=== PATIENT | male | born 1970 | race Caucasian/White ===

== ENCOUNTER 2019-10-12 06:42 | Outpatient (CLI) | payer OTHER, SELFPAY ==
--- NOTE | ~2019-10-12 | CT_ITS ---
EXAMINATION: CT chest abdomen pelvis w con DATE: 10/12/2019 07:06 INDICATION: Restaging sigmoid colon cancer TECHNIQUE: Computed tomography (CT) of the chest, abdomen, and pelvis was performed with 100 cc Omnip aque 350 intravenous contrast. Automated exposure control and iterative reconstruction technique were employed. Exam dose: 557.28 mGy-cm total exam DLP. COMPARISON: 07/03/2019 CT chest abdomen pelvis FINDINGS: CHEST CT: There are calcified mediastinal and right hilar nodes and calcified right middle lobe pulmonary granu amanda consistent with old granulomatous disease. No hilar or mediastinal mass lesion or lymphadenopathy. Normal heart size. No pericardial effusion. No thoracic aortic aneurysm. No pulmonary infiltrate or consolidation or pulmonary mass lesion is detected. ABDOMEN/PELVIS CT: The liver, gallbladder, spleen, pancreas and adrenal glands are unremarkable. No significant change in size of a calcified lake mass along the right common iliac lake chain sinc e 07/03/2019. Stable shotty periaortic and aortocaval nonenlarged lymph nodes. Normal caliber of the abdominal aorta. There is a suture line at the distal sigmoid area. No bowel obstruction or intraperitoneal free air i s detected. IMPRESSION: No significant change since 07/03/2019: stable prominently calcified right common iliac lake mass, stable shotty nonenlarged periaortic and aortocaval lymph nodes Reviewed, dictated and finalized at [facility]. Reviewed, dictated and finalized at [facility]. IMPRESSION: No significant change since 07/03/2019: stable prominently calcifi ed right common iliac lake mass, stable shotty nonenlarged periaortic and aort ocaval lymph nodes
== END 2019-10-12 06:43 | disposition home or self-care (01) ==
PROVIDERS: PCP Emergency Medicine; Visit Provider Internal Medicine Hematology & Oncology
DX: C18.7 Malignant neoplasm of sigmoid colon (principal)
CPT/HCPCS: 71260; 74177; Q9967

== ENCOUNTER 2020-01-14 10:39 | Outpatient (CLI) | payer OTHER, SELFPAY ==
--- NOTE | ~2020-01-14 | XR_ITS ---
EXAMINATION: XR fl port a cath w contrast DATE: 01/14/2020 11:23 INDICATION: Recent injury to the chest with bruising at the site of a recently placed port catheter. TECHNIQUE: A cine run of 120 fluoroscopic images of the chest were obtained during injection of Omnip aque 240 intravenous contrast into the patient's right internal jugular central venous port catheter. The amount of fluoroscopy time used during this procedure was 0.1 minutes. COMPARISON: None. FINDINGS: Images demonstrate contrast filling the reservoir and catheter of a right internal jugular central venous port catheter. Contrast reaches fourth from the distal tip of the catheter which is po sitioned in the right atrium. No evident contrast leak, kink or discontinuity in the catheter. Calcif ied nodules in the right lower lung zone consistent with old granulomatous disease. Visualized portio ns of the lungs are otherwise clear. IMPRESSION: 1. Right internal jugular central venous port catheter which appears intact with injected contrast dr briggs from the distal tip which is in the right atrium. Reviewed, dictated and finalized at [facility]. IMPRESSION: 1. Right internal jugular central venous port catheter which appears intact wit h injected contrast draining from the distal tip which is in the right atrium.
== END 2020-01-14 10:40 | disposition home or self-care (01) ==
LOC: ANHIMG 10:48
PROVIDERS: PCP Emergency Medicine; Visit Provider Internal Medicine Hematology & Oncology
DX: C18.7 Malignant neoplasm of sigmoid colon (principal)
CPT/HCPCS: 36598; Q9966

== ENCOUNTER 2020-01-27 06:45 | Outpatient (CLI) | payer OTHER, SELFPAY ==
--- NOTE | ~2020-01-27 | CT_ITS ---
EXAMINATION: CT chest abdomen pelvis w con DATE: 01/27/2020 07:31 INDICATION: Colon cancer restaging TECHNIQUE: Computed tomography (CT) of the chest, abdomen, and pelvis was performed with 100 cc Omnip aque 350 intravenous contrast. Automated exposure control and iterative reconstruction technique were employed. Exam dose: 1030.87 mGy-cm total exam DLP. COMPARISON: 10/12/2019 CT chest abdomen pelvis FINDINGS: CHEST CT: Right Port-A-Cath catheter present in the upper right atrium. Normal size and homogeneous enhancement of the thyroid gland. There are calcified right pulmonary granulomas and calcified right hilar nodes and calcified mediasti nal nodes, consistent with old pulmonary granulomatous disease. No hilar or mediastinal mass lesion or lymphadenopathy. Normal heart size. No thoracic aortic aneurysm or dissection. No pericardial or pleural effusion. No pulmonary infiltrate or consolidation is evident. No pulmonary mass lesion or apparent pulmonary m etastatic disease is detected. ABDOMEN/PELVIS CT: There is hepatic steatosis. No hepatic space-occupying mass lesion is evident. Spleen measures 12 cm in height; 14 cm is upper limits of normal. No splenic mass lesion. No pancreat ic mass lesion or calcification. The gallbladder is unremarkable. No bile duct or pancreatic duct dilatation. Normal adrenal glands. No renal mass lesion. No urinary tract calculus or hydroureteronephrosis. Normal caliber of the abdominal aorta. The urinary bladder, prostate gland and seminal vesicles are unremarkable. No interval intraperitoneal or retroperitoneal or pelvic mass lesion or adenopathy or any ascites is noted compared to 10/12/2019. There is stable probably calcified right common iliac proximal external iliac lake mass, stable shotty nonenlarged periaortic and aortocaval lymph nodes. There is a suture line at the distal sigmoid colon area from colon resection for history of colon can cer. No bowel obstruction or bowel wall thickening, pneumatosis or intraperitoneal free air is detect ed. Skeletal: No suspicious osteolytic or osteoblastic lesions IMPRESSION: No evidence of recurrent or metastatic colon cancer is detected; stable calcified right common and external iliac lake mass, not significantly changed since 10/12/2019 Right Port-A-Cath catheter in upper right atrium Reviewed, dictated and finalized at [facility]. Reviewed, dictated and finalized at [facility]. IMPRESSION: No evidence of recurrent or metastatic colon cancer is detected; s table calcified right common and external iliac lake mass, not significantly c hanged since 10/12/2019 Right Port-A-Cath catheter in upper right atrium
== END 2020-01-27 06:46 | disposition home or self-care (01) ==
LOC: ANHIMG 06:47
PROVIDERS: PCP Emergency Medicine; Visit Provider Internal Medicine Hematology & Oncology
DX: C18.7 Malignant neoplasm of sigmoid colon (principal); Z95.828 Presence of other vascular implants and grafts
CPT/HCPCS: 71260; 74177; 99211; G0463; Q9967

== ENCOUNTER 2020-05-03 09:26 | Outpatient (CLI) | payer OTHER, SELFPAY ==
--- NOTE | ~2020-05-03 | CT_ITS ---
EXAMINATION: CT chest abdomen pelvis w con DATE: 05/03/2020 10:06 INDICATION: Malignant neoplasm of the sigmoid colon TECHNIQUE: Transaxial computed tomographic images of the chest, abdomen, and pelvis were obtained aft er the administration of 100 cc of Omnipaque 350 intravenous contrast. The dose-length product (DLP) was 1161.22 mGy-cm. Automated exposure control and iterative reconstruction technique were employed. COMPARISON: 01/27/2020, 10/11/2018, 07/10/2018 FINDINGS: CHEST CT: There is mild dependent atelectasis. Calcified pulmonary nodules and calcified right hilar and medias tinal lymph nodes are consistent with old granulomatous disease. There is no pleural effusion or pneu mothorax. Mild right perihilar lymphadenopathy is stable. The heart size is normal. A right internal jugular Port-A-Cath ends with its tip in the proximal right atrium. ABDOMEN/PELVIS CT: The liver is diffusely low in attenuation when compared with the spleen, consisten t with hepatic steatosis. The spleen, pancreas, gallbladder, and adrenal glands are normal. The kidne ys are unremarkable. There is an 2.9 x 2.9 x 6.7 cm calcified mass in the right retroperitoneum which is stable since the most recent comparison but decreased in size since PET CT dated 07/10/2019. Nikolas tional mild retroperitoneal lymphadenopathy is unchanged. There is no new lymphadenopathy identified. Surgical changes are noted in the sigmoid colon. There is no free intraperitoneal gas or evidence of bowel obstruction. There is mild lumbar spondylosis. There are tiny umbilical and inguinal hernias containing fat. IMPRESSION: 1. Stable right retroperitoneal mass and mild lymphadenopathy, consistent with treated metastatic dis ease. No new metastases identified. Reviewed, dictated and finalized at [facility]. IMPRESSION: 1. Stable right retroperitoneal mass and mild lymphadenopathy, consistent with treated metastatic disease. No new metastases identified.
== END 2020-05-03 09:27 | disposition home or self-care (01) ==
PROVIDERS: PCP Emergency Medicine; Visit Provider Internal Medicine Hematology & Oncology
DX: C18.7 Malignant neoplasm of sigmoid colon (principal)
CPT/HCPCS: 71260; 74177; Q9967

== ENCOUNTER 2020-07-26 09:40 | Outpatient (CLI) | payer OTHER, SELFPAY ==
--- NOTE | ~2020-07-26 | CT_ITS ---
EXAMINATION: CT chest abdomen pelvis w con DATE: 07/26/2020 10:23 INDICATION: Malignant neoplasm of the sigmoid colon TECHNIQUE: Transaxial computed tomographic images of the chest, abdomen, and pelvis were obtained aft er the administration of 100 cc of Omnipaque 350 intravenous contrast. The dose-length product (DLP) was 1049.02 mGy-cm. Automated exposure control and iterative reconstruction technique were employed. COMPARISON: 05/03/2020 FINDINGS: CHEST CT: A right internal jugular Port-A-Cath ends with its tip in the proximal right atrium. There is space o pacities are identified. There is no pleural effusion or pneumothorax. The heart size is normal. The previously described mild right hilar lymphadenopathy has decreased. Calcified pulmonary nodules and calcified hilar and mediastinal lymph nodes are consistent with old granulomatous disease. ABDOMEN/PELVIS CT: The liver is diffusely low in attenuation when compared with the spleen, consistent with hepatic stea tosis. The spleen, pancreas, gallbladder, and adrenal glands are normal. The kidneys are unremarkable . There is a stable partially calcified mass in the right retroperitoneum. Mild retroperitoneal lymph adenopathy also persists without significant change. There is no free intraperitoneal gas or evidence of bowel obstruction. A surgical anastomosis is noted in the sigmoid colon. IMPRESSION: 1. Stable right retroperitoneal mass and retroperitoneal lymphadenopathy, consistent with treated met astatic disease. No new metastases evident in the chest, abdomen, or pelvis. Reviewed, dictated and finalized at location [facility]. UATE STUDENT IMPRESSION: 1. Stable right retroperitoneal mass and retroperitoneal lymphadenopathy, consi stent with treated metastatic disease. No new metastases evident in the chest, abdomen, or pelvis.
== END 2020-07-26 09:41 | disposition home or self-care (01) ==
LOC: ANHIMG 09:44
PROVIDERS: PCP Emergency Medicine; Visit Provider Internal Medicine Hematology & Oncology
DX: C18.7 Malignant neoplasm of sigmoid colon (principal); K76.0 Fatty (change of) liver, not elsewhere classified
CPT/HCPCS: 71260; 74177; Q9967

== ENCOUNTER 2020-12-13 09:47 | Outpatient (CLI) | payer MEDICARE, MEDICAID, SELFPAY ==
--- NOTE | ~2020-12-13 | CT_ITS ---
EXAMINATION: CT chest abdomen pelvis w con DATE: 12/13/2020 10:08 INDICATION: Colon cancer. TECHNIQUE: Computed tomography (CT) of the chest, abdomen, and pelvis was performed with 100 mL Omnip aque 350 intravenous contrast. Automated exposure control and iterative reconstruction technique were employed. The dose-length product was 984.92 mGy-cm. COMPARISON: CT 07/26/2020 FINDINGS: CHEST CT: The lungs demonstrate mild atelectasis. Calcified right lung nodules and calcified right hilar and me diastinal lymph nodes are consistent with old granulomatous disease. No pleural effusion. There is a right internal jugular port with tip in right atrium. The heart size is normal. No pericardial effusi on. There is mild thoracic spondylosis. ABDOMEN/PELVIS CT: The liver, gallbladder, spleen, pancreas, adrenal glands, and kidneys are normal. There are no dilate d loops of bowel. There is an anastomosis in the sigmoid colon. The appendix is normal. There is aort ocaval, left para-aortic, and right common iliac lymphadenopathy, some of which is calcified. For exa mple, a calcified right common iliac node measures 2.9 x 3.2 cm, stable from 07/26/2020 and decreased from 4.9 x 4.8 cm on 06/16/2018. There is a right inguinal hernia containing fat. There is moderate lo wer lumbar spondylosis. IMPRESSION: 1. Stable pelvic and retroperitoneal lymphadenopathy, consistent with metastatic disease. Reviewed, dictated and finalized at [facility]. IMPRESSION: 1. Stable pelvic and retroperitoneal lymphadenopathy, consistent with metastati c disease.
== END 2020-12-13 09:48 | disposition home or self-care (01) ==
PROVIDERS: PCP Emergency Medicine; Visit Provider Internal Medicine Hematology & Oncology
DX: C18.7 Malignant neoplasm of sigmoid colon (principal); R59.0 Localized enlarged lymph nodes
CPT/HCPCS: 71260; 74177; Q9967

== ENCOUNTER 2021-04-21 06:51 | Outpatient (CLI) | payer MEDICARE, MEDICAID, SELFPAY ==
--- NOTE | ~2021-04-21 | CT_ITS ---
EXAMINATION: CT chest abdomen pelvis w con DATE: 04/21/2021 07:15 INDICATION: Malignant neoplasm of the sigmoid colon TECHNIQUE: Transaxial computed tomographic images of the chest, abdomen, and pelvis were obtained aft er the administration of 100 cc of Omnipaque 350 intravenous contrast. The dose-length product (DLP) was 924.16 mGy-cm. Automated exposure control and iterative reconstruction technique were employed. COMPARISON: 12/13/2020, 07/26/2020 FINDINGS: CHEST CT: There is mild dependent atelectasis. Calcified pulmonary nodules and calcified right hilar and medias tinal lymph nodes are consistent with old granulomatous disease. No pathologically enlarged thoracic lymph nodes are identified. The heart size is normal. No pleural effusion or pneumothorax is identifi ed. A right internal jugular Port-A-Cath ends with its tip in the right atrium. ABDOMEN/PELVIS CT: The liver, spleen, pancreas, gallbladder, and adrenal glands are normal. The kidneys are unremarkable . Aortocaval, left periaortic, and right common iliac lymphadenopathy is stable to slightly improved. For instance, a 3.3 x 2.7 cm partially calcified right common iliac chain lymph node previously rosmery ured 3.2 x 2.9 cm. No new lymphadenopathy is identified. There are no dilated loops of bowel. A surgi patricia anastomosis is noted in the sigmoid colon. There is a right extrarenal hernia containing fat. The re is moderate lumbar spondylosis. IMPRESSION: 1. Stable slightly improved pelvic and retroperitoneal lymphadenopathy, consistent with metastatic di sease. No new metastasis identified. Reviewed, dictated and finalized at [facility]. IMPRESSION: 1. Stable slightly improved pelvic and retroperitoneal lymphadenopathy, consist ent with metastatic disease. No new metastasis identified.
== END 2021-04-21 06:52 | disposition home or self-care (01) ==
PROVIDERS: PCP Emergency Medicine; Visit Provider Internal Medicine Hematology & Oncology
DX: C18.7 Malignant neoplasm of sigmoid colon (principal); R59.0 Localized enlarged lymph nodes
CPT/HCPCS: 71260; 74177; Q9967

== ENCOUNTER 2021-08-24 09:39 | Outpatient (CLI) | payer MEDICARE, MEDICAID, SELFPAY ==
--- NOTE | ~2021-08-24 | CT_ITS ---
EXAMINATION: CT chest abdomen pelvis w con DATE: 08/24/2021 10:05 INDICATION: Restaging of malignant neoplasm of sigmoid colon TECHNIQUE: Computed tomography (CT) of the chest, abdomen, and pelvis was performed with 100 cc Omnip aque 350 intravenous contrast. Automated exposure control and iterative reconstruction technique were employed. Exam dose: 965.71 mGy-cm total exam DLP. COMPARISON: 04/21/2021, 12/13/2020, 07/26/2020, 05/03/2020, 01/27/2020 CT chest abdomen pelvis examinations FINDINGS: CHEST CT: Calcified lobe granuloma and calcified right hilar and mediastinal nodes, consistent with old pulmona ry granulomatous disease. There is minimal discoid atelectasis in the right lower lobe. No pulmonary infiltrate or consolidatio n or pulmonary mass lesion is evident. No hilar or mediastinal mass lesion or lymphadenopathy. No thoracic aortic aneurysm or dissection. Normal heart size. No pericardial or pleural effusion. Small sliding hiatal hernia. ABDOMEN/PELVIS CT: Suggestion of a new approximately 1.5 cm x 2 subtle mass at medial dome of the liver. No hepatic spac e-occupying mass lesion is noted otherwise. The gallbladder is present. No gallbladder wall thickening or pericholecystic fluid or fat stranding. No bile duct or pancreatic duct dilatation. No pancreatic mass lesion or calcification. Splenic size is within normal range. Normal morphology of the adrenal glands. No renal mass lesion or urinary tract calculus or hydroureteronephrosis. Normal caliber of the abdominal aorta. Previous distal left periaortic lymph node currently measures 14 x 23.5 mm compared to 7 x 17 mm on 1 . There is increased calcified mass along the right common and proximal external iliac node chain, rosmery uring up to 8.1 cm vertical dimension compared to approximately 6.5 cm on 05/01/2021, measuring up to 4.2 cm transverse dimension compared to 3.2 cm previously. There is a suture line at the distal sigmoid colon. No bowel obstruction. There is a prominent amount of fecal material in the colon. The prostate gland is moderately enlarged. There is diffuse thickening of the urinary bladder wall. Small bilateral fat-containing inguinal hernias. No suspicious osteolytic or osteoblastic lesions are noted. IMPRESSION: Suggestion of a new hepatic metastasis Increased adenopathy in the distal left periaortic area and along the right common and proximal exter nal iliac lake chains Reviewed, dictated and finalized at [facility]. Reviewed, dictated and finalized at [facility]. 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
== END 2021-08-24 09:40 | disposition home or self-care (01) ==
LOC: ANHIMG 09:44
PROVIDERS: PCP Emergency Medicine; Visit Provider Internal Medicine Hematology & Oncology
DX: C18.7 Malignant neoplasm of sigmoid colon (principal)
CPT/HCPCS: 71260; 74177; Q9967

== ENCOUNTER 2021-10-26 15:14 | Emergency (ER) | payer MEDICARE, MEDICAID, SELFPAY ==
--- NOTE | ~2021-10-26 | CT_ITS ---
EXAMINATION: CT abdomen pelvis w con DATE: 10/26/2021 16:37 INDICATION: CVA tenderness, lower back pain. History of malignant sigmoid colon neoplasm TECHNIQUE: Computed tomography (CT) of the abdomen and pelvis was performed with 100 CC Omnipaque 350 intravenous contrast. Automated exposure control and iterative reconstruction technique were employe d. Exam dose: 667.79 mGy-cm total exam DLP. COMPARISON: August 24, 2021, April 21, 2021, December 13, 2020, July 262020, July 26T chest abdomen pelvis FINDINGS: There is old pulmonary granulomatous disease, including middle lobe calcified pulmonary tra angelia, right hilar and subcarinal calcified lymph nodes . No pulmonary infiltrate or consolidation is noted in the included lower lung zones. Normal heart size. No pericardial or pleural effusion. Again noted is an approximately 2 cm mass at the medial hepatic dome, possibly a metastasis. The live r, spleen, pancreas, adrenal glands and kidneys are otherwise unremarkable. Normal caliber of the abdominal aorta. Interval mild enlargement of extensively calcified adenopathy at the distal abdominal aorta and right common and external iliac lake chain, with some surrounding fat stranding suggesting some adjacent inflammation or tumor infiltration. Stable up to approximately 1.4 x 2.5 cm left common iliac lymphadenopathy. Small fat-containing right inguinal hernia. Status post sigmoid colon resection. No bowel obstruction, bowel wall thickening, pneumatosis or intr aperitoneal free air. Small fat-containing umbilical hernia. Moderate degenerative disc disease and mild retrolisthesis at L5-S1. No suspicious osteolytic or osteoblastic lesions are noted. IMPRESSION: Stable hepatic dome mass, likely a metastatic deposit Mildly increased right distal abdominal aortic and common iliac lymphadenopathy with surrounding fat stranding which may indicate inflammation or tumor infiltration Status post sigmoid colon resection Fat-containing right inguinal hernia Small fat-containing umbilical hernia Small sliding hiatal hernia Reviewed, dictated and finalized at [facility]. Reviewed, dictated and finalized at [facility]. IMPRESSION: Stable hepatic dome mass, likely a metastatic deposit Mildly increased right distal abdominal aortic and common iliac lymphadenopathy with surrounding fat stranding which may indicate inflammation or tumor infilt ration Status post sigmoid colon resection Fat-containing right inguinal hernia Small fat-containing umbilical hernia Small sliding hiatal hernia
[2021-10-26 15:16] VITALS: BP 114/77; PULSE 100; RESP 16; TEMP 36.4; O2SAT 99
--- NOTE | 2021-10-26 15:37 | ED.BACK ---
HPI - Back Pain/Injury General Chief Complaint: Back Pain/Injury Stated Complaint: R. sided back pain Time Seen by Provider: 10/26/21 15:30 History of Present Illness HPI Narrative: 51-year-old male presents the emergency room with acute onset of right hip/CVA tenderness that began last night. Patient is unable to describe his pain, saying it just hurts . Patient denies any alleviating or aggravating factors with the pain. Patient denies dysuria, difficulty urinating, or hematuria. Patient denies abdominal pain. Denies fever. Patient has a known history of colon cancer, which he is receiving chemotherapy for. Patient also states that his oncologist recently found a lesion on his liver. Related Data Home Medications Medication Instructions Recorded Confirmed cyanocobalamin (vitamin B-12) 1,000 mcg PO DAILY 04/28/19 10/04/21 ferrous sulfate 324 mg PO DAILY 04/28/19 10/04/21 ondansetron HCl 4 mg PO Q4-6H PRN 04/28/19 10/04/21 aspirin [Adult Low Dose Aspirin] 81 mg PO DAILY 09/14/19 10/04/21 potassium chloride [Klor-Con 10] 10 meq PO BID 04/19/20 10/04/21 pediatric multivitamin no.76 1 tablet PO DAILY 04/21/20 10/04/21 [Flintstones Complete] Allergies Allergy/AdvReac Type Severity Reaction Status Date / Time No Known Allergies Allergy Verified 10/26/21 15:29 Review of Systems Review of Systems: CONSTITUTIONAL: Denies fever, chills, or sweats. EYES: Denies visual changes, redness, or discharge. ENT: Denies rhinorrhea, congestion, sore throat, or otalgia. CARDIOVASCULAR: Denies chest pain, palpitations, or edema. RESPIRATORY: Denies cough or dyspnea. GASTROINTESTINAL: Denies abdominal pain, nausea, diarrhea, vomiting GENITOURINARY: Denies dysuria or hematuria. SKIN: Denies rash or itching. MUSCULOSKELETAL: Reports low back pain NEUROLOGIC: Denies headache, numbness, dizziness, or weakness. PSYCHIATRIC: Denies anxiety or depression. Exam Narrative: GENERAL: Well-appearing, well-nourished, and in no acute distress. HEAD: Normocephalic, atraumatic. EYES: PERRLA and EOMI. CHEST: Clear to auscultation. No respiratory distress. No wheezes rales or rhonchi HEART: Regular rate and rhythm. No murmur heard. Normal peripheral pulses. ABDOMEN: Soft, nontender, nondistended, normal active bowel sounds. EXTREMITIES: Normal range of motion. No edema. Tenderness to the right iliac crest. No signs of soft tissue swelling, tenderness, ecchymosis SKIN: Warm, dry, no rash. NEURO: No focal deficits. Alert and oriented x3. PSYCH: Normal mood and affect. Course Vital Signs Vital signs: Vital Signs Temperature 36.4 C 10/26/21 15:16 Pulse Rate 100 10/26/21 15:16 Respiratory Rate 16 10/26/21 15:16 Blood Pressure 114/77 10/26/21 15:16 Pulse Oximetry 99 10/26/21 15:16 Temperature 36.4 C 10/26/21 15:16 Pulse Rate 100 10/26/21 15:16 Respiratory Rate 16 10/26/21 15:16 Blood Pressure 114/77 10/26/21 15:16 Pulse Oximetry 99 10/26/21 15:16 MDM - Back Pain/Injury MDM Narrative Medical decision making narrative: 51-year-old male presented emergency room with acute onset of right hip pain. Patient has a history of colon cancer with mets to the liver. CT scan was obtained to evaluate for possible bone mets. CT was negative for any new acute intra-abdominal abnormalities. CBC and CMP were unremarkable. Patient responded well to IV Toradol. Patient likely experiencing muscle skeletal pain. Medical Records Attestation: I reviewed the patient's medical records. Lab Data Attestation: I reviewed the patient's lab results. Result diagrams: 10/26/21 15:52 10/26/21 15:52 Labs: Lab Results 10/26/21 10/26/21 10/26/21 Range/Units 15:52 15:52 16:10 WBC 8.4 (4.5-10.0) K/mm3 RBC 4.84 (4.6-6.20) M/mm3 Hgb 15.0 (14.0-18.0) g/dL Hct 42.9 (42.0-52.0) % MCV 88.6 D (80-100) fl MCH 31.0 (26-34) pg MCHC 35.0 (32-36) g/dl RDW 13.3 (11.5-14.5)
[2021-10-26 15:57] LABS: Basophils Percent Auto 0.5 % (0.2-1.2); Eosinophils Absolute Auto 0.1 K/mm3 (0-0.3); Eosinophils Percent Auto 0.6 % (0-4.4); Hematocrit 42.9 % (42.0-52.0); Immature Granulocyte Absolute 0.03 K/mm3 (0.00-0.031); Immature Granulocyte Percent A 0.4 % (0-0.5); Lymphocytes Absolute Auto 1.31 K/mm3 (0.9-3.2); Lymphocytes Percent Auto 15.6 % (18.3-44.2); Mean Corpuscular Volume 88.6 fl (80-100); Mean Platelet Volume 9.1 fl (7.4-10.4); Monocytes Absolute Auto 0.8 K/mm3 (0.1-0.6); Monocytes Percent Auto 9.4 % (2.6-8.5); Neutrophils Absolute Auto 6.2 K/mm3 (1.3-6.7); Neutrophils Percent Auto 73.5 % (45.5-73.1); Platelet Count Result 273 k/mm3 (150-375); Red Blood Count 4.84 M/mm3 (4.6-6.20); Red Cell Distribution Width 13.3 % (11.5-14.5); White Blood Count 8.4 K/mm3 (4.5-10.0)
[2021-10-26] MEDS: KETOROLAC 30 MG/ML VIAL (*BKC) IV PUSH (16:08)
[2021-10-26 16:14] LABS: Alanine Aminotransferase 30 U/L (4-50); Albumin Level 4.4 g/dL (3.5-5.1); Alkaline Phosphatase 117 U/L (38-126); Anion Gap 7 mmol/L (8-16); Aspartate Amino Transferase 35 U/L (17-59); Bilirubin,Total 0.6 mg/dL (0.2-1.3); Blood Urea Nitrogen 14 mg/dL (9-20); Calcium 9.2 mg/dL (8.4-10.2); Carbon Dioxide 27 mmol/L (22-30); Chloride 101 mmol/L (98-107); Estimated Glomerular Filt Rate > 60; Glucose 124 mg/dL (65-110); Potassium 4.1 mmol/L (3.4-5.0); Sodium 135 mmol/L (137-145)
[2021-10-26 16:28] LABS: Appearance Urine Clear (Clear); Bilirubin Urine Negative (Negative); Blood Urine Negative (Negative); Color Urine Yellow (Yellow); Glucose Urine UA Negative (Negative); Ketones Urine Negative (Negative); Leukocyte Esterase Ur Negative LEU/UL (Negative); Nitrate Urine Negative (Negative); Protein Urine Negative (Negative); Specific Grav Ur 1.025 (1.001-1.035); Urobilinogen Urine 0.2 mg/dL (<2.0); pH Urine 6.5 (5.0-9.0)
[2021-10-26 16:33] LABS: Bacteria Urine Trace /hpf; Mucus Urine Few /lpf; WBC Urine 0-3 /hpf
[2021-10-26 16:36] LABS: Add Urine Microscopic? NO
[2021-10-26 17:54] VITALS: BP 111/73; PULSE 95; RESP 16; O2SAT 98
== END 2021-10-26 17:56 | disposition home or self-care (01) ==
PROVIDERS: Emergency Provider Nurse Practitioner Family
DX: M54.50 Low back pain, unspecified (principal); C18.9 Malignant neoplasm of colon, unspecified; C78.7 Secondary malignant neoplasm of liver and intrahepatic bile duct; Z79.82 Long term (current) use of aspirin; Z90.49 Acquired absence of other specified parts of digestive tract; Z79.899 Other long term (current) drug therapy; K40.90 Unilateral inguinal hernia, without obstruction or gangrene, not specified as recurrent; K42.9 Umbilical hernia without obstruction or gangrene; K44.9 Diaphragmatic hernia without obstruction or gangrene
CPT/HCPCS: 36415; 74177; 80053; 81003; 85025; 96374; 99284; J1885; Q9967

== ENCOUNTER 2022-01-17 18:22 | Emergency (ER) | payer OTHER, SELFPAY ==
[2022-01-17] VITALS (22 sets, daily range): BP systolic 103–119; BP diastolic 67–84; PULSE 89–129; RESP 14–28; TEMP 36.9–37.9; O2SAT 96–99
--- NOTE | ~2022-01-17 | XR_ITS ---
EXAMINATION: XR chest 1V portable Exam Date/Time: 01/17/2022 19:10 CDT HISTORY: COUGH,FATIGUE,generalized malaise X 1 day hx port in 2018 Comparison: 06/20/2018. RESULT: Lines, tubes, and devices: Right chest implanted port, tip at the cavoatrial junction. Lungs and pleura: Clear. Cardiomediastinal silhouette: Stable cardiomediastinal silhouette. Other: No acute osseous or upper abdominal finding. IMPRESSION: No acute cardiopulmonary process. Reviewed, dictated and finalized at location K.
--- NOTE | 2022-01-17 19:14 | ED.GENADULT ---
HPI - General Adult General Chief complaint: Upper Respiratory Infection Stated complaint: sore throat, cough, fatigue Time Seen by Provider: 01/17/22 19:02 Source: RN notes reviewed History of Present Illness HPI narrative: Patient presents emergency department from home for upper respiratory infection patient states that symptoms began yesterday. States he has cough this been nonproductive as well as a sore throat and fatigue. States that he has had some mild nausea but denies any vomiting or diarrhea. Patient states he does have a history of colon cancer and is currently on chemotherapy with last chemo 2 weeks ago and is followed by Dr. marc. Patient states family is present states the ulcer that was upper respiratory infection patient states he has not been vaccinated for COVID-19 Related Data Home Medications Medication Instructions Recorded Confirmed cyanocobalamin (vitamin B-12) 1,000 mcg PO DAILY 04/28/19 01/03/22 1,000 mcg capsule ferrous sulfate 324 mg (65 mg 324 mg PO DAILY 04/28/19 01/03/22 iron) tablet,delayed release ondansetron HCl 4 mg tablet 4 mg PO Q4-6H PRN Pain 04/28/19 01/03/22 aspirin 81 mg tablet,delayed 81 mg PO DAILY 09/14/19 01/03/22 release (Adult Low Dose Aspirin) potassium chloride 10 mEq 10 meq PO BID 04/19/20 01/03/22 tablet,extended release (Klor-Con) pediatric multivitamin no.76 1 tablet PO DAILY 04/21/20 01/03/22 (Flintstones Complete chewable tablet) lidocaine-prilocaine 2.5 %-2.5 % See Rx Instructions .Route .COMPLEX 11/08/21 01/03/22 topical cream doxycycline calcium 12/06/21 Allergies Allergy/AdvReac Type Severity Reaction Status Date / Time No Known Allergies Allergy Verified 01/17/22 18:48 Review of Systems Review of Systems: Gen.: Reports fever Eyes: Denies eye pain or visual change ENT: See HPI Respiratory: Denies shortness of breath reports cough CV: Denies chest pain or palpitations GI: Denies abdominal pain nausea, emesis or diarrhea Musculoskeletal: Denies back pain or muscle pain Neuro: Denies numbness, tingling, weakness or focal weakness Skin: Denies rash Except as documented, all other systems reviewed and negative [facility] Past Medical History Medical History (Updated 01/17/22 @ 22:57 by Aris Lopez DO) Malignant neoplasm of sigmoid colon Social History Social History (Updated 01/17/22 @ 19:15 by Aris Lopez DO) Smoking status: Never smoker Exam Narrative: APPEARANCE: No acute distress, nontoxic, resting in bed EYES: EOMI HEENT: Normocephalic, atraumatic, OMM mild erythema no exudate posterior pharynx and bilateral tonsils uvula midline RESPIRATORY: No respiratory distress Clear to auscultation bilaterally with no rhonchi wheezing or rales. CARDIOVASCULAR: Regular rate and rhythm without murmurs rubs or gallops. ABDOMINAL: Soft, nontender, nondistended, no rebound or guarding MUSCULOSKELETAl: Moves all extremities. No clubbing, cyanosis or edema. NEURO: Awake and alert. Following commands, speech normal, no focal deficits SKIN:: Warm, dry. No rashes lesions or abrasions PSYCHIATRIC: Normal affect/mood, Course Course Emergency Course: Patient states he is feeling much better at this time Discussed with Dr. marc agrees with plan for discharge at this time agrees with plan to start patient on Paxlovid Discussed with patient results of workup and diagnosis. Discussed need for follow-up with primary care, proper use of medication, and reasons to return to the emergency department. Patient understands and agrees to current treatment plan Vital Signs Vital signs: Vital Signs Temperature 99.9 F H 01/17/22 18:25 Pulse Rate 113 H 01/17/22 18:25 Respiratory Rate 18 01/17/22 18:25 Blood Pressure 103/83 01/17/22 18:25 Pulse Oximetry 98 01/17/22 18:25 Oxygen Delivery Room Air 01/17/22 18:25 Temperature 98.5 F 01/17/22 22:40 Pulse Rate 100 01/17/22 22:40 Respiratory Rate 17 01/17/22 22:
--- NOTE | 2022-01-17 19:22 | PC.NURSE ---
Patient report given to LILLY Ross. All questions answered and care of patient transferred.
[2022-01-17] MEDS: SODIUM CHLORIDE 0.9% IV 1,000 ML 999 ML IV CONT ×2 (19:58→22:09)
[2022-01-17 20:01] LABS: Basophils Percent Auto 0.3 % (0.2-1.2); Hemoglobin 13.7 g/dL (14.0-18.0); Immature Granulocyte Absolute 0.02 K/mm3 (0.00-0.031); Immature Granulocyte Percent A 0.3 % (0-0.5); Lymphocytes Absolute Auto 0.65 K/mm3 (0.9-3.2); Lymphocytes Percent Auto 8.5 % (18.3-44.2); Mean Corpuscular HGB Conc 32.6 g/dl (32-36); Mean Corpuscular Hemoglobin 29.8 pg (26-34); Mean Corpuscular Volume 91.5 fl (80-100); Mean Platelet Volume 9.3 fl (7.4-10.4); Monocytes Absolute Auto 0.8 K/mm3 (0.1-0.6); Monocytes Percent Auto 10.6 % (2.6-8.5); Neutrophils Absolute Auto 6.2 K/mm3 (1.3-6.7); Neutrophils Percent Auto 80.3 % (45.5-73.1); Platelet Count Result 203 k/mm3 (150-375); Red Blood Count 4.59 M/mm3 (4.6-6.20); White Blood Count 7.7 K/mm3 (4.5-10.0)
[2022-01-17 20:10] LABS: Lipase 38 U/L (23-300)
[2022-01-17 20:13] LABS: Alanine Aminotransferase 53 U/L (6-50); Albumin Level 4.3 g/dL (3.5-5.1); Alkaline Phosphatase 117 U/L (38-126); Anion Gap 5 mmol/L (8-16); Aspartate Amino Transferase 38 U/L (17-59); Bilirubin,Total 0.7 mg/dL (0.2-1.3); Blood Urea Nitrogen 13 mg/dL (9-20); Calcium 8.3 mg/dL (8.4-10.2); Carbon Dioxide 27 mmol/L (22-30); Chloride 104 mmol/L (98-107); Estimated CRCL calculation 101 ml/min; Estimated Glomerular Filt Rate > 60; Glucose 114 mg/dL (65-110); Potassium 3.3 mmol/L (3.4-5.0); Sodium 136 mmol/L (137-145)
[2022-01-17 20:19] LABS: Influenza A QL RT-PCR Negative (Negative); Influenza B QL RT-PCR Negative (Negative); SARS-CoV-2 RNA PCR Positive
[2022-01-17 20:34] LABS: Appearance Urine Clear (Clear); Bilirubin Urine 1+ (Negative); Blood Urine Trace-lysed (Negative); Color Urine Yellow (Yellow); Glucose Urine UA Negative (Negative); Ketones Urine 3+ mg/dL (Negative); Leukocyte Esterase Ur Negative LEU/UL (Negative); Nitrate Urine Negative (Negative); Protein Urine 1+ mg/dL (Negative); Specific Grav Ur 1.025 (1.001-1.035); Urobilinogen Urine 0.2 mg/dL (<2.0); pH Urine 5.5 (5.0-9.0)
[2022-01-17 20:42] LABS: Mucus Urine Heavy /lpf; Squamous Epithelial Cell Urine Rare /hpf (Few); WBC Urine 0-3 /hpf
[2022-01-17 21:01] LABS: Add Urine Microscopic? YES
[2022-01-17] MEDS: POTASSIUM CHLORIDE 20 MEQ TABLET PO (22:07)
[2022-01-18] VITALS (8 sets, daily range): BP systolic 107–115; BP diastolic 73–78; PULSE 91–93; RESP 18–23; TEMP 37.1; O2SAT 96–98
[2022-01-18] MEDS: HEPARIN SODIUM LOCK FLUSH 500 UNITS/5 ML VIAL IV PUSH (00:58)
== END 2022-01-18 01:10 | disposition home or self-care (01) ==
PROVIDERS: Emergency Provider Emergency Medicine
DX: U07.1 COVID-19 (principal)
CPT/HCPCS: 36415; 71045; 80053; 81001; 83690; 85025; 87502; 96361; 96365; 96367; 96375; 99284; A9270; C9803; J0131; J1642; J7030; U0003; U0005

== ENCOUNTER 2022-01-25 07:55 | Outpatient (CLI) | payer OTHER, SELFPAY ==
--- NOTE | ~2022-01-25 | US_ITS ---
EXAMINATION: US right upper quadrant DATE: 01/25/2022 08:41 INDICATION: Abnormal liver function tests. TECHNIQUE: Multiple grayscale and Doppler ultrasound images of the abdomen were obtained. COMPARISON: CT abdomen and pelvis 10/26/2021 FINDINGS: The pancreas is obscured by bowel gas. There is diffuse hepatic steatosis with focal sparin g in the gallbladder fossa. There is normal flow in main portal vein. The gallbladder is normal in si ze and contains sludge. No gallbladder wall thickening or sonographic Hoang sign. The common duct is normal and measures 4 mm. IMPRESSION: 1. Diffuse hepatic steatosis. 2. Gallbladder sludge. No evidence of acute cholecystitis. Reviewed, dictated and finalized at location A.
== END 2022-01-25 07:56 | disposition home or self-care (01) ==
LOC: ANHIMG 07:59
PROVIDERS: Visit Provider Emergency Medicine
DX: R74.01 Elevation of levels of liver transaminase levels (principal); R10.9 Unspecified abdominal pain; K76.0 Fatty (change of) liver, not elsewhere classified
CPT/HCPCS: 76705

== ENCOUNTER 2022-01-31 09:09 | Outpatient (CLI) | payer OTHER, SELFPAY ==
[2022-01-31 09:50] LABS: Anion Gap 4 mmol/L (8-16); Blood Urea Nitrogen 7 mg/dL (9-20); Calcium 8.9 mg/dL (8.4-10.2); Carbon Dioxide 29 mmol/L (22-30); Chloride 106 mmol/L (98-107); Estimated Glomerular Filt Rate > 60; Glucose 114 mg/dL (65-110); Potassium 4.1 mmol/L (3.4-5.0); Sodium 139 mmol/L (137-145)
[2022-01-31 09:53] LABS: Appearance Urine Clear (Clear); Bilirubin Urine Negative (Negative); Color Urine Yellow (Yellow); Glucose Urine UA Negative (Negative); Ketones Urine Negative (Negative); Leukocyte Esterase Ur Negative LEU/UL (NEGATIVE); Nitrate Urine Negative (Negative); Protein Urine Negative (Negative); Urobilinogen Urine 0.2 mg/dL (<2.0); pH Urine 6.5 (5.0-9.0)
[2022-01-31 09:59] LABS: Add Urine Microscopic? YES; Blood Urine Trace-Intact (Negative)
[2022-01-31 10:01] LABS: Iron 72 ug/dL (49-181)
[2022-01-31 10:09] LABS: Mucus Urine Rare /lpf; WBC Urine 0-3 /hpf (0-3)
[2022-01-31 10:11] LABS: Percent Iron Saturation 21 % (20-50)
[2022-01-31 10:21] LABS: Prostate Specific Antigen 5.9 ng/mL (< OR = 4.0)
[2022-01-31 10:35] LABS: Hepatitis B Surface Antigen Negative (Negative)
[2022-01-31 10:40] LABS: HAV RESULT Negative (Negative); Hepatitis B Core IgM Result Negative (Negative)
[2022-01-31 10:52] LABS: Hepatitis C Virus Antibody Negative (Negative)
[2022-01-31 11:13] LABS: Hematocrit 45.8 % (42.0-52.0); Hemoglobin 14.5 g/dL (14.0-18.0); Mean Corpuscular HGB Conc 31.7 g/dl (32-36); Mean Corpuscular Hemoglobin 29.4 pg (26-34); Mean Corpuscular Volume 92.7 fl (80-100); Mean Platelet Volume 9.7 fl (7.4-10.4); Platelet Count Result 301 k/mm3 (150-375); Red Blood Count 4.94 M/mm3 (4.6-6.20); Red Cell Distribution Width 14.2 % (11.5-14.5); White Blood Count 5.4 K/mm3 (4.5-10.0)
== END 2022-01-31 09:10 | disposition home or self-care (01) ==
PROVIDERS: Visit Provider Emergency Medicine
DX: D64.9 Anemia, unspecified (principal); R94.5 Abnormal results of liver function studies; R31.9 Hematuria, unspecified; E87.6 Hypokalemia
CPT/HCPCS: 36415; 80048; 80074; 81001; 83540; 83550; 84153; 85027; 88108

== ENCOUNTER 2022-03-20 14:45 | Outpatient (CLI) | payer OTHER, SELFPAY ==
--- NOTE | ~2022-03-20 | CT_ITS ---
EXAMINATION: CT chest abdomen pelvis w con DATE: 03/20/2022 15:28 INDICATION: Malignant neoplasm of the sigmoid colon TECHNIQUE: Transaxial computed tomographic images of the chest, abdomen, and pelvis were obtained aft er the administration of 100 cc of Omnipaque 350 intravenous contrast. The dose-length product (DLP) was 838.92 mGy-cm. Automated exposure control and iterative reconstruction technique were employed. COMPARISON: 10/26/2021 FINDINGS: CHEST CT: There is mild dependent atelectasis. The lungs are free of focal airspace opacities. No pleural effus ion or pneumothorax. Calcified pulmonary nodules and calcified right hilar and mediastinal lymph node s are consistent with old granulomatous disease. A right internal jugular Port-A-Cath ends with its t ip in the right atrium. No pathologically enlarged thoracic lymph nodes are identified. The heart siz e is normal. ABDOMEN/PELVIS CT: A 0.9 cm mass in liver segment Viviana previously measured 2 cm. The spleen, pancreas, gallbladder, and a drenal glands are normal. The kidneys are unremarkable. A 3.2 cm calcified right common iliac chain l ymph node previously measured 4.0 cm. An adjacent 1.5 cm retroperitoneal lymph node previously measur ed 2.3 cm. A 10 mm left external iliac chain lymph node previously measured 14 mm. No worsening lymph adenopathy is identified. There are surgical changes at the rectosigmoid junction. There is no free i ntraperitoneal gas or evidence of bowel obstruction. There is a fat-containing left inguinal hernia. There is moderate lumbar spondylosis. IMPRESSION: 1. Treatment response as evidenced by interval decrease in size of the previously described liver mas s and right external bilateral common iliac chain lymphadenopathy. Reviewed, dictated and finalized at location B. IMPRESSION: 1. Treatment response as evidenced by interval decrease in size of the previous ly described liver mass and right external bilateral common iliac chain lymphad enopathy.
== END 2022-03-20 14:46 | disposition home or self-care (01) ==
PROVIDERS: Visit Provider Internal Medicine Hematology & Oncology
DX: C18.7 Malignant neoplasm of sigmoid colon (principal)
CPT/HCPCS: 71260; 74177; Q9967

== ENCOUNTER 2022-04-25 09:06 | Outpatient (CLI) | payer OTHER, SELFPAY ==
[2022-04-25 10:38] LABS: Iron 72 ug/dL (49-181)
[2022-04-25 10:57] LABS: Percent Iron Saturation 20 % (20-50)
[2022-04-25 11:50] LABS: Transferrin 276 mg/dL (206-381)
== END 2022-04-25 09:07 | disposition home or self-care (01) ==
LOC: ANHLAB 09:10
PROVIDERS: Visit Provider Internal Medicine Gastroenterology
DX: C18.9 Malignant neoplasm of colon, unspecified (principal); D64.89 Other specified anemias
CPT/HCPCS: 36415; 82728; 83540; 83550; 84466

== ENCOUNTER 2022-05-18 11:35 | Outpatient (CLI) | payer OTHER, SELFPAY ==
[2022-05-18 12:03] LABS: Alanine Aminotransferase 71 U/L (6-50); Albumin Level 4.3 g/dL (3.5-5.1); Alkaline Phosphatase 116 U/L (38-126); Aspartate Amino Transferase 36 U/L (17-59); Bilirubin Indirect 0.4 mg/dL (0-1.1); Bilirubin,Total 0.4 mg/dL (0.2-1.3)
== END 2022-05-18 11:36 | disposition home or self-care (01) ==
LOC: ANHLAB 11:38
PROVIDERS: Visit Provider Family Medicine
DX: R94.5 Abnormal results of liver function studies (principal)
CPT/HCPCS: 36415; 82040; 82247; 82248; 84075; 84450; 84460

== ENCOUNTER 2022-06-13 07:54 | Outpatient (CLI) | payer OTHER, SELFPAY ==
--- NOTE | ~2022-06-13 | CT_ITS ---
EXAMINATION: CT abdomen pelvis w con DATE: 06/13/2022 08:26 INDICATION: Malignant neoplasm of sigmoid colon; restaging TECHNIQUE: Computed tomography (CT) of the abdomen and pelvis was performed with 100 CC Omnipaque 350 intravenous contrast. Automated exposure control and iterative reconstruction technique were employe d. Exam dose: 583.04 mGy-cm total exam DLP. COMPARISON: 03/20/2022 CT chest abdomen pelvis / CT abdomen pelvis FINDINGS: The lung bases are clear. Normal heart size. No pericardial or pleural effusion. Diffuse hepatic steatosis is suggested. Previously reported hepatic dome mass is no longer detected. No hepatic space-occupying mass lesion i s evident. The gallbladder is unremarkable. No bile duct dilatation. Normal splenic size. No pancreatic mass lesion or calcification or ductal dilatation. Normal morphology of the adrenal glands. No renal mass lesion scarring or urinary tract calculus or hydroureteronephrosis. The urinary bladder and prostate gland are unremarkable. There is a suture line of the sigmoid colon consistent with previous sigmoid colon resection. No melissa l obstruction, bowel wall thickening, pneumatosis or intraperitoneal free air. No evidence of appendi citis. Normal caliber of the abdominal aorta. Stable shotty periaortic and aortocaval lymph nodes since 03/20/2022. Stable or slightly decreased size of a lymph node at the anterior aspect of the aortic bifurcation, c urrently measuring approximately 9.6 x 15 mm, compared to 10.8 x 16 mm on 03/20/2022. Calcified lake mass along the right common iliac region measures up to approximately 2.2 x 2.6 x 6.5 cm maximal dimension compared to 2.7 x 3.3 x 8.0 cm on 03/20/2022. Fat-containing right inguinal hernia. Small fat-containing umbilical hernia. No suspicious osteolytic or osteoblastic lesions. Prominent degenerative disc disease at L5-S1. IMPRESSION: Resolution of previously reported hepatic dome mass Interval decreased size of calcified right common iliac lake mass since 03/20/2022 Reviewed, dictated and finalized at Location A. Reviewed, dictated and finalized at location B. 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
== END 2022-06-13 07:55 | disposition home or self-care (01) ==
PROVIDERS: Visit Provider Internal Medicine Hematology & Oncology
DX: C18.7 Malignant neoplasm of sigmoid colon (principal)
CPT/HCPCS: 74177; Q9967

== ENCOUNTER 2022-09-04 09:18 | Outpatient (CLI) | payer MEDICARE, MEDICAID, SELFPAY ==
--- NOTE | ~2022-09-04 | CT_ITS ---
CT Abdomen and Pelvis with contrast. History: Colon cancer. Spiral CT of the abdomen and pelvis was performed after the administration of intravenous contrast. 1 00 cc of Omnipaque 350 was administered intravenously without complication. Dose reduction technique was used on this scan by utilizing automated exposure control and iterative reconstruction technique. The dose-length product (DLP) was 533.69 mGy-cm. COMPARISON: 06/13/2022 Findings: Scans through the lung bases demonstrate mild atelectatic change. The liver, spleen, pancreas, gallbladder, adrenals and kidneys are within normal limits. No evidence of aortic aneurysm. There is a confluent, extensive calcified lake mass along the right common lashonda c chain, with focal increase in soft tissue portion inferiorly (axial images 130-135). There is no evidence of bowel obstruction. Rectosigmoid anastomosis noted. Images through the pelvis were performed. Urinary bladder unremarkable. Prostate gland and seminal vesicles are unremarkable. N o ascites is seen. Impression: Probable focal increase in soft tissue lesion at the inferior aspect of the large calcified lake mas s along the right common iliac chain. This is suspicious for focal progression of disease. Postoperative change, as above. Reviewed, dictated and finalized at location M. [employer] Impression: Probable focal increase in soft tissue lesion at the inferior aspect of the lar ge calcified lake mass along the right common iliac chain. This is suspicious for focal progression of disease. Postoperative change, as above.
== END 2022-09-04 09:19 | disposition home or self-care (01) ==
PROVIDERS: PCP Emergency Medicine; Visit Provider Internal Medicine Hematology & Oncology
DX: C18.7 Malignant neoplasm of sigmoid colon (principal)
CPT/HCPCS: 74177; Q9967

== ENCOUNTER 2023-01-29 09:18 | Outpatient (CLI) | payer MEDICAID, SELFPAY ==
--- NOTE | ~2023-01-29 | CT_ITS ---
CT of the Abdomen and Pelvis: Indication: Colon cancer Technique: 2.5 mm axial scans were obtained through the abdomen and pelvis following intravenous adm inistration of 100 cc of Omnipaque 350. Dose reduction technique was used on this scan by utilizing a utomated exposure control and iterative reconstruction technique. The dose-length product (DLP) was 9 70.80 mGy-cm. COMPARISON: 09/04/2022 Findings: Scans through the lung bases are unremarkable. The liver, spleen, pancreas, gallbladder, adrenals and kidneys are within normal limits. No evidence of aortic aneurysm. No renal mass is present along the right common iliac chain which is mildly incr eased in size, with extensive internal coarse calcifications. This lake mass now measures approximat sangeetha 3.8 x 3.2 x 8.4 cm in extent. Additional smaller, shotty retroperitoneal lymph nodes are also pre sent, similar to prior exam.. No bowel obstruction or bowel wall thickening. Rectosigmoid anastomosis noted. There is no evidence t o suggest acute appendicitis. Images through the pelvis were performed. Urinary bladder unremarkable. Prostate gland and seminal ve sicles are unremarkable. No ascites. Impression: Extensively calcified lake mass along the right common iliac chain is again mildly increased in size , consistent with progression of disease. Lesion now measures up to 3.8 x 3.2 x 8.4 cm in overall ext ent. Stable additional small, shotty retroperitoneal lymph nodes. Reviewed, dictated and finalized at location . Impression: Extensively calcified lake mass along the right common iliac chain is again mi ldly increased in size, consistent with progression of disease. Lesion now rosmery ures up to 3.8 x 3.2 x 8.4 cm in overall extent. Stable additional small, shotty retroperitoneal lymph nodes.
== END 2023-01-29 09:19 | disposition home or self-care (01) ==
LOC: ANHIMG 09:21
PROVIDERS: PCP Emergency Medicine; Visit Provider Internal Medicine Hematology & Oncology
DX: C18.7 Malignant neoplasm of sigmoid colon (principal)
CPT/HCPCS: 74177; Q9967

== ENCOUNTER 2023-03-28 16:49 | Emergency (ER) | payer MEDICAID, SELFPAY ==
--- NOTE | ~2023-03-28 | CT_ITS ---
EXAMINATION: CT abdomen pelvis w con INDICATION: GI bleeding, left lower quadrant pain TECHNIQUE: Computed tomographic images of the abdomen and pelvis were obtained after the administrati on of 100 cc of Omnipaque 350 intravenous contrast. The dose-length product (DLP) was 836.72 mGy-cm. Automated exposure control and iterative reconstruction technique were employed. COMPARISON: 01/29/2023 FINDINGS: The lung bases are clear. The heart size is normal. The liver, spleen, pancreas, gallbladde r, and adrenal glands are normal. The kidneys are unremarkable. A calcified right common iliac chain mass is stable to slightly decreased in size. Mild retroperitoneal lymphadenopathy is also stable sli ghtly improved. No free intraperitoneal gas or evidence of bowel obstruction. A surgical staple line is present in the sigmoid colon. There is diffuse mild circumferential wall thickening of the colon. There is a right inguinal hernia containing fat. There is moderate lumbar spondylosis at L5-S1. IMPRESSION: 1. Findings consistent with pancolitis. 2. Stable to slightly improved right common iliac chain mass and retroperitoneal lymphadenopathy. Reviewed, dictated and finalized at location F. IMPRESSION: 1. Findings consistent with pancolitis. 2. Stable to slightly improved right common iliac chain mass and retroperitonea l lymphadenopathy.
[2023-03-28 16:51] VITALS: BP 111/84; PULSE 96; RESP 16; TEMP 36.8; O2SAT 99
[2023-03-28 21:02] VITALS: BP 112/75; PULSE 95; RESP 16; O2SAT 99
[2023-03-28 21:12] LABS: Estimated CRCL calculation 113 ml/min; Estimated Glomerular Filt Rate > 60
--- NOTE | 2023-03-28 21:23 | ED.GENADULT ---
HPI - General Adult General Chief complaint: GI Bleed Stated complaint: blood in stool Time Seen by Provider: 03/28/23 20:22 History of Present Illness HPI narrative: Patient is a 82-year-old gentleman who presents the emergency department with chief complaint of rectal bleeding. Patient reports that he has history of colon cancer has had a bowel resection and has had chemotherapy. The patient reports that he has had loose stool and reports that he had some bright red blood per rectum today and some dark-colored stool earlier patient reports he is not on blood thinners reports he has little bit of a uncomfortable feeling in the left lower quadrant patient denies fever patient reports that his oncologist told him if he ever had rectal bleeding he should go to the emergency department immediately Related Data Home Medications Medication Instructions Recorded Confirmed cyanocobalamin (vitamin B-12) 1,000 mcg PO DAILY 04/28/19 03/21/23 1,000 mcg capsule ferrous sulfate 324 mg (65 mg 324 mg PO DAILY 04/28/19 03/21/23 iron) tablet,delayed release ondansetron HCl 4 mg tablet 4 mg PO Q8H PRN Nausea 04/28/19 03/21/23 aspirin 81 mg tablet,delayed 81 mg PO DAILY 09/14/19 03/21/23 release (Adult Low Dose Aspirin) potassium chloride 10 mEq 20 meq PO DAILY 04/19/20 03/21/23 tablet,extended release (Klor-Con) pediatric multivitamin no.76 1 tablet PO DAILY 04/21/20 03/21/23 (Flintstones Complete chewable tablet) lidocaine-prilocaine 2.5 %-2.5 % See Rx Instructions .Route .COMPLEX 11/08/21 03/21/23 topical cream Allergies Allergy/AdvReac Type Severity Reaction Status Date / Time No Known Allergies Allergy Verified 03/28/23 16:54 Review of Systems Review of Systems: A 10 system review of systems was completed on the patient and is negative except for what is stated in the HPI. Nursing and ancillary documentation was reviewed. [facility] Past Medical History Medical History Malignant neoplasm of sigmoid colon Social History Social History Smoking status: Never smoker Exam Narrative: GENERAL: Well-appearing, well-nourished, and in no acute distress. HEAD: Normocephalic, atraumatic. EYES: PERRLA and EOMI. ENT: Nares clear, no rhinorrhea or epistaxis. Mucous membranes moist. NECK: Supple. CHEST: Clear to auscultation. No respiratory distress. HEART: Regular rate and rhythm. No murmur heard. Normal peripheral pulses. ABDOMEN: Soft, nontender, nondistended, normal active bowel sounds. : No evidence of large thrombosed hemorrhoid. Small palpable internal hemorrhoid states stool was yellow in color but guaiac positive EXTREMITIES: Normal range of motion. No edema. SKIN: Warm, dry, no rash. NEURO: No focal deficits. Alert and oriented x3. PSYCH: Normal mood and affect. Course Vital Signs Vital signs: Vital Signs Temperature 36.8 C 03/28/23 16:51 Pulse Rate 96 03/28/23 16:51 Respiratory Rate 16 03/28/23 16:51 Blood Pressure 111/84 03/28/23 16:51 Pulse Oximetry 99 03/28/23 16:51 Temperature 36.8 C 03/28/23 16:51 Pulse Rate 95 03/28/23 21:02 Respiratory Rate 16 03/28/23 21:02 Blood Pressure 112/75 03/28/23 21:02 Pulse Oximetry 99 03/28/23 21:02 Medical Decision Making [facility] Narrative Medical decision making narrative: Differential diagnosis includes colitis, neoplasm, diverticulitis, intra-abdominal abscess, GI bleed CT scan showed evidence of pancolitis Laboratory studies were obtained which showed a white blood cell count of 3.0 hemoglobin was 14.9 electrolytes and coags are within normal limits liver enzymes were slightly elevated with an AST of 87 ALT of 125 and alk phos of 133 lipase was 65 Patient was started on Cipro and Flagyl and patient will be referred to GI Patient was instructed to return to the emergency depart
[2023-03-28 21:48] LABS: Basophils Percent Auto 0.7 % (0.2-1.2); Hematocrit 45.2 % (42.0-52.0); Hemoglobin 14.9 g/dL (14.0-18.0); Immature Granulocyte Absolute 0.01 K/mm3 (0.00-0.031); Immature Granulocyte Percent A 0.3 % (0-0.5); Lymphocytes Absolute Auto 1.01 K/mm3 (0.9-3.2); Lymphocytes Percent Auto 33.2 % (18.3-44.2); Mean Corpuscular Hemoglobin 29.6 pg (26-34); Mean Corpuscular Volume 89.7 fl (80-100); Mean Platelet Volume 8.7 fl (7.4-10.4); Monocytes Absolute Auto 0.3 K/mm3 (0.1-0.6); Monocytes Percent Auto 11.2 % (2.6-8.5); Neutrophils Absolute Auto 1.6 K/mm3 (1.3-6.7); Neutrophils Percent Auto 53.6 % (45.5-73.1); Platelet Count Result 345 k/mm3 (150-375); Red Blood Count 5.04 M/mm3 (4.6-6.20); Red Cell Distribution Width 13.6 % (11.5-14.5)
[2023-03-28] MEDS: SODIUM CHLORIDE 0.9% IV 1,000 ML 999 ML IV CONT (21:50)
[2023-03-28 22:03] LABS: Alanine Aminotransferase 125 U/L (6-50); Albumin Level 4.4 g/dL (3.5-5.1); Alkaline Phosphatase 133 U/L (38-126); Anion Gap 10 mmol/L (8-16); Aspartate Amino Transferase 87 U/L (17-59); Bilirubin,Total 0.8 mg/dL (0.2-1.3); Blood Urea Nitrogen 12 mg/dL (9-20); Calcium 9.1 mg/dL (8.4-10.2); Carbon Dioxide 27 mmol/L (22-30); Chloride 100 mmol/L (98-107); Estimated CRCL calculation 113 ml/min; Estimated Glomerular Filt Rate > 60; Glucose 114 mg/dL (65-110); Lipase 65 U/L (23-300); Magnesium 2.2 mg/dL (1.6-2.3); Potassium 3.7 mmol/L (3.4-5.0); Sodium 137 mmol/L (137-145)
[2023-03-28 22:04] LABS: Lactic Acid Reflex 1.5 mmol/L (0.7-2.0); Partial Thromboplastin Time 27.1 SECONDS (22.3-36.8)
[2023-03-28] MEDS: CIPROFLOXACIN 500 MG TAB PO (23:00)
[2023-03-28] MEDS: metroNIDAZOLE 250 MG TABLET 500 MG PO (23:00)
[2023-03-28 23:01] VITALS: BP 115/79; PULSE 84; RESP 16; O2SAT 100
== END 2023-03-28 23:11 | disposition home or self-care (01) ==
PROVIDERS: Emergency Provider Emergency Medicine; PCP Emergency Medicine
DX: K51.00 Ulcerative (chronic) pancolitis without complications (principal); Z92.21 Personal history of antineoplastic chemotherapy; Z90.49 Acquired absence of other specified parts of digestive tract; Z79.82 Long term (current) use of aspirin
CPT/HCPCS: 74177; 80053; 83605; 83690; 83735; 85025; 85610; 85730; 86850; 86900; 86901; 96360; 99284; A9270; J7030; Q9967

== ENCOUNTER 2023-05-09 09:04 | Outpatient (CLI) | payer MEDICAID, SELFPAY ==
--- NOTE | ~2023-05-09 | CT_ITS ---
EXAMINATION: CT chest abdomen pelvis w con DATE: 05/09/2023 09:38 INDICATION: Malignant neoplasm of the sigmoid colon TECHNIQUE: Transaxial computed tomographic images of the chest, abdomen, and pelvis were obtained aft er the administration of 100 cc of Omnipaque 350 intravenous contrast. The dose-length product (DLP) was 984.54 mGy-cm. Automated exposure control and iterative reconstruction technique were employed. COMPARISON: 03/28/2023 FINDINGS: CHEST CT: A right internal jugular Port-A-Cath ends with its tip in the proximal right atrium. There is mild de pendent atelectasis. The lungs are free of focal airspace opacities. Calcified pulmonary nodules and calcified right hilar and mediastinal lymph nodes are consistent with old granulomatous disease. No p leural effusion or pneumothorax. No pathologically enlarged thoracic lymph nodes are identified. The heart size is normal. ABDOMEN/PELVIS CT: The liver, spleen, pancreas, gallbladder, and adrenal glands are normal. The kidneys are unremarkable . A calcified right common iliac chain mass is stable in size. There is also mild stable retroperiton eal lymphadenopathy. There is a stable line sigmoid colon. A moderate volume of colonic stool is pres ent. No free intraperitoneal gas or evidence of bowel obstruction. There is moderate lumbar spondylos is. A right inguinal hernia containing fat is noted. IMPRESSION: 1. Stable retroperitoneal lymphadenopathy, consistent with metastatic disease. 2. No thoracic metastases identified. Reviewed, dictated and finalized at location F.
== END 2023-05-09 09:05 | disposition home or self-care (01) ==
PROVIDERS: PCP Emergency Medicine; Visit Provider Internal Medicine Hematology & Oncology
DX: C18.7 Malignant neoplasm of sigmoid colon (principal); R59.0 Localized enlarged lymph nodes
CPT/HCPCS: 71260; 74177; Q9967

== ENCOUNTER 2023-08-16 10:15 | Emergency (ER) | payer MEDICAID, SELFPAY ==
[2023-08-16] VITALS (15 sets, daily range): BP systolic 92–128; BP diastolic 65–88; PULSE 70–139; RESP 15–23; TEMP 36.2; O2SAT 99–100
--- NOTE | ~2023-08-16 | CT_ITS ---
EXAMINATION: CT abdomen pelvis w con DATE: 08/16/2023 13:03 INDICATION: Sepsis. TECHNIQUE: Computed tomography (CT) of the abdomen and pelvis was performed with 100 mL Omnipaque 350 intravenous contrast. Automated exposure control and iterative reconstruction technique were employe d. The dose-length product was 695.18 mGy-cm. COMPARISON: CT abdomen and pelvis 05/09/2023 FINDINGS: The visualized portions of the lung bases demonstrate mild atelectasis. No pleural effusion . The heart size is normal. No pericardial effusion. The liver and spleen are normal. The gallbladder is distended. The pancreas, adrenal glands, and kidneys are normal. There is a right inguinal hernia containing fat. There is liquid stool in the colon suggesting diarrhea. There is an anastomosis in t he sigmoid colon. There are no dilated loops of bowel. The appendix is normal. There are no pathologi danna enlarged lymph nodes. There is right external iliac and right common iliac lymphadenopathy rosmery uring up to 4.6 x 4.1 cm with calcifications. There is no ascites. There is a catheter tip in the rig ht atrium of the heart. There is moderate lower lumbar spondylosis. IMPRESSION: 1. Stable right common iliac and right external iliac lymphadenopathy, consistent with metastatic dis ease. 2. Gallbladder distention, which may be secondary to fasting. Correlate with physical exam to exclude acute cholecystitis. 3. Liquid stool in the colon suggesting diarrhea. Reviewed, dictated and finalized at location A. AGE CHECKER IMPRESSION: 1. Stable right common iliac and right external iliac lymphadenopathy, consiste nt with metastatic disease. 2. Gallbladder distention, which may be secondary to fasting. Correlate with ph ysical exam to exclude acute cholecystitis. 3. Liquid stool in the colon suggesting diarrhea.
--- NOTE | ~2023-08-16 | XR_ITS ---
EXAMINATION: XR chest 2V DATE: 08/16/2023 13:07 INDICATION: Sepsis. TECHNIQUE: Frontal and lateral views of the chest were obtained. COMPARISON: Chest single view 01/17/2022, CT abdomen and pelvis 08/16/2023 FINDINGS: A calcified right lung nodule is consistent with old granulomatous disease. No pleural effu anna or pneumothorax. The heart size is normal. There is a right internal jugular port with tip at rodriguez perior cavoatrial junction. IMPRESSION: 1. No acute cardiopulmonary disease. Reviewed, dictated and finalized at location A. IFIED [employer] AND DR[employer] COUNSELOR
--- NOTE | ~2023-08-16 | US_ITS ---
EXAMINATION: US abdomen limited DATE: 08/16/2023 15:35 INDICATION: Abnormal liver function tests. TECHNIQUE: Multiple grayscale and Doppler ultrasound images of the abdomen were obtained. COMPARISON: CT abdomen and pelvis 08/16/2023, ultrasound 01/25/2022 FINDINGS: The visualized portions of the head and body of the pancreas are normal. There is diffuse h epatic steatosis. There is normal flow in main portal vein. The gallbladder is distended, likely seco ndary to fasting. No gallstones or gallbladder wall thickening. There is no sonographic Hoang sign. The common duct is normal and measures 4 mm. IMPRESSION: 1. Diffuse hepatic steatosis. Reviewed, dictated and finalized at location A. RVENTIONAL RADIOLOGY RN
--- NOTE | 2023-08-16 11:59 | ECG_ITS ---
Measurements Intervals [place] Rate: 109 P: 69 [place]: 142 QRS: 70 QRSD: 91 T: 56 QT: 330 QTc: 445 Interpretive Statements SINUS TACHYCARDIA POSSIBLE LEFT ATRIAL ENLARGEMENT [-0.1mV P WAVE IN V1/V2] NONSPECIFIC ST SEGMENT ABNORMALITY ABNORMAL RHYTHM ECG NO PREVIOUS ECG AVAILABLE FOR COMPARISON Electronically Signed On 08-16-2023 13:59:09 PROFESSOR OF MANAGEMENT by Padilla Bowling M.D.
--- NOTE | 2023-08-16 12:11 | ED.NAVMDI ---
HPI - Nausea/Vomiting/Diarrhea General Chief complaint: Nausea/Vomiting/Diarrhea Stated complaint: chemo patient, N/V Time Seen by Provider: 08/16/23 11:59 History of Present Illness HPI Narrative: Patient is a 52 year old male with history of colon CA, s/p resection by Dr. Lawler, currently on chemotherapy coordinated by his oncologist Dr. Arita here with multiple symptoms including diarrhea, nausea, light headedness, dizziness, decreased PO intake and generalized fatigue since Saturday. His last chemo infusion was on 08/08, does not believe he is on any new agents. He typically will get some similar symptoms after his chemo infusions including nausea, vomiting, diarrhea however this is much worse than it usually is and it kept him home from work. His notes he has hardly gotten out of bed for the last 5 days and has hardly eaten. He notes one episode of vomiting 2 days ago, has had continued nausea. He notes some associated abdominal pain which is diffuse and mild. No dysuria, fever, chills. No bright red blood per rectum. No known sick contacts. Related Data Home Medications Medication Instructions Recorded Confirmed cyanocobalamin (vitamin B-12) 1,000 mcg PO DAILY 04/28/19 08/08/23 1,000 mcg capsule ferrous sulfate 324 mg (65 mg 324 mg PO DAILY 04/28/19 08/08/23 iron) tablet,delayed release ondansetron HCl 4 mg tablet 4 mg PO Q8H PRN Nausea 04/28/19 08/08/23 aspirin 81 mg tablet,delayed 81 mg PO DAILY 09/14/19 08/08/23 release (Adult Low Dose Aspirin) potassium chloride 10 mEq 20 meq PO DAILY 04/19/20 08/08/23 tablet,extended release (Klor-Con) pediatric multivitamin no.76 1 tablet PO DAILY 04/21/20 08/08/23 (Flintstones Complete chewable tablet) lidocaine-prilocaine 2.5 %-2.5 % See Rx Instructions .Route .COMPLEX 11/08/21 08/08/23 topical cream Allergies Allergy/AdvReac Type Severity Reaction Status Date / Time No Known Allergies Allergy Verified 08/08/23 10:37 Review of Systems Review of Systems: All systems reviewed & are unremarkable except as noted in HPI and below PMFSH Past Medical History Medical History Malignant neoplasm of sigmoid colon Social History Social History Smoking status: Never smoker Exam Narrative: GENERAL: Well-appearing, well-nourished, and in no acute distress. HEAD: Normocephalic, atraumatic. EYES: PERRLA and EOMI. ENT: Nares clear. Mucous membranes moist. NECK: Supple. CHEST: Clear to auscultation. No respiratory distress. HEART: Regular rate and rhythm. Normal peripheral pulses. ABDOMEN: Soft, nontender, nondistended. EXTREMITIES: Normal range of motion. No edema. SKIN: Warm, dry, no rash. NEURO: No focal deficits. Alert and oriented x3. PSYCH: Normal mood and affect. Course Course Emergency Course: Chart review performed. Patient has history of colon cancer, last chemo 8 days ago, here with dizziness and feeling ill with nausea, vomiting, diarrhea since Saturday. Triage vitals show hypotension, tachycardia, normal O2 saturation. Unable to view oncology notes, it appears that he was in the ED last in March 2023 for GI bleed. He was diagnosed with pancolitis and discharged home on marylin chino. Patient seen and evaluated, non toxic appearing. Improving HR on my evaluation to the low 100s, IVF infusing. Septic workup ordered, IVF, CT abdomen pelvis. He note he was scheduled to get an outpatient CT abdomen pelvis yesterday but missed it due to feeling ill. No cardiac history, will do full 30 cc/kg IVF bolus. Initially a 1L bolus ordered, will do additional 1500 cc. Lab work reviewed, WBC 2.2, Hgb 15.5, anticipate level of dehydration. Renal function stable. Potassium 3.1, will replete. Lactic normal at 1.6. AST, ALT mildly elevated. CRP negative. Awaiting CT. CT shows stable R iliac lymphadenopathy, gall bladder distention, li
[2023-08-16] MEDS: LACTATED RINGERS 1,000 ML 999 ML IV CONT ×2 (12:13→13:25)
[2023-08-16 12:34] LABS: Basophils Percent Auto 0.9 % (0.2-1.2); Eosinophils Percent Auto 0.9 % (0-4.4); Hematocrit 49.3 % (42.0-52.0); Hemoglobin 15.5 g/dL (14.0-18.0); Lymphocytes Absolute Auto 0.97 K/mm3 (0.9-3.2); Lymphocytes Percent Auto 43.9 % (18.3-44.2); Mean Corpuscular HGB Conc 31.4 g/dl (32-36); Mean Corpuscular Hemoglobin 26.4 pg (26-34); Mean Platelet Volume 9.1 fl (7.4-10.4); Monocytes Absolute Auto 0.3 K/mm3 (0.1-0.6); Monocytes Percent Auto 12.7 % (2.6-8.5); Neutrophils Absolute Auto 0.9 K/mm3 (1.3-6.7); Neutrophils Percent Auto 41.6 % (45.5-73.1); Platelet Count Result 415 k/mm3 (150-375); Red Blood Count 5.87 M/mm3 (4.6-6.20); Red Cell Distribution Width 14.7 % (11.5-14.5); White Blood Count 2.2 K/mm3 (4.5-10.0)
[2023-08-16 12:45] LABS: Lactic Acid Reflex 1.6 mmol/L (0.7-2.0)
[2023-08-16 12:47] LABS: Alanine Aminotransferase 165 U/L (6-50); Albumin Level 4.5 g/dL (3.5-5.1); Alkaline Phosphatase 195 U/L (38-126); Anion Gap 17 mmol/L (8-16); Aspartate Amino Transferase 103 U/L (17-59); Bilirubin,Total 1.3 mg/dL (0.2-1.3); Blood Urea Nitrogen 14 mg/dL (9-20); CRP < 0.5 mg/dL (<1.0); Calcium 9.7 mg/dL (8.4-10.2); Carbon Dioxide 20 mmol/L (22-30); Chloride 101 mmol/L (98-107); Estimated CRCL calculation 90 ml/min; Estimated Glomerular Filt Rate > 60; Glucose 112 mg/dL (65-110); Potassium 3.1 mmol/L (3.4-5.0); Sodium 138 mmol/L (137-145)
[2023-08-16 12:48] LABS: INR 1.1; Prothrombin Time 14.5 Seconds (11.1-14.7)
[2023-08-16 12:49] LABS: Partial Thromboplastin Time 27.9 SECONDS (22.3-36.8)
[2023-08-16 13:10] LABS: Influenza A QL RT-PCR Negative (Negative); Influenza B QL RT-PCR Negative (Negative); RSV RNA, RT-PCR Negative (Negative); SARS-CoV-2 RNA PCR Negative (Negative)
[2023-08-16] MEDS: SODIUM CHLORIDE 0.9% IV 500 ML 999 ML IV CONT (13:25)
[2023-08-16 13:44] LABS: Troponin I < 0.012 ng/mL (0.000-0.034)
[2023-08-16 14:16] LABS: Lipase 61 U/L (23-300)
--- NOTE | 2023-08-16 15:32 | PC.NURSE ---
Pt asked again to provide urine sample.
[2023-08-16 15:57] LABS: Appearance Urine Clear (Clear); Bilirubin Urine Negative (Negative); Blood Urine Negative (Negative); Color Urine Yellow (Yellow); Glucose Urine UA Negative (Negative); Ketones Urine 3+ mg/dL (Negative); Leukocyte Esterase Ur Negative LEU/UL (Negative); Nitrate Urine Negative (Negative); Protein Urine Negative (Negative); Urobilinogen Urine 0.2 mg/dL (<2.0); pH Urine 5.5 (5.0-9.0)
[2023-08-16 16:00] LABS: Specific Grav Ur 1.063 (1.001-1.035)
[2023-08-16 16:01] LABS: Add Urine Microscopic? NO
[2023-08-16] MEDS: POTASSIUM BICARBONATE 25 MEQ TABEF 50 MEQ PO (16:36)
== END 2023-08-16 17:08 | disposition home or self-care (01) ==
PROVIDERS: Emergency Provider Student in an Organized Health Care Education/Training Program; PCP Emergency Medicine
DX: R19.7 Diarrhea, unspecified (principal); R11.2 Nausea with vomiting, unspecified; R53.1 Weakness; C18.9 Malignant neoplasm of colon, unspecified; Z79.60 Long term (current) use of unspecified immunomodulators and immunosuppressants; Z79.82 Long term (current) use of aspirin; R00.0 Tachycardia, unspecified; R94.31 Abnormal electrocardiogram [ECG] [EKG]; K76.0 Fatty (change of) liver, not elsewhere classified
CPT/HCPCS: 36415; 71046; 74177; 76705; 80053; 81003; 83605; 83690; 84484; 85025; 85610; 85730; 86140; 87040; 87637; 93005; 96360; 96361; 99284; A9270; J7040; J7120; Q9967

== ENCOUNTER 2023-08-18 19:11 | Emergency (ER) | payer MEDICAID, SELFPAY ==
[2023-08-18 19:16] VITALS: BP 99/69; PULSE 123; RESP 16; TEMP 36.6; O2SAT 99
[2023-08-19 01:31] VITALS: BP 106/75; PULSE 83; O2SAT 100
[2023-08-19 01:33] VITALS: BP 99/72; PULSE 84; RESP 16; O2SAT 100
[2023-08-19 01:39] LABS: Eosinophils Absolute Auto 0.1 K/mm3 (0-0.3); Eosinophils Percent Auto 1.3 % (0-4.4); Hematocrit 43.4 % (42.0-52.0); Hemoglobin 13.6 g/dL (14.0-18.0); Immature Granulocyte Absolute 0.01 K/mm3 (0.00-0.031); Immature Granulocyte Percent A 0.3 % (0-0.5); Lymphocytes Percent Auto 33.6 % (18.3-44.2); Mean Corpuscular HGB Conc 31.3 g/dl (32-36); Mean Corpuscular Hemoglobin 26.9 pg (26-34); Mean Corpuscular Volume 85.8 fl (80-100); Mean Platelet Volume 9.3 fl (7.4-10.4); Monocytes Absolute Auto 0.3 K/mm3 (0.1-0.6); Monocytes Percent Auto 7.2 % (2.6-8.5); Neutrophils Absolute Auto 2.2 K/mm3 (1.3-6.7); Neutrophils Percent Auto 56.6 % (45.5-73.1); Platelet Count Result 359 k/mm3 (150-375); Red Blood Count 5.06 M/mm3 (4.6-6.20); Red Cell Distribution Width 15.4 % (11.5-14.5); White Blood Count 3.9 K/mm3 (4.5-10.0)
[2023-08-19] MEDS: SODIUM CHLORIDE 0.9% IV 1,000 ML 999 ML IV CONT (01:43)
[2023-08-19 01:46] VITALS: BP 106/76; PULSE 77; RESP 17; O2SAT 100
[2023-08-19 01:49] LABS: Alanine Aminotransferase 83 U/L (6-50); Albumin Level 4.3 g/dL (3.5-5.1); Alkaline Phosphatase 154 U/L (38-126); Anion Gap 9 mmol/L (8-16); Aspartate Amino Transferase 35 U/L (17-59); Bilirubin,Total 0.5 mg/dL (0.2-1.3); Blood Urea Nitrogen 11 mg/dL (9-20); Calcium 9.2 mg/dL (8.4-10.2); Carbon Dioxide 25 mmol/L (22-30); Chloride 106 mmol/L (98-107); Estimated CRCL calculation 100 ml/min; Estimated Glomerular Filt Rate > 60; Glucose 107 mg/dL (65-110); Sodium 140 mmol/L (137-145)
[2023-08-19 02:06] LABS: Procalcitonin 0.1 ng/mL
--- NOTE | 2023-08-19 02:23 | ED.GENADULT ---
HPI - General Adult General Chief complaint: Recheck/Abnormal Lab/Rx Stated complaint: abdnormal labs Time Seen by Provider: 08/19/23 00:34 History of Present Illness HPI narrative: Is a 52-year-old gentleman who presents emergency department with chief complaint of positive blood culture. The patient reports that he was seen in the emergency department on Saturday and was having some generalized malaise and nausea patient did that time had blood work including a set of blood cultures 1 of the 2 bottles came back positive for Staphylococcus capitis and the patient was called by his primary care provider and told to come to the emergency department for re-evaluation. Related Data Home Medications Medication Instructions Recorded Confirmed cyanocobalamin (vitamin B-12) 1,000 mcg PO DAILY 04/28/19 08/08/23 1,000 mcg capsule ferrous sulfate 324 mg (65 mg 324 mg PO DAILY 04/28/19 08/08/23 iron) tablet,delayed release ondansetron HCl 4 mg tablet 4 mg PO Q8H PRN Nausea 04/28/19 08/08/23 aspirin 81 mg tablet,delayed 81 mg PO DAILY 09/14/19 08/08/23 release (Adult Low Dose Aspirin) potassium chloride 10 mEq 20 meq PO DAILY 04/19/20 08/08/23 tablet,extended release (Klor-Con) pediatric multivitamin no.76 1 tablet PO DAILY 04/21/20 08/08/23 (Flintstones Complete chewable tablet) lidocaine-prilocaine 2.5 %-2.5 % See Rx Instructions .Route .COMPLEX 11/08/21 08/08/23 topical cream Allergies Allergy/AdvReac Type Severity Reaction Status Date / Time No Known Allergies Allergy Verified 08/18/23 19:12 Review of Systems Review of Systems: A 10 system review of systems was completed on the patient and is negative except for what is stated in the HPI. Nursing and ancillary documentation was reviewed. PMFSH Past Medical History Medical History Malignant neoplasm of sigmoid colon Social History Social History Smoking status: Never smoker Exam Narrative: GENERAL: Well-appearing, well-nourished, and in no acute distress. HEAD: Normocephalic, atraumatic. EYES: PERRLA and EOMI. ENT: Nares clear, no rhinorrhea or epistaxis. Mucous membranes moist. NECK: Supple. CHEST: Clear to auscultation. No respiratory distress. HEART: Regular rate and rhythm. No murmur heard. Normal peripheral pulses. ABDOMEN: Soft, nontender, nondistended, normal active bowel sounds. EXTREMITIES: Normal range of motion. No edema. SKIN: Warm, dry, no rash. NEURO: No focal deficits. Alert and oriented x3. PSYCH: Normal mood and affect. Course Vital Signs Vital signs: Vital Signs Temperature 36.6 C 08/18/23 19:16 Pulse Rate 123 H 08/18/23 19:16 Respiratory Rate 16 08/18/23 19:16 Blood Pressure 99/69 L 08/18/23 19:16 Pulse Oximetry 99 08/18/23 19:16 Oxygen Delivery Room Air 08/18/23 19:16 Temperature 36.6 C 08/18/23 19:16 Pulse Rate 77 08/19/23 01:46 Respiratory Rate 17 08/19/23 01:46 Blood Pressure 106/76 08/19/23 01:46 Pulse Oximetry 100 08/19/23 01:46 Oxygen Delivery Room Air 08/18/23 19:16 Medical Decision Making MDM Narrative Medical decision making narrative: Differential diagnosis includes bacteremia, false positive blood culture due to skin contaminant, electrolyte abnormality, sepsis Patient is currently not tachycardic or hypotensive. The patient is afebrile the patient has no symptoms currently consistent with bacterial infection Patient is awake alert in no acute distress laboratory studies were repeated on the patient in the emergency department which showed a white count of 3.9 differential did not show a abnormal differential electrolytes are within normal limits with the exception of potassium being 3.0 liver enzymes are slightly elevated but improved from previous visit procalcitonin is 0.1 lactic acid is 1.0 The in review of the sally
[2023-08-19 04:09] LABS: Appearance Urine Cloudy (Clear); Bacteria Urine None Seen /hpf; Bilirubin Urine Negative (Negative); Blood Urine Negative (Negative); Color Urine Dark Yellow (Yellow); Glucose Urine UA Negative (Negative); Ketones Urine 1+ mg/dL (Negative); Leukocyte Esterase Ur Negative LEU/UL (Negative); Need Manual Microscopic Reviewed; Nitrate Urine Negative (Negative); Protein Urine 1+ mg/dL (Negative); RBC Urine 0-2 /hpf (0-2); Squamous Epithelial Cell Urine Occasional /hpf (Few); Urobilinogen Urine 0.2 mg/dL (<2.0); WBC Urine 0-5 /hpf
[2023-08-19 04:11] LABS: Add Urine Microscopic? NO
[2023-08-19 04:25] VITALS: BP 101/71; PULSE 88; RESP 16; O2SAT 100
== END 2023-08-19 04:25 | disposition home or self-care (01) ==
PROVIDERS: Emergency Provider Emergency Medicine; PCP Emergency Medicine
DX: R89.5 Abnormal microbiological findings in specimens from other organs, systems and tissues (principal)
CPT/HCPCS: 36415; 80053; 81003; 83605; 84145; 85025; 87040; 96360; 96361; 99283; J7030

== ENCOUNTER 2023-09-15 17:51 | Emergency (ER) | payer MEDICAID, SELFPAY ==
[2023-09-15 17:52] VITALS: BP 88/61; PULSE 110; RESP 16; TEMP 36.9; O2SAT 98
--- NOTE | 2023-09-15 18:21 | ED.GENADULT ---
HPI - General Adult General Chief complaint: Skin/Abscess/Foreign Body Stated complaint: groin irriatation Time Seen by Provider: 09/15/23 18:09 Source: patient Mode of arrival: ambulatory Limitations: no limitations History of Present Illness HPI narrative: This is a 53-year-old male with PMH of malignant colon cancer who presents to the ED with chief complaint of groin rash for the past several days. Reports that he is on doxycycline for a skin rash prescribed by his cancer doctor. He has been taking doxycycline regularly. He reports this groin rashes happened in the past while taking doxycycline, however today it seems to be more irritating and burning than usual. Denies troubles with urination, abdominal pain, nausea, vomiting, fevers. Related Data Home Medications Medication Instructions Recorded Confirmed cyanocobalamin (vitamin B-12) 1,000 mcg PO DAILY 04/28/19 09/05/23 1,000 mcg capsule ferrous sulfate 324 mg (65 mg 324 mg PO DAILY 04/28/19 09/05/23 iron) tablet,delayed release ondansetron HCl 4 mg tablet 4 mg PO Q8H PRN Nausea 04/28/19 09/05/23 aspirin 81 mg tablet,delayed 81 mg PO DAILY 09/14/19 09/05/23 release (Adult Low Dose Aspirin) potassium chloride 10 mEq 20 meq PO DAILY 04/19/20 09/05/23 tablet,extended release (Klor-Con) pediatric multivitamin no.76 1 tablet PO DAILY 04/21/20 09/05/23 (Flintstones Complete chewable tablet) lidocaine-prilocaine 2.5 %-2.5 % See Rx Instructions .Route .COMPLEX 11/08/21 09/05/23 topical cream Allergies Allergy/AdvReac Type Severity Reaction Status Date / Time No Known Allergies Allergy Verified 09/15/23 18:10 Review of Systems Review of Systems: All systems as dictated in HPI PMFSH Past Medical History Medical History Malignant neoplasm of sigmoid colon Social History Social History Smoking status: Never smoker Exam Narrative: GENERAL: Well-appearing, well-nourished, and in no acute distress. HEAD: Normocephalic, atraumatic. EYES: PERRLA and EOMI. ENT: Nares clear, no rhinorrhea or epistaxis. Mucous membranes moist. Oropharynx without tonsillar hypertrophy exudate or other lesions. NECK: Supple. No adenopathy or masses. CHEST: No respiratory distress. Clear to auscultation. No wheezes rales or rhonchi HEART: Regular rate and rhythm. No murmur heard. Normal peripheral pulses. ABDOMEN: Soft, nontender, nondistended, normal active bowel sounds. MSK: Normal range of motion. No edema. No tenderness to medial thighs. SKIN: Erythematous rash to bilateral groin with satellite lesions present. NEURO: Alert and oriented x3. No focal deficits. PSYCH: Normal mood and affect. : Beefy red rash to the bilaterally and at the testicle. No penile lesions. No penile discharge. The area is tender to touch. No induration or abscess palpated. Course Vital Signs Vital signs: Vital Signs Temperature 98.4 F 09/15/23 17:52 Pulse Rate 110 H 09/15/23 17:52 Respiratory Rate 16 09/15/23 17:52 Blood Pressure 88/61 L 09/15/23 17:52 Pulse Oximetry 98 09/15/23 17:52 Oxygen Delivery Room Air 09/15/23 17:52 Temperature 97.8 F 09/15/23 19:32 Pulse Rate 99 09/15/23 19:32 Respiratory Rate 17 09/15/23 19:32 Blood Pressure 101/66 09/15/23 19:32 Pulse Oximetry 100 09/15/23 19:32 Oxygen Delivery Room Air 09/15/23 17:52 Medical Decision Making [facility] Narrative Medical decision making narrative: This is a 53-year-old male who presents to the ED with chief complaint of groin rash for the past couple of days. He has recent prescription of doxycycline. Vitals are noted normal. Exam shows beefy red erythematous rash to the bilateral groin. The area is quite moist. There are satellite lesions. Exam is consistent with candidiasis of the skin, especially in the setting of antibiotic co
[2023-09-15 18:29] VITALS: BP 96/68; PULSE 97; RESP 15; O2SAT 98
[2023-09-15] MEDS: TOLNAFTATE 1% POWDER 45 GM BTL 1 APPLIC TOPICAL (19:31)
[2023-09-15 19:32] VITALS: BP 101/66; PULSE 99; RESP 17; TEMP 36.6; O2SAT 100
== END 2023-09-15 19:35 | disposition home or self-care (01) ==
PROVIDERS: Emergency Provider Physician Assistant; PCP Emergency Medicine
DX: B37.2 Candidiasis of skin and nail (principal); T36.4X5A Adverse effect of tetracyclines, initial encounter; C18.9 Malignant neoplasm of colon, unspecified; Z79.82 Long term (current) use of aspirin; Z79.60 Long term (current) use of unspecified immunomodulators and immunosuppressants
CPT/HCPCS: 99283; A9270

== ENCOUNTER 2024-08-18 09:11 | Emergency (ER) | payer MEDICAID, SELFPAY ==
--- NOTE | ~2024-08-18 | CT_ITS ---
EXAMINATION: CT abd pelvis lumbar w con DATE: 08/18/2024 13:19 INDICATION: Abdominal pain. TECHNIQUE: Computed tomography (CT) of the abdominal and pelvis and lumbar spine was performed with 1 00 mL Omnipaque 350 intravenous contrast. Automated exposure control and iterative reconstruction cody hnique were employed. The dose-length product was 912.77 mGy-cm. COMPARISON: CT abdomen and pelvis 08/16/2023 FINDINGS: CT ABDOMEN AND PELVIS: The visualized portions of lung bases demonstrate mild dependent atelectasis. No pleural effusion. The heart size is normal. No pericardial effusion. The liver, gallbladder, splee n, pancreas, adrenal glands, and left kidney are normal. There is a delayed right-sided contrast neph rogram. There is moderate right hydronephrosis and hydroureter. There is a right inguinal hernia cont aining fat. There is a staple line in the rectosigmoid. There are no dilated loops of bowel. The appe ndix is normal. There is aortocaval, left para-aortic, right common iliac, and right external iliac l ymphadenopathy. For example, an aortocaval lake mass measures 6.5 x 5.2 cm, increased from 5.0 x 4.1 cm on 08/16/2023. For another example, a 3.0 x 2.2 cm left para-aortic node is newly enlarged. There i s no ascites. CT LUMBAR SPINE: There is 3 degrees levocurvature of lumbar spine. There is mild chronic anterior wed ging of T12 and L1 vertebral bodies. There is severely decreased disc height at L5-S1. Osseous centra l spinal canal is developmentally small. The following disc levels are specifically discussed: L1-L2: The disc is bulging. There is mild bilateral facet joint osteoarthritis. There is mild bilater al neural foraminal stenosis. There is mild central canal stenosis. L2-L3: The disc is bulging. There is mild bilateral facet joint osteoarthritis. There is mild bilater al neural foraminal stenosis. There is mild central canal stenosis. L3-L4: The disc is bulging. There is severe right and mild left facet joint osteoarthritis. There is mild bilateral neural foraminal stenosis. There is mild central canal stenosis. L4-L5: The disc is bulging. There is mild right facet joint osteoarthritis. There is mild bilateral n eural foraminal stenosis. There is mild central canal stenosis. L5-S1: The disc is bulging. There is severe right and moderate left facet joint osteoarthritis. There is moderate right and mild left neural foraminal stenosis. There is mild central canal stenosis. IMPRESSION: 1. Worsened retroperitoneal and pelvic lymphadenopathy, consistent with metastatic disease. 2. New moderate right hydronephrosis and hydroureter secondary to the retroperitoneal lymphadenopathy . 3. Right inguinal hernia containing fat. Reviewed, dictated and finalized at location A. [facility]IST IMMUNOLOGIST IMPRESSION: 1. Worsened retroperitoneal and pelvic lymphadenopathy, consistent with metasta tic disease. 2. New moderate right hydronephrosis and hydroureter secondary to the retroperi toneal lymphadenopathy. 3. Right inguinal hernia containing fat.
[2024-08-18 09:17] VITALS: BP 124/80; PULSE 110; RESP 16; TEMP 36.6; O2SAT 100
--- NOTE | 2024-08-18 09:47 | ECG_ITS ---
Test Date: 2024-08-18 12:26:47 Measurements Intervals [place] Rate: 94 P: 57 DE: 149 QRS: 32 QRSD: 90 T: 50 QT: 312 QTc: 390 Interpretive Statements SINUS RHYTHM BASELINE ARTIFACT- I, II, III, AVR, AVL, AVF, V1-V2 NORMAL ECG No previous ECG available for comparison Electronically Signed On 08-18-2024 12:40:44 MATH TUTOR by Adebayo Francisco D.O.
--- OUTSIDE RECORDS SUMMARY | 2024-08-18 09:48 | XMS_ITS | Patient Health Summary ---
Author Organization [facility] Address [address] [place] [address] Care Team Providers Care Clearance Diver Name Role Phone Denis Fan MD Primary Care Provider [phone] [facility],non-owned Affiliates and Associated Physician Practices is amultiple site organization consisting of ambulatory clinics and hospital sitesin [place], [place], [place] and [place]. This disclosure is being madepursuant to the Care Everywhere program and may not contain all information available regarding this patient. Last updated 18.[facility] Allergies No known active allergies Medications * Be aware that medications may not be up to date on this document. Alwaysverify current medications with the patient. * cyanocobalamin 100 MCG tablet Take 100 mcg by mouth once daily * doxycycline monohydrate 100 MG capsule(Started 01/27/2022) Take 1 capsule by mouth every 12 hours * lidocaine-prilocaine (Emla) 2.5-2.5 % cream(Started 04/25/2021) Apply to port site 30 minutes before use * Multiple Vitamin (Daily Vites) TABS Take 1 tablet by mouth once daily * nirmatrelvir-ritonavir renal (Paxlovid)(Started 01/19/2022) USE DIRECTED * ondansetron (Zofran) 4 MG tablet(Started 01/05/2022) Take 4 mg by mouth every 8 hours as needed for nausea and vomiting. * potassium chloride ER (Klor-Con) 10 MEQ tablet(Started 01/27/2022) TAKE 2 TABLETS BY MOUTH ONCE DAILY WITH BREAKFAST * LOW-DOSE ASPIRIN PO Take 81 mg by mouth * ferrous sulfate 325 (65 FE) MG tablet Take 325 mg by mouth once daily Social History Tobacco Use Types Packs/Day Years Used Date Smoking Tobacco: Former Cigarettes Smokeless Tobacco: Never Alcohol Use Standard Drinks/Week Comments Not Currently 0 (1 standard drink = 0.6 oz pur e alcohol) Sex and Gender Information Value Date Recorded Sex Assigned at Not on file Gender Identity Not on file Sexual Orientation Not on file Last Filed Vital Signs Vital Sign Reading Time Taken Comments Blood Pressure 105/71 04/02/2022 11:26 AM CDT Pulse 91 04/02/2022 11:26 AM CDT Temperature 36.2 ??C (97.2 ??F) 04/02/2022 11:26 AM C DT Respiratory Rate - - Oxygen Saturation 99% 04/02/2022 11:26 AM CDT Inhaled Oxygen Concentration - - Weight 94.3 kg (208 lb) 04/02/2022 11:26 AM CDT Height 180.3 cm (5' 11 ) 04/02/2022 11:26 AM CDT Body Mass Index 29.01 04/02/2022 11:26 AM CDT Procedures * URINALYSIS AUTO - POINT OF CARE (AMB) [facility](Performed 04/02/2022) Performed for Hematuria, unspecified type * CT UROGRAM(Performed 03/28/2022) Performed for Hematuria, unspecified type * CREATININE - POCT INTERFACED(Performed 03/28/2022) * URINALYSIS W/MICROSCOPIC NO CULTURE(Performed 02/27/2022) Performed for Hematuria, unspecified type * PSA FREE + TOTAL PANEL(Performed 02/27/2022) Performed for Hematuria, unspecified type * IN MSR PVR U&/BLADD CAPCTY US NON(Performed 02/27/2022) Performed for Hematuria, unspecified type * URINALYSIS AUTO - POINT OF CARE (AMB) [facility](Performed 02/27/2022) Performed for Hematuria, unspecified type Results * URINALYSIS AUTO - POINT OF CARE (AMB) [facility] (04/02/2022) Only the most recent of2 resultswithin the time period is included. Glucose UA neg Bilirubin UA POCT neg Ketones UA POCT neg Specific [place] UA 1.015 Blood Urine POCT + pH UA 6.0 Protein UA neg Urobilinogen UA neg Nitrite UA neg WBC UA neg Urine URINE / Unknown 04/02/2022 Bette Silva CALL CENTER MANAGER-UTILIZATION REVIEW SPECIALIST LAB - POINT O F CARE ORDERABLES * CT UROGRAM (03/28/2022 10:26 AM CDT) Anatomical Region Laterality Modality Abdomen, Pelvis Computed Tomogra phy 03/28/2022 10:1 4 AM CDT Impressions 03/28/2022 11:55 AM CDT IMPRESSION: 1. Unremarkable CT examination of the kidneys, ureters and urinary bladder. Note made of right ureter courses along the anterior surface of the right common iliac lymph node mass. 2. Small hypodense lesion in segment 4A of the liver, possibly residual changes of previously treated hepatic segment 4A lesion. No suggestion of any other hepatic lesions. Mild fatty changes noted. 3. Several abnormally enlarged retroperitoneal lymph nodes. Largest lymph node show calcification and is in the right parahilar iliac measures approximately 2.3 cm in the transverse plane; however, 7.5 cm craniocaudally (likely conglomerate lymph node mass). In addition there are a few more lymph nodes noted in the adjacent retroperitoneum, one of them shows spiculated outline and small speckled calcification. A mucin secreting adenocarcinoma metastasis can appear as speckled calcified lymph nodes (however, the nodes are not along the expected draining site for the sigmoid). Granulomatous diseases are the other differential diagnosis. Correlate these findings with clinical data and previous imaging studies. I, Sanchez Squires MD have personally reviewed and interpreted this examination/study. > Interpreting Provider: Sanchez Squires MD on 03/28/2022 11:55 AM Narrative 03/28/2022 11:55 AM CDT PROCEDURE: ??CT UROGRAM, DATE/TIME OF EXAM: ??03/28/2022 10:26 AM, LOCATION [facility] INDICATION: R31.9: Hematuria, unspecified type ADDITIONAL CLINICAL INFORMATION: Ordering Provider Reason For Exam: ??Microscopic hematuria, hx of colon ca History: 51-year-old male patient with history of sigmoid cancer, status post sigmoid colectomy February 2019 with positive lymph nodes. Patient had solitary hepatic metastasis in segment 4A, status post Y90 mapping on 11/22/2021. COMPARISON: No prior imaging exist in the medical record at the time of this dictation. However, correlation with prior reports in care everywhere tab of [facility] was performed including MRI of the abdomen from 11/03/2021. TECHNIQUE: CT of the abdomen and pelvis was performed utilizing standard protocol. CT dose reduction technique was used, including Automated Exposure Control. IV CONTRAST: IOPAMIDOL 76 % IV SOLN:100 mL FINDINGS: Lower Chest: No suspicious pulmonary nodule. Liver: There is a 10 mm hypodense lesion in hepatic segment 4A (image 46, series 6), likely the site of previous treatment. There is no focal lesions. Mild diffuse fatty changes noted in the liver parenchyma. Gallbladder and Bile Ducts: Gallbladder is present. No intra or extra hepatic bile duct dilatation. Spleen: Normal. Pancreas: Normal. ?? Adrenals: Normal Kidneys: The collecting system is nondilated. No abnormally enhancing lesion along the calices or ureters of both kidneys. Gastrointestinal: Colocolonic anastomosis noted in the pelvis. The no suspicious finding at the anastomosis site. Mesentery/Peritoneum/Retroperitoneum: There are several enlarged retroperitoneal lymph nodes in the right common iliac, preaortic, aortocaval, para-aortic regions. For example large right common iliac calcified lymph node measuring 23 mm (image 143, series 4) and it measures 7.5 cm craniocaudally, likely conglomerated lymph node. Right ureter is courses anterior to the lake mass. An additional, rounded, 8 mm lymph node in the aortocaval region (image 119, series 4), it shows spiculated outline and minimal speckled calcification. Bladder: No suspicious finding. Pelvis: Fat-containing left-sided inguinal hernia. Prostate measuring 4 cm in transverse dimension. Vasculature: Normal. Bones: No suspicious bone lesion. Straightening of the lumbar curvature. Soft tissues: Normal. Procedure Note Sanchez Squires MD - 03/28/2022 PROCEDURE: CT UROGRAM, DATE/TIME OF EXAM: 03/28/2022 10:26 AM, LOCATION [facility] INDICATION: R31.9: Hematuria, unspecified type ADDITIONAL CLINICAL INFORMATION: Ordering Provider Reason For Exam: Microscopic hematuria, hx of colonca History: 51-year-old male patient with history of sigmoid cancer, status post sigmoid colectomy February 2019 with positive lymph nodes. Patient had solitary hepatic metastasis in segment 4A, status post Y90 mapping on 11/22/2021. COMPARISON: No prior imaging exist in the medical record at the time of thisdictation. However, correlation with prior reports in care everywhere tab of Epicwas performed including MRI of the abdomen from 11/03/2021. TECHNIQUE: CT of the abdomen and pelvis was performed utilizing standard protocol. CT dose reduction technique was used, including Automated ExposureControl. IV CONTRAST: IOPAMIDOL 76 % IV SOLN:100 mL FINDINGS: Lower Chest: No suspicious pulmonary nodule. Liver: There is a 10 mm hypodense lesion in hepatic segment 4A (image 46,series 6), likely the site of previous treatment. There is no focal lesions.Mild diffuse fatty changes noted in the liver parenchyma. Gallbladder and Bile Ducts: Gallbladder is present. No intra or extra hepatic bile duct dilatation. Spleen: Normal. Pancreas: Normal. Adrenals: Normal Kidneys: The collecting system is nondilated. No abnormally enhancing lesionalong the calices or ureters of both kidneys. Gastrointestinal: Colocolonic anastomosis noted in the pelvis. The no suspicious findingat the anastomosis site. Mesentery/Peritoneum/Retroperitoneum: There are several enlarged retroperitoneal lymph nodes in the rightcommon iliac, preaortic, aortocaval, para-aortic regions. For example largeright common iliac calcified lymph node measuring 23 mm (image 143, series 4)and it measures 7.5 cm craniocaudally, likely conglomerated lymph node.Right ureter is courses anterior to the lake mass. An additional, rounded, 8 mm lymph node in the aortocaval region (image 119, series 4), it shows spiculated outline and minimal speckled calcification. Bladder: No suspicious finding. Pelvis: Fat-containing left-sided inguinal hernia. Prostate measuring 4 cm in transverse dimension. Vasculature: Normal. Bones: No suspicious bone lesion. Straightening of the lumbar curvature. Soft tissues: Normal. IMPRESSION: 1. Unremarkable CT examination of the kidneys, ureters and urinarybladder. Note made of right ureter courses along the anterior surface of theright common iliac lymph node mass. 2. Small hypodense lesion in segment 4A of the liver, possibly residual changes of previously treated hepatic segment 4A lesion. No suggestionof any other hepatic lesions. Mild fatty changes noted. 3. Several abnormally enlarged retroperitoneal lymph nodes. Largestlymph node show calcification and is in the right parahilar iliac measures approximately 2.3 cm in the transverse plane; however, 7.5 cm craniocaudally (likely conglomerate lymph node mass). In addition thereare a few more lymph nodes noted in the adjacent retroperitoneum, one ofthem shows spiculated outline and small speckled calcification. A mucin secreting adenocarcinoma metastasis can appear as speckled calcifiedlymph nodes (however, the nodes are not along the expected draining site forthe sigmoid). Granulomatous diseases are the other differential diagnosis. Correlate these findings with clinical data and previous imaging studies. I, Sanchez Squires MD have personally reviewed and interpreted this examination/study. > Interpreting Provider: Sanchez Squires MD on 1:55 AM Christy Molina APRN-UTILIZATION REVIEW SPECIALIST CT ORDERABLES * CREATININE - POCT INTERFACED (03/28/2022 9:48 AM CDT) Creatinine POCT 0.79 0.30 - 1.30 mg/dL 03/28/2022 9:54 AM CDT [facility] eGFR >90 >90 mL/min/1.7 3 m2 03/28/2022 9:54 AM CDT [facility] Blood BLOOD SPECIMEN / Unknown 03/28/2022 9:48 AM CDT 03/28/2022 9:54 AM CDT Chritsy Molina APRN-UTILIZATION REVIEW SPECIALIST LAB - POINT OF CARE ORDERABLES [address] [address], [facility] [phone] * URINALYSIS W/MICROSCOPIC NO CULTURE (02/27/2022 4:11 PM CDT) Color UA Straw Straw, Yellow 02/27/2022 4:58 PM CDT [facility] Clarity UA Clear Clear 02/27/2022 4:58 PM T [facility] Specific [place] UA 1.009 1.005 - 1.030 02/27/2022 4:58 PM [facility] pH UA 6.0 5.0 - 8.0 pH 02/27/2022 4:58 PM [facility] Protein UA Negative Negative 02/27/2022 4:58 PM [facility] Glucose UA Negative Negative 02/27/2022 4:58 PM [facility] Ketone UA Negative Negative 02/27/2022 4:58 PM [facility] Bilirubin UA Negative Negative 02/27/2022 4:58 PM [facility] Blood UA Negative Negative 02/27/2022 4:58 PM [facility] Nitrite UA Negative Negative 02/27/2022 4:58 PM [facility] Leukocyte Esterase Negative Negative 02/27/2022 4:58 PM [facility] Urobilinogen UA Negative Negative mg/dL 02/27/2022 4:58 PM [facility] RBC UA 0-2 None Seen, 0-2, 3-5 /HPF 02/27/2022 4:58 PM [facility] WBC UA 0-5 None Seen, 0-5 /HPF 02/27/2022 4:58 PM [facility] Squamous Epithelial Cells UA None Seen None Seen, 0-2, 3-5 /HPF 02/27/2022 4:58 PM [facility] Urine URINE SPECIMEN OBTAINED BY CLEAN CATCH PROCEDURE / Unknown Collection / Unknown 02/27/2022 4:11 PM CDT 02/27/2022 4:45 PM CDT [facility] - 02/27/2022 4:58 PM CDT Christy Molina CALL CENTER MANAGER-UTILIZATION REVIEW SPECIALIST LAB - URINALYSI S ORDERABLES [facility] [address] [place] [id number], [facility] [phone] * (ABNORMAL) PSA FREE + TOTAL PANEL (02/27/2022 9:31 AM CDT) PSA Total 1.7 0.0 - 4.0 ng/mL 02/27/2022 10:46 AM [facility] PSA Free 0.61(H) 0.00 - 0.50 ng/mL 02/27/2022 10:46 AM [facility] PSA % Free 36 See Comment % 02/27/2022 10:46 AM [facility] Comment: ??[facility] uses the Lou Network Control Operator method for Total and Free PSA measurements. ??Measurements obtained with different assay methods should not be used interchangeably. ?Patients with normal Digital Rectal Exam (ELFEGO) results and Total PSA results of 4.0 - 10.0 ng/mL represent a diagnostic madrigal zone. ??The decision of whether or not to perform a biopsy should not be based on the value of Free and/or Total PSA alone. Distribution of BATCH TRUCKER % Free PSA Values for specimens with BATCH TRUCKER Total PSA values between 4.0 and 10.0 ng/mL: ?% Free PSA Ranges ? <10.0 ??10.0-15.0 ??15.0-20.0 ?? 20.0-26.0 ?>26.0 ? Number of ? ----- ??--------- ??--------- ?? --------- ?----- ? Subjects Biopsy ? --------- ------ Negative ? 307 ?9.4 ?22.5 ?25.4 ?24.8 ? 17.9 Positive ? 123 ? 27.6 ?30.9 ?17.9 ?15.4 ?8.1 ? PSA % Free 02/27/2022 10:46 AM CDT [facility] Blood BLOOD SPECIMEN / Unknown Lab Venipuncture / Unknown 02/27/2022 9:31 AM CDT 02/27/2022 9:59 AM CDT Christy Molina CALL CENTER MANAGER-UTILIZATION REVIEW SPECIALIST LAB - CHEMISTRY ORDERABLES Performing Organization Address [facility] de Phone Number [facility] [address] [place] [address], [facility] [phone] * IN MSR PVR U&/BLADD CAPCTY US NON (02/27/2022 8:32 AM CDT) Narrative Corazon Lucero LPN - 02/27/2022 8:32 AM CDT Corazon Lucero LPN ? 02/27/2022 10:18 AM PVR= 243 ML Christy Molina CALL CENTER MANAGER-UTILIZATION REVIEW SPECIALIST PROCEDURE/MINOR SURGICAL ORDERABLES Care Teams Clearance Diver Relationship Specialty Start Date End Date Denis Fan MD [address] [place] [address] [address] [place] [address] PCP - General 02/27/22
--- OUTSIDE RECORDS SUMMARY | 2024-08-18 09:48 | XMS_ITS | Clinical Summary ---
Author Organization [facility] Address [address] [address] Care Team Providers Care Record Keeper Name Role Phone Dick Lugo MD Primary Care Provider [phone] Allergies No known active allergies Medications ferrous sulfate 325 mg (65 mg iron) tablet Take 1 Tablet (325 mg) by mouth 2 times daily. 9 Active cyanocobalamin (VITAMIN B-12) 100 mcg tablet Take 100 mcg by mouth daily. Active multivitamin (DAILY-CLAUDIA) tablet Take 1 Tablet by mouth daily. Active nirmatrelvir-rit onavir (PAXLOVID) 150-100 mg oral pack (renal dosing)Indicatio ns:High risk due to ongoing chemotherapy for colon cancer. Use as directed. 1 Each 2 Active ondansetron (ZOFRAN) 4 mg TabletIndication s:Malignant neoplasm of sigmoid colon (CMS/HCC) 1 tablet every 6-8 hours as needed. 30 Tablet 2 Active aspirin (ECOTRIN EC) 81 mg Tablet, Delayed Release (E.C.) Take 81 mg by mouth daily. Active doxycycline (MONODOX) 100 mg CapsuleIndicatio ns:Malignant neoplasm of sigmoid colon (CMS/HCC) TAKE 1 CAPSULE BY MOUTH EVERY 12 HOURS FOR 14 DAYS 28 Capsule 3 Active lidocaine-priloc claus (EMLA) 2.5-2.5 % CreamIndications :Malignant neoplasm of sigmoid colon (CMS/HCC) APPLY TO PORT SITE 30 MINUTES BEFORE USE 30 Gram 3 Active clindamycin phosphate (CLEOCIN T) 1 % Gel Apply to affected area 2 times daily. 60 Gram 1 3 Active doxycycline (MONODOX) 100 mg CapsuleIndicatio ns:Malignant neoplasm of sigmoid colon (CMS/HCC) TAKE 1 CAPSULE BY MOUTH EVERY 12 HOURS FOR 14 DAYS 30 Capsule 3 Active doxycycline (MONODOX) 100 mg CapsuleIndicatio ns:Malignant neoplasm of sigmoid colon (CMS/HCC) TAKE 1 CAPSULE BY MOUTH EVERY 12 HOURS FOR 14 DAYS 28 Capsule 3 Active fluconazole (DIFLUCAN) 150 mg tabletIndication s:Yeast infection Take 1 Tablet (150 mg) by mouth every third day. If no improvement in 3 days, please take additional dose. 2 Tablet 4 Active tolnaftate (TINACTIN) 1 % Powder Apply to affected area 2 times daily. 45 Gram 1 4 Active doxycycline (MONODOX) 100 mg CapsuleIndicatio ns:Malignant neoplasm of sigmoid colon (CMS/HCC) TAKE 1 CAPSULE BY MOUTH EVERY 12 HOURS FOR 14 DAYS 30 Capsule 4 Active doxycycline (MONODOX) 100 mg CapsuleIndicatio ns:Malignant neoplasm of sigmoid colon (CMS/HCC) TAKE 1 CAPSULE BY MOUTH TWICE DAILY FOR 2 WEEKS 28 Capsule 4 Active potassium chloride (KLOR-CON) 10 mEq Extended Release tabletIndication s:Malignant neoplasm of sigmoid colon (CMS/HCC) take 2 tablets by mouth once daily with breakfast 60 Tablet 4 Active Active Problems Problem Noted Date Diagnosed Date Malignant neoplasm of sigmoid colon 06/27/2018 Resolved Problems Problem Noted Date Diagnosed Date Resolved Date Colon cancer metastasized to liver 06/27/2018 06/27/2018 Encounters Date Type Department Care Team Description 08/11/2024 External Device Data [facility] ABSTRACTION Provider, Abstract 06/16/2024 External Device Data [facility] ABSTRACTION Provider, Abstract from Last 3 Months Family History Medical History Relation Name Comments Heart Disease Father Cancer Mother Ovarian Cancer Mother Heart Disease Sister 1 Heart Disease Sister 2 Relation Name Status Comments Brother 1 Alive Brother 2 Alive Father Alive Mother Sister 1 Alive Sister 2 Alive Social History Tobacco Use Types Packs/Day Years Used Date Smoking Tobacco: Former Cigarettes 0.3 10 1 08/28/2000 - 06/27/2011 Smokeless Tobacco: Never Tobacco Cessation:Counseling Given: Not Answered Alcohol Use Standard Drinks/Week Comments No 0 (1 standard drink = 0.6 oz pur e alcohol) Sex and Gender Information Value Date Recorded Sex Assigned at Not on file 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 Gender Identity Not on file Sexual Orientation Not on file Last Filed Vital Signs Vital Sign Reading Time Taken Comments Blood Pressure 104/64 09/26/2023 9:13 AM CDT Pulse 98 09/26/2023 9:13 AM CDT Temperature 36.1 ??C (97 ??F) 09/26/2023 9:13 AM CDT Respiratory Rate 14 09/26/2023 9:13 AM CDT Oxygen Saturation 94% 09/26/2023 9:13 AM CDT Inhaled Oxygen Concentration - - Weight 81.6 kg (179 lb 12.8 oz) 09/26/2023 9:13 AM CDT Height 180.3 cm (5' 11 ) 03/21/2023 8:33 AM CDT Body Mass Index 25.08 03/21/2023 8:33 AM CDT Plan of Treatment Health Maintenance Due Date Last Done Comments Pre-Diabetes and Diabetes Screening 1970 DTAP/TDAP/TD VACCINES (1 - Tdap) 1989 HEPATITIS B VACCINES (1 of 3 - 19+ 3-dose series) 08/16 ZOSTER VACCINE (1 of 2) 2020 INFLUENZA VACCINE (#1) 2024 Abdominal Aortic Aneurysm (AAA) Screening Completed 06/16/2018 Procedures Procedure Name Priority Date/Time Associated Diagnosis Comments CT ABDOMEN PELVIS WO CONTRAST Routine 06/16/2018 from Last 3 Months or Most Recently Relevant to Health Maintenance Results * CT ABDOMEN PELVIS WO CONTRAST (06/16/2018) Anatomical Region Laterality Modality Abdomen Other us Abstract Provider CT ORDERABLES Final Result from Last 3 Months or Most Recently Relevant to Health Maintenance Insurance MEDICARE PART A HOSPITAL ONLY MEDICAID [place] [facility] [address] [id number] Care Teams Record Keeper Relationship Specialty Start Date End Date Dick Lugo MD [address] [facility] [address] [place] [id number] PCP - General Internal Medicine 02/12/22
--- OUTSIDE RECORDS SUMMARY | 2024-08-18 09:48 | XMS_ITS | Referral Summary ---
Author Organization [facility] Address [address] [place] [address] Care Team Providers Care Examination Proctor Name Role Phone Denis Fan MD Primary Care Provider Source Comments [facility] [place],non-owned Affiliates and Associated Physician Practices is amultiple site organization consisting of ambulatory clinics and hospital sitesin [place], [place], [place] and [place]. This disclosure is being madepursuant to the Care Everywhere program and may not contain all information available regarding this patient. Last updated 18.[facility] [place] Allergies No known active allergies Medications * Be aware that medications may not be up to date on this document. Alwaysverify current medications with the patient. Medication Sig Dispensed Refills Start Date End Date Status cyanocobalamin 100 MCG tablet Take 100 mcg by mouth once daily Active doxycycline monohydrate 100 MG capsule Take 1 capsule by mouth every 12 hours 01/27/2022 Active lidocaine-prilocaine (Emla) 2.5-2.5 % cream Apply to port site 30 minutes before use 04/25/2021 Active Multiple Vitamin (Daily Vites) TABS Take 1 tablet by mouth once daily Active nirmatrelvir-ritonavi r renal (Paxlovid) USE DIRECTED 01/19/2022 A ctive ondansetron (Zofran) 4 MG tablet Take 4 mg by mouth every 8 hours as needed for nausea and vomiting. 01/05/2022 Active potassium chloride ER (Klor-Con) 10 MEQ tablet TAKE 2 TABLETS BY MOUTH ONCE DAILY WITH BREAKFAST 01/27/2022 Active LOW-DOSE ASPIRIN PO Take 81 mg by mouth Active ferrous sulfate 325 (65 FE) MG tablet Take 325 mg by mouth once daily Active Social History Tobacco Use Types Packs/Day Years [...] Mass Index 29.01 04/02/2022 11:26 AM CDT Plan of Treatment Not on file Care Teams Examination Proctor Relationship Specialty Start Date End Date Denis Fan MD [address] [place] [id number] PCP - General 02/27/22
--- OUTSIDE RECORDS SUMMARY | 2024-08-18 09:48 | XMS_ITS | Clinical Summary ---
Author Organization [facility] Address [address] [place] [address] Care Team Providers Care Lithoplate Maker Name Role Phone Denis Fan MD Primary Care Provider [phone] Source Comments [facility],non-owned Affiliates and Associated Physician Practices is amultiple site organization consisting of ambulatory clinics and hospital sitesin [place], [place], [place] and [place]. This disclosure is being madepursuant to the Care Everywhere program and may not contain all information available regarding this patient. Last updated 18.[facility] Allergies No known active allergies Medications * [...] 04/02/2022 11:26 AM CDT Plan of Treatment Health Maintenance Due Date Last Done Comments COLOGUARD (AGES 45-75) - COL ON CA SCREENING 1970 COLON MONITORING 1970 COLONOSCOPY - COLON CA SCREENING 1970 CT COLONOGRAPHY - COLON CA SCREENING 1970 Colorectal Cancer Screening 1970 FIT - COLON CA SCREENING 1970 FLEX SIG - COLON CA SCREENING 1970 LIPID TESTING 1970 HIV SCREENING 1985 HEPATITIS C SCREENING 09/05/1988 DTAP/TDAP/TD VACCINES (1 - Tdap) 1989 HEPATITIS B VACCINE (1 of 3 - 19+ 3-dose series) 1989 PNEUMOCOCCAL VACCINE 50+ (1 of 1 - PCV) 2020 ZOSTER VACCINE (1 of 2) 2020 SCREENING FOR DIABETES 02/27/2022 COVID-19 VACCINE ( - 2023-2 5 season) 2024 INFLUENZA VACCINE (#1) 2024 DEPRESSION SCREENING 07/15/2024 HIB VACCINE Aged Out No longer eligi ble based on patient's age to complete this topic HPV VACCINE Aged Out No longer eligi ble based on patient's age to complete this topic MENINGOCOCCAL (Group B) VACCINE Aged Out No longer eligible based on patient's age to complete this topic MENINGOCOCCAL VACCINE Aged Out No mary albin eligible based on patient's age to complete this topic PNEUMOCOCCAL VACCINE Aged Out No long er eligible based on patient's age to complete this topic Care Teams Lithoplate Maker Relationship Specialty Start Date End Date Denis Fan MD [address] [address] PCP - General 02/27/22
[2024-08-18 12:16] VITALS: BP 127/90; O2SAT 100
[2024-08-18] MEDS: KETOROLAC (*BKC) 60 MG/2 ML VIAL IM (12:19)
[2024-08-18] MEDS: predniSONE 20 MG TABLET 60 MG PO (12:20)
--- OUTSIDE RECORDS SUMMARY | 2024-08-18 12:25 | XMS_ITS | Referral Summary ---
Author Organization [facility] Address [address] [place] [address] Care Team Providers Care Lining Printer Name Role Phone Denis Fan MD Primary Care Provider [phone] Source Comments [facility],non-owned Affiliates and Associated Physician Practices is amultiple site organization consisting of ambulatory clinics and hospital sitesin [place], [place], [place] and [place]. This disclosure is being madepursuant to the Care Everywhere program and may not contain all information available regarding this patient. Last updated 18.[facility] Allergies No known active allergies Medications * [...] of Treatment Not on file Care Teams Lining Printer Relationship Specialty Start Date End Date Denis Fan MD [address] [place] [id number] PCP - General 02/27/22
--- OUTSIDE RECORDS SUMMARY | 2024-08-18 12:25 | XMS_ITS | Patient Health Summary ---
Author Organization [facility] Address [address] [place] [address] Care Team Providers Care Hourly Shift Name Role Phone Denis Fan MD Primary Care Provider [phone] Note from [facility],non-owned Affiliates and Associated Physician Practices is amultiple site organization consisting of ambulatory clinics and hospital sitesin [place], [place], [place] and [place]. This disclosure is being madepursuant to the Care Everywhere program and may not contain all information available regarding this patient. Last updated 18.[facility] Allergies No known active allergies Medications [...] 02/27/2022) Performed for Hematuria, unspecified type * IA MSR PVR U&/BLADD CAPCTY US NON(Performed 02/27/2022) Performed for Hematuria, unspecified type * URINALYSIS AUTO - POINT OF CARE (AMB) [facility]U(Performed 02/27/2022) Performed for Hematuria, unspecified type Results * URINALYSIS AUTO - POINT OF CARE (AMB) [facility] (04/02/2022) Only the most recent of2 resultswithin the time period is included. Glucose UA neg Bilirubin UA POCT neg Ketones UA POCT neg Specific [place] UA 1.015 Blood Urine POCT + pH UA 6.0 Protein UA neg Urobilinogen UA neg Nitrite UA neg WBC UA neg Urine URINE / Unknown 04/02/2022 Bette Silva RESTAURANT COOK-MECHANICAL ENGINEERING OFFICER LAB - POINT O F CARE ORDERABLES [...] DATE/TIME OF EXAM: ??03/28/2022 10:26 AM, LOCATION [facility] INDICATION: R31.9: Hematuria, unspecified type ADDITIONAL [...] prior reports in care everywhere tab of [facility] was performed including MRI of the abdomen [...] DATE/TIME OF EXAM: 03/28/2022 10:26 AM, LOCATION [facility] INDICATION: R31.9: Hematuria, unspecified type ADDITIONAL [...] Squires MD on 1:55 AM Christy Molina APRN-MECHANICAL ENGINEERING OFFICER CT ORDERABLES * CREATININE - POCT INTERFACED (03/28/2022 9:48 AM CDT) Creatinine POCT 0.79 0.30 - 1.30 mg/dL 03/28/2022 9:54 AM CDT [facility] eGFR >90 >90 mL/min/1.7 3 m2 03/28/2022 9:54 AM CDT [facility] Blood BLOOD SPECIMEN / Unknown 03/28/2022 9:48 AM CDT 03/28/2022 9:54 AM CDT Christy Molina APRN-MECHANICAL ENGINEERING OFFICER LAB - POINT OF CARE ORDERABLES [address] [address], [facility] [phone] * URINALYSIS W/MICROSCOPIC NO CULTURE (02/27/2022 4:11 PM CDT) Color UA Straw Straw, Yellow 02/27/2022 4:58 PM CDT [facility] Clarity UA Clear Clear 02/27/2022 4:58 PM T [facility] Specific [place] UA 1.009 1.005 - 1.030 02/27/2022 4:58 PM [facility] pH UA 6.0 5.0 - 8.0 pH 02/27/2022 4:58 PM [facility] Protein UA Negative Negative 02/27/2022 4:58 PM [facility] Glucose UA Negative Negative 02/27/2022 4:58 PM [facility] Ketone UA Negative Negative 02/27/2022 4:58 PM [facility] Bilirubin UA Negative Negative 02/27/2022 4:58 PM [facility] Blood UA Negative Negative 02/27/2022 4:58 PM [facility] Nitrite UA Negative Negative 02/27/2022 4:58 PM [facility] Leukocyte Esterase Negative Negative 02/27/2022 4:58 PM [facility] Urobilinogen UA Negative Negative mg/dL 02/27/2022 4:58 PM [facility] RBC UA 0-2 None Seen, 0-2, 3-5 /HPF 02/27/2022 4:58 PM [facility] WBC UA 0-5 None Seen, 0-5 /HPF 02/27/2022 4:58 PM [facility] Squamous Epithelial Cells UA None Seen None Seen, 0-2, 3-5 /HPF 02/27/2022 4:58 PM [facility] Urine URINE SPECIMEN OBTAINED BY CLEAN CATCH PROCEDURE / Unknown Collection / Unknown 02/27/2022 4:11 PM CDT 02/27/2022 4:45 PM CDT [facility] - 02/27/2022 4:58 PM CDT Christy Molina RESTAURANT [employer]OOK-MECHANICAL ENGINEERING OFFICER LAB - URINALYSI S ORDERABLES [facility] [address] [place] [address], [facility] [phone] * (ABNORMAL) PSA FREE + TOTAL PANEL (02/27/2022 9:31 AM CDT) PSA Total 1.7 0.0 - 4.0 ng/mL 02/27/2022 10:46 AM [facility] PSA Free 0.61(H) 0.00 - 0.50 ng/mL 02/27/2022 10:46 AM [facility] PSA % Free 36 See Comment % 02/27/2022 10:46 AM [facility] Comment: ??[facility] uses the Lou Trimmer Operator method for Total and Free PSA [...] Free and/or Total PSA alone. Distribution of CLASSIFICATION ANALYST % Free PSA Values for specimens with CLASSIFICATION ANALYST Total PSA values between 4.0 and 10.0 ng/mL: ?% Free PSA Ranges ? <10.0 ??10.0-15.0 ??15.0-20.0 ?? 20.0-26.0 ?>26.0 ? Number of ? ----- ??--------- ??--------- ?? --------- ?----- ? Subjects Biopsy ? --------- ------ Negative ? 307 ?9.4 ?22.5 ?25.4 ?24.8 ? 17.9 Positive ? 123 ? 27.6 ?30.9 ?17.9 ?15.4 ?8.1 ? PSA % Free 02/27/2022 10:46 AM CDT [facility] Blood BLOOD SPECIMEN / Unknown Lab Venipuncture / Unknown 02/27/2022 9:31 AM CDT 02/27/2022 9:59 AM CDT Christy Molina RESTAURANT [employer]OOK-MECHANICAL ENGINEERING OFFICER LAB - CHEMISTRY ORDERABLES Performing Organization Address [facility] de Phone Number [facility] [address] [place] [address], [facility] [phone] * IA MSR PVR U&/BLADD CAPCTY US NON (02/27/2022 8:32 AM CDT) Narrative Corazon Lucero LPN - 02/27/2022 8:32 AM CDT Corazon Lucero LPN ? 02/27/2022 10:18 AM PVR= 243 ML Christy Molina RESTAURANT COOK-MECHANICAL ENGINEERING OFFICER PROCEDURE/MINOR SURGICAL ORDERABLES Care Teams Hourly Shift Relationship Specialty Start Date End Date Denis Fan MD [address] [place] [address] [address] [place] [address] PCP - General 02/27/22
--- OUTSIDE RECORDS SUMMARY | 2024-08-18 12:25 | XMS_ITS | Clinical Summary ---
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
--- OUTSIDE RECORDS SUMMARY | 2024-08-18 12:25 | XMS_ITS | Continuity of Care Document ---
Author Organization [facility] Address [address] [address] Phone Care Team Providers Care Car Unloader Name Role Phone Aaron Weathers MD Unavailable Unavailable Allergies, Adverse Reactions, Alerts Substance Reaction Status Criticality No Known Allergies Active No Inform ation Procedures Procedure Date PREV VISIT, NEW, AGE 40-64 Advance Directives Directive Yes / No Effective Date File Name No Information Encounters Encounter Description Practice Location Reason(s) For Visit Diagnoses Date Provider Providers Copied on Encounter PREV VISIT, NEW, AGE 40-64 [facility], [address] [place], [id number], [place] tel:[phone] [facility] Physical (chief complaint) Encntr for general adult medical exam w/o abnormal findings Jasiel Walker. [email or web address], [facility] [place], [id number], [place]. tel:[phone] Referring Provider: Aaron Weathers, [address] [facility] [place], [place], [id number]. tel:[phone] Family History Family Member Type Diagnosis Age At Onset Sister Problem (finding) on heart medic ine but no heart attack and no idea what she has Father Problem (finding) heart medicine of unknown type, no heart attack Mother Problem (finding) of ovarian CA (Cau se Of ) 41 Father Problem (finding) Alive and well Payers Payer name Insurance type Covered alliance party ID Authoriza tion(s) No Information Social History Type Description Quantity Date Captured Comments Alcohol Use Details Caffeine Use Details Unknown Tobacco Use Status Ex-cigarette smoker 019 Smoking Status Former smoker Smoking Tobacco Use Details Cigarette: Age Started: 18, Age Stopped: 39, Years Used 21 Cigarette: 2 Cigarettes per day, Pack Year: 2.1 Sex Male Vital Signs Date / Time: Height Weight BMI Pulse Rate Blood Pressure Temperature Respiratory Rate Body Surface Area Head Circumference BMI percentile Pulse Ox Inhaled Ox 12:04 PM 71.00 in 162.00 lbs 22.5 9 kg/m eter (2) 88 /min 101/75 mm[Hg] 97.0 F 18 /min Chief Complaint And Reason For Visit From encounter dated '07/18/2018 10:00'. Physical (chief complaint). Description: Pt needs annual physical. Pt was recently found to have colon CA with metastasis to pelvic area. He had PET scan done which did not show any organ mets. Pt isanemic and he did have renal failure which improved. Pt did have sepsis from ischemic bowel. Pt currently doing ok. pt denies any blood in stool. Pt denies any abdominal pain. Pt will start chemo nowbefore surgical tumor removal. Pt needs PCP. Pt overall feels ok. Plan Of Treatment Date Type Action Status Goal Tobacco cessation counseling completed History Of Present Illness Encounter Date Complaint History Of Prese nt Illness Physical Pt needs annual physical. Pt was recently found to have colon CA with metastasis to pelvic area. He had PET scan done which did not show any organ mets. Pt is anemic and he did have renal failure which improved. Pt did have sepsis from ischemic bowel. Pt currently doing ok. pt denies any blood in stool. Pt denies any abdominal pain. Pt will start chemo now before surgical tumor removal. Pt needs PCP. Pt overall feels ok. Instructions Date Instruction Additional Infor mation No Information Assessments Type Assessment Date assessment Encntr for general adult medical exam w/o abnormal findings Mental Status Date Cognitive Assessment Orientation - [place] ed to time, place, person, situation.
--- OUTSIDE RECORDS SUMMARY | 2024-08-18 12:25 | XMS_ITS | Clinical Summary ---
Author Organization [facility] Address [address] [place] [address] Care Team Providers Care Machine Molder Squeeze Name Role Phone Denis Fan MD Primary Care Provider [phone] Source Comments [facility],non-owned Affiliates and Associated Physician Practices is amultiple site organization consisting of ambulatory clinics and hospital sitesin [place], [place], [place] and [place]. This disclosure is being madepursuant to the Care Everywhere program and may not contain all information available regarding this patient. Last updated 18.[facility] Allergies No known active allergies Medications * [...] age to complete this topic Care Teams Machine Molder Squeeze Relationship Specialty Start Date End Date Denis Fan MD [address] [address] PCP - General 02/27/22
[2024-08-18 12:29] LABS: Basophils Percent Auto 0.5 % (0.2-1.2); Eosinophils Absolute Auto 0.1 K/mm3 (0-0.3); Eosinophils Percent Auto 1.7 % (0-4.4); Hematocrit 42.3 % (42.0-52.0); Hemoglobin 13.4 g/dL (14.0-18.0); Immature Granulocyte Absolute 0.02 K/mm3 (0.00-0.031); Immature Granulocyte Percent A 0.3 % (0-0.5); Lymphocytes Absolute Auto 1.54 K/mm3 (0.9-3.2); Lymphocytes Percent Auto 20.7 % (18.3-44.2); Mean Corpuscular HGB Conc 31.7 g/dl (32-36); Mean Corpuscular Hemoglobin 27.8 pg (26-34); Mean Corpuscular Volume 87.8 fl (80-100); Mean Platelet Volume 9.2 fl (7.4-10.4); Monocytes Absolute Auto 0.6 K/mm3 (0.1-0.6); Monocytes Percent Auto 8.2 % (2.6-8.5); Neutrophils Absolute Auto 5.1 K/mm3 (1.3-6.7); Neutrophils Percent Auto 68.6 % (45.5-73.1); Platelet Count Result 266 k/mm3 (150-375); Red Blood Count 4.82 M/mm3 (4.6-6.20); Red Cell Distribution Width 13.2 % (11.5-14.5); White Blood Count 7.4 K/mm3 (4.5-10.0)
[2024-08-18 12:46] VITALS: BP 120/85; O2SAT 100
[2024-08-18 12:46] LABS: INR 1.1; Prothrombin Time 14.2 Seconds (11.1-14.7); Troponin I < 0.012 ng/mL (0.000-0.034)
[2024-08-18 12:47] LABS: Partial Thromboplastin Time 28.9 Seconds (22.3-36.8)
[2024-08-18 12:53] LABS: Alanine Aminotransferase 23 U/L (6-50); Albumin Level 4.4 g/dL (3.5-5.1); Alkaline Phosphatase 113 U/L (38-126); Anion Gap 12 mmol/L (4-12); Aspartate Amino Transferase 24 U/L (17-59); Bilirubin,Total 0.7 mg/dL (0.2-1.3); Blood Urea Nitrogen 18 mg/dL (9-20); Calcium 9.2 mg/dL (8.4-10.2); Carbon Dioxide 25 mmol/L (22-30); Chloride 106 mmol/L (98-107); Estimated Glomerular Filt Rate > 60; Glucose 112 mg/dL (65-110); Potassium 4.1 mmol/L (3.4-5.0); Sodium 143 mmol/L (137-145)
[2024-08-18 12:59] LABS: Lipase 54 U/L (23-300)
[2024-08-18 13:01] VITALS: BP 121/88; O2SAT 95
--- NOTE | 2024-08-18 13:04 | ED_ITS ---
HPI - Back Pain/Injury General Chief Complaint: Back Pain/Injury Stated Complaint: low back pain Time Seen by Provider: 08/18/24 12:00 Source: patient Mode of arrival: ambulatory Limitations: no limitations History of Present Illness HPI Narrative: This is a 53-year-old male, with past medical history of colon cancer, who presents emergency department complaining of low back pain. The patient states his chemotherapy stopped in August 2023 due to a change in his insurance. He has not followed up with his oncologist, Dr. Arita since then. He states in the past 2 weeks, he has had intermittent dull and occasionally sharp low back pain at maximum 9/10, at minimum 1/10. He states this occasionally radiates to the left leg. He denies loss of sensation in the groin, loss of bowel / bladder control, fevers or known trauma. He has no other complaints at this time. Related Data Home Medications ?Medication ?Instructions ?Recorded ?Confirmed ?Last Taken ?Type cyanocobalamin (vitamin B-12) 1,000 mcg PO DAILY 04/28/19 10/10/23 Unknown History 1,000 mcg capsule ferrous sulfate 324 mg (65 mg 324 mg PO DAILY 04/28/19 10/10/23 Unknown History iron) tablet,delayed release ondansetron HCl 4 mg tablet 4 mg PO Q8H PRN Nausea 04/28/19 10/10/23 Unknown History aspirin 81 mg tablet,delayed 81 mg PO DAILY 09/14/19 10/10/23 Unknown History release (Adult Low Dose Aspirin) potassium chloride 10 mEq 20 meq PO DAILY 04/19/20 10/10/23 Unknown History tablet,extended release (Klor-Con) pediatric multivitamin no.76 1 tablet PO DAILY 04/21/20 10/10/23 Unknown History (Flintstones Complete chewable tablet) lidocaine-prilocaine 2.5 %-2.5 % See Rx Instructions .Route .COMPLEX 11/08/21 10/10/23 Unknown History topical cream Allergies Allergy/AdvReac Type Severity Reaction Status Date / Time No Known Allergies Allergy Verified 10/10/23 09:44 Review of Systems 2 Review of Systems: All systems reviewed & are unremarkable except as noted in HPI and below PMFSH Past Medical History Medical History Malignant neoplasm of sigmoid colon Surgical History Surgical History No significant past surgical history Social History Social History (Updated 08/18/24 @ 22:37 by Vivek Vela MD) Smoking status: Never smoker Alcohol intake: never Substance use: never Exam 2 Narrative: GENERAL: Well-developed, well-nourished, and in no acute distress. HEAD: Normocephalic, atraumatic. EYES: PERRLA and EOMI. CHEST: Clear to auscultation. No respiratory distress. No wheezes rales or rhonchi HEART: Regular rate and rhythm. No murmur heard. Normal peripheral pulses. ABDOMEN: Soft, nontender, nondistended, normal active bowel sounds. BACK: No midline spine tenderness to palpation, no step-off or crepitus EXTREMITIES: Normal range of motion. No edema. SKIN: Warm, dry, no rash. NEURO: Alert and oriented x3. No focal deficit. Moving all 4 limbs spontaneously PSYCH: Normal mood and affect. Course Course Emergency Course: 14:30 - Chemistries within normal limits. CBC unremarkable. Coags within normal limits. Troponin negative. Urinalysis not concerning for urinary tract infection. CT abdomen pelvis demonstrates Worsened retroperitoneal and pelvic lymphadenopathy, consistent with metastatic disease. New moderate right hydronephrosis and hydroureter secondary to the retroperitoneal lymphadenopathy. Right inguinal hernia containing fat. I suspect this is the cause of the patient's pain. Given however the patient has normal kidney function and absence of signs of infection, I do not suspect the need for admission at this time. Will discharge with pain medications and recommendation the patient to resume follow-up with his oncologist and pursue resumption chemotherapy. I discussed the findings and recommendations with the patient. Discussed return and emergency precautions including signs/symptoms of cauda equina epidural abscess. The patient voiced understanding and agreement with the plan. All questions answered to his satisfaction. Vital Signs Vital signs: Vital Signs Temperature 97.9 F 08/18/24 09:17 Pulse Rate 110 H 08/18/24 09:17 Respiratory Rate 16 08/18/24 09:17 Blood Pressure 124/80 08/18/24 09:17 Pulse Oximetry 100 08/18/24 09:17 Oxygen Delivery Room Air 08/18/24 09:17 Temperature 97.9 F 08/18/24 09:17 Pulse Rate 110 H 08/18/24 09:17 Respiratory Rate 16 08/18/24 09:17 Blood Pressure 121/88 08/18/24 13:01 Pulse Oximetry 95 08/18/24 13:01 Oxygen Delivery Room Air 08/18/24 09:17 MDM - Back Pain/Injury MDM Narrative Medical decision making narrative: plan: Imaging, pain control, reassess Differential Diagnosis Differential diagnosis: Likely lumbar radiculopathy, sciatica, strain of lumbar region and other ( fracture, metastasis, mass effect, other) Lab Data 08/18/24 12:15 08/18/24 12:15 Labs: Lab Results 08/18/24 08/18/24 Range/Units 12:15 13:36 WBC 7.4 (4.5-10.0) K/mm3 RBC 4.82 (4.6-6.20) M/mm3 Hgb 13.4 L (14.0-18.0) g/dL Hct 42.3 (42.0-52.0) % MCV 87.8 (80-100) fl MCH 27.8 (26-34) pg MCHC 31.7 L (32-36) g/dl RDW 13.2 (11.5-14.5) % Plt Count 266 (150-375) k/mm3 MPV 9.2 (7.4-10.4) fl Immature Gran % (Auto) 0.3 (0-0.5) % Neut % (Auto) 68.6 (45.5-73.1) % Lymph % (Auto) 20.7 (18.3-44.2) % [place] % (Auto) 8.2 (2.6-8.5) % Eos % (Auto) 1.7 (0-4.4) % Baso % (Auto) 0.5 (0.2-1.2) % Lymph # (Auto) 1.54 (0.9-3.2) K/mm3 [place] # (Auto) 0.6 (0.1-0.6) K/mm3 Eos # (Auto) 0.1 (0-0.3) K/mm3 Baso # (Auto) 0.0 (0.0-0.1) K/mm3 Abs Immat Gran (auto) 0.02 (0.00-0.031) K/mm3 Absolute Neuts (auto) 5.1 (1.3-6.7) K/mm3 Absolute Nucleated RBC 0.000 (0.0-0.012) K/mm3 Nucleated RBC % 0.0 (0.0-0.2) % PT 14.2 (11.1-14.7) Seconds INR 1.1 APTT 28.9 (22.3-36.8) Seconds Sodium 143 (137-145) mmol/L Potassium 4.1 (3.4-5.0) mmol/L Chloride 106 (98-107) mmol/L Carbon Dioxide 25 (22-30) mmol/L Anion Gap 12 (4-12) mmol/L BUN 18 (9-20) mg/dL Creatinine 1.14 (0.7-1.3) mg/dL Estim Creat Clear Calc Not Reportable Estimated GFR > 60 (59 - ) Glucose 112 H (65-110) mg/dL Calcium 9.2 (8.4-10.2) mg/dL Total Bilirubin 0.7 (0.2-1.3) mg/dL AST 24 (17-59) U/L ALT 23 (6-50) U/L Alkaline Phosphatase 113 (38-126) U/L Troponin I < 0.012 (0.000-0.034) ng/mL Total Protein 9.0 H (6.3-8.2) g/dL Albumin 4.4 (3.5-5.1) g/dL Lipase 54 (23-300) U/L Urine Color Yellow (Yellow) Urine Appearance Clear (Clear) Urine pH 5.5 (5.0-9.0) Ur Specific [place] 1.025 (1.001-1.035) Urine Protein Negative (Negative) mg/dL Urine Glucose (UA) Negative (Negative) mg/dL Urine Ketones Negative (Negative) mg/dL Ur Blood (Man) Negative (Negative) Urine Nitrate Negative (Negative) Urine Bilirubin Negative (Negative) Urine Urobilinogen 0.2 (<2.0) mg/dL Leukocyte Esterase Rfl Negative (Negative) SHARIF/UL ECG Data EKG #1: Attestation: I personally reviewed and interpreted this ECG as follows: ECG completion date: 08/18/24 ECG completion time: 12:26 Prior ECG tracings: not available for review Interpretation: sinus rhythm, rate 94, normal axis, no ST segment elevations or T-wave inversions concerning for ischemia, normal intervals with QTC of 390. Discharge Plan Discharge Clinical Impression: Lumbar radiculopathy, Lymphadenopathy, retroperitoneal, Malignant neoplasm of sigmoid colon Patient Disposition: Home, Self-Care Condition: Stable Instructions: Antibiotic Form, Colorectal Cancer (DC) Additional Instructions: You were seen in the emergency department. A CT scan showed enlarged lymphadenopathy in the abdomen, worse compared to your previous images. I suspect this may be the cause of your pain. I recommend pain medications and contacting your oncologist to resume your chemotherapy. If you develop loss of sensation in the groin, loss of bowel /bladder control, or if you have other emergent concerns for life, limb, or eyesight, return to the emergency department. Patient Language: Azeri Prescriptions: New tramadol 50 mg tablet 50 mg PO Q6H PRN (Reason: pain) Qty: 12 0RF No Action cyanocobalamin (vitamin B-12) 1,000 mcg Capsule 1,000 mcg PO DAILY ferrous sulfate 324 mg (65 mg iron) Tablet,Delayed Release (Dr/Ec) 324 mg PO DAILY ondansetron HCl 4 mg Tablet 4 mg PO Q8H PRN (Reason: Nausea) aspirin [Adult Low Dose Aspirin] 81 mg Tablet,Delayed Release (Dr/Ec) 81 mg PO DAILY potassium chloride [Klor-Con 10] 10 mEq Tablet Extended Release 20 meq PO DAILY Flintstones Complete Tablet,Chewable 1 tablet PO DAILY lidocaine-prilocaine 2.5-2.5 % cream See Rx Instructions .ROUTE .COMPLEX Rx Instructions: Apply to port site 30 minutes before treatment metronidazole 500 mg tablet 500 mg PO Q8H 10 Days Qty: 30 0RF clotrimazole 1 % cream 1 applic topical BID 14 Days Qty: 15 0RF clotrimazole 1 % cream 1 applic topical BID 14 Days Qty: 15 0RF Follow-up/Referrals: Jose Guadalupe Arita MD [Physician] - 1 Week Denis Fan MD [Primary Care Provider] - Stand Alone Forms: Work/School Release IP Time of Disposition: 14:36
[2024-08-18 13:57] LABS: Add Urine Microscopic? NO; Appearance Urine Clear (Clear); Bilirubin Urine Negative (Negative); Blood Urine Negative (Negative); Color Urine Yellow (Yellow); Glucose Urine UA Negative (Negative); Ketones Urine Negative (Negative); Leukocyte Esterase Ur Negative LEU/UL (Negative); Nitrate Urine Negative (Negative); Protein Urine Negative (Negative); Specific Grav Ur 1.025 (1.001-1.035); Urobilinogen Urine 0.2 mg/dL (<2.0); pH Urine 5.5 (5.0-9.0)
== END 2024-08-18 14:41 | disposition home or self-care (01) ==
PROVIDERS: Registered Nurse; Emergency Provider Preventive Medicine Aerospace Medicine; PCP Emergency Medicine
DX: M54.16 Radiculopathy, lumbar region (principal); R59.1 Generalized enlarged lymph nodes; C18.7 Malignant neoplasm of sigmoid colon; T45.1X6A Underdosing of antineoplastic and immunosuppressive drugs, initial encounter; Z91.141 Patient's other noncompliance with medication regimen due to financial hardship; N13.30 Unspecified hydronephrosis; K40.90 Unilateral inguinal hernia, without obstruction or gangrene, not specified as recurrent
CPT/HCPCS: 36415; 72132; 74177; 80053; 81003; 83690; 84484; 85025; 85610; 85730; 93005; 96372; 99284; J1885; J7512; Q9967

== ENCOUNTER 2024-12-10 14:44 | Emergency (ER) | payer MEDICARE, SELFPAY ==
--- NOTE | ~2024-12-10 | CT_ITS ---
CT lumbar spine wo con Ordering provider: Ofelia George PA-C History: 54 years Male with . low back pain radiating down right leg . Comparison: August 18, 2024 Technique: CT lumbar spine without contrast. Automated exposure control and iterative reconstruction technique were employed. The dose-length product was 730.74 mGy-cm. FINDINGS: VERTEBRAE: Normal height and alignment. No subluxation or visible acute fracture. DISC SPACES: Well maintained. Right L3-L4 and L5-S1 facet joint disease. T12-L1: No stenosis. L1-L2: No stenosis. Mild diffuse disc bulge. L2-L3: No stenosis. Mild diffuse disc bulge. L3-L4: No stenosis. Mild diffuse disc bulge. Slight narrowing of the foramina. L4-L5: No stenosis. Diffuse disc bulge with slight narrowing of the foramina. L5-S1: No stenosis. Diffuse disc bulge with osteophyte formation. PARASPINOUS SOFT TISSUES: Calcifications in the area of the prevertebral region on the right side sug gestive of lymphadenopathy with calcification increased in size from previous examination. Right hydr onephrotic changes and right hydroureter is seen with fat stranding seen anterior to the mentioned ma ss. Left para-aortic lymph nodes enlargement is also seen. Bilateral sacroiliitis. IMPRESSION: Para-aortic lymphadenopathy with lake mass which is slightly larger than the previous study. A right hydronephrotic changes and hydroureter. Multilevel disc bulges with variable degrees of intervertebral foraminal narrowing. Reviewed, dictated and finalized at location A. IMPRESSION: Para-aortic lymphadenopathy with lake mass which is slightly larger than the p revious study. A right hydronephrotic changes and hydroureter. Multilevel disc bulges with variable degrees of intervertebral foraminal narrow ing.
--- OUTSIDE RECORDS SUMMARY | 2024-12-10 14:46 | XMS_ITS | Continuity of Care Document ---
Author Organization [facility] Address [address] [place] [address] Phone Care Team Providers Care Civil Project Engineer Name Role Phone Aaron Weathers MD Unavailable Unavailable Allergies, Adverse Reactions, Alerts Substance Reaction Status Criticality No Known Allergies Active No Inform ation Procedures Procedure Date PREV VISIT, NEW, AGE 40-64 Advance Directives Directive Yes / No Effective Date File Name No Information Encounters Encounter Description Practice Location Reason(s) For Visit Diagnoses Date Provider Providers Copied on Encounter PREV VISIT, NEW, AGE 40-64 [facility], [address] [place], [id number], [place] tel:[phone] [facility] Physical (chief complaint) Encntr for general adult medical exam w/o abnormal findings Jasiel Walker. [address], [facility] [place], [id number], [place]. tel:[phone] Referring Provider: Aaron Weathers, [address] [facility] [place], [id number]. tel:[phone] Family History Family Member Type Diagnosis Age At Onset Sister Problem (finding) on heart medic ine but no heart attack and no idea what she has Father Problem (finding) heart medicine of unknown type, no heart attack Mother Problem (finding) of ovarian CA (Cau se Of ) 41 Father Problem (finding) Alive and well Payers Payer name Insurance type Covered constitution party ID Authoriza tion(s) No Information Social [...] Mental Status Date Cognitive Assessment Orientation - Benedict ed to time, place, person, situation.
--- OUTSIDE RECORDS SUMMARY | 2024-12-10 14:46 | XMS_ITS | Clinical Summary ---
Author Organization [facility] Address [address] [place] [address] Care Team Providers Care Senior Litigation Paralegal Name Role Phone Denis Fan MD Primary Care Provider [phone] Source Comments [facility],non-owned Affiliates and Associated Physician Practices is amultiple site organization consisting of ambulatory clinics and hospital sitesin [place], [place], [place] and [place]. This disclosure is being madepursuant to the Care Everywhere program and may not contain all information available regarding this patient. Last updated 18.[facility] Allergies No known active allergies Medications * Be aware that medications may not be up to date on this document. Alwaysverify current medications with the patient. cyanocobalamin 100 MCG tablet Take 100 mcg by mouth once daily Active doxycycline monohydrate 100 MG capsule Take 1 capsule by mouth every 12 hours 2 Active lidocaine-priloc claus (Emla) 2.5-2.5 % cream Apply to port site 30 minutes before use 1 Active Multiple Vitamin (Daily Vites) TABS Take 1 tablet by mouth once daily Active nirmatrelvir-rit onavir renal (Paxlovid) USE DIRECTED 2 Active ondansetron (Zofran) 4 MG tablet Take 4 mg by mouth every 8 hours as needed for nausea and vomiting. 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 Gender Identity Not on file Sexual Orientation Not on file Last Filed Vital Signs Vital Sign Reading Time Taken Comments Blood Pressure 105/71 04/02/2022 11:26 AM CDT Pulse 91 04/02/2022 11:26 AM CDT Temperature 36.2 C (97.2 F) 04/02/2022 11:26 AM CDT Respiratory Rate - - Oxygen Saturation 99% 04/02/2022 11:26 AM CDT Inhaled Oxygen Concentration - - Weight 94.3 kg (208 lb) 04/02/2022 11:26 AM CDT Height 180.3 cm (5' 11) 04/02/2022 11:26 AM CDT Body Mass Index [...] 2020 SCREENING FOR DIABETES 02/27/2022 COVID-19 VACCINE (1 - 2023-2 5 season) 2024 DEPRESSION SCREENING 07/15/2024 INFLUENZA VACCINE (Season Ended) 2025 HIB VACCINE Aged Out No longer eligi ble based on patient's age to complete this topic HPV VACCINE Aged Out No longer eligi ble based on patient's age to complete this topic MENINGOCOCCAL (Group B) VACC INE SHARED DECISION-MAKING Aged Out No longer eligibl e based on patient's age to complete this topic MENINGOCOCCAL GROUPS A/C/Y/W VACCINE Aged Out No longer eligible b ased on patient's age to complete this topic Insurance MEDICAID - [facility] MEDICAID - [place] Care Teams Senior Litigation Paralegal Relationship Specialty Start Date End Date Denis Fan MD [address] [facility] [address] [place] [address] PCP - General 02/27/22
--- OUTSIDE RECORDS SUMMARY | 2024-12-10 14:46 | XMS_ITS | Encounter Summary ---
Author Organization [facility] [employer] [facility] Address [address] [place] [address] Care Team Providers Care Senior Data Integration Developer Name Role Phone Dick Lugo MD Primary Care Provider [phone] Encounter Details Date Type Department Care Team (Late Contact Info) Description 12/07/2024 Orders Only [facility] Oncology and Hematology - [place] [address] [place] [address] Jose Guadalupe Arita MD [address] [place] [address] Malignant neoplasm of sigmoid colon (CMS/HCC) Social History Tobacco Use Types Packs/Day Years Used Date Smoking Tobacco: Former Cigarettes 0.3 10 1 08/28/2000 - 06/27/2011 Smokeless Tobacco: Never Alcohol Use Standard Drinks/Week Comments No 0 (1 standard drink = 0.6 oz pur e alcohol) Sex and Gender Information Value Date Recorded Sex Assigned at Not on file 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 Gender Identity Not on file Sexual Orientation Not on file documented as of this encounter Plan of Treatment Upcoming Encounters Date Type Department Care Team (Late st Contact Info) Description 12/25/2024 10:00 AM CDT Office Visit [facility] Oncology and Hematology - [place] [address] [place] [address] Jose Guadalupe Arita MD [address] [place] [address] documented as of this encounter Visit Diagnoses Diagnosis Malignant neoplasm of sigmoid colon (CMS/HCC) Malignant neoplasm of sigmoid colon documented in this encounter Care Teams Senior Data Integration Developer Relationship Specialty Start Date End Date Dick Lugo MD [address] [facility] 4 [place] [phone] PCP - General Internal Medicine 02/12/22 documented as of this encounter
--- OUTSIDE RECORDS SUMMARY | 2024-12-10 14:46 | XMS_ITS | Clinical Summary ---
Author Organization [facility] Address [address] [place] [address] Care Team Providers Care Oiler Helper Name Role Phone Dick Lugo MD Primary Care Provider [phone] Allergies No known active allergies Medications aspirin (ECOTRIN EC) 81 mg Tablet, Delayed Release (E.C.) Take 81 mg by mouth daily. Active traMADoL (ULTRAM) 50 mg tablet Take 50 mg by mouth every 6 hours as needed for Pain. 08/18/2024 Active ondansetron (ZOFRAN ODT) 8 mg Tablet, Rapid Dissolve Dissolve 1 tablet on top of tongue then swallow with saliva every 8 hours as needed for nausea or vomiting 30 Tablet 1 09/15/2024 Active lidocaine-prilo candelaria (EMLA) 2.5-2.5 % CreamIndication s:Malignant neoplasm of sigmoid colon (CMS/HCC) APPLY TO PORT SITE 30 MINS BEFORE USE 30 Gram 1 09/21/2024 Active Active Problems Problem Noted Date Diagnosed Date Malignant neoplasm of sigmoid colon 06/27/2018 Resolved Problems Problem Noted Date Diagnosed Date Resolved Date Colon cancer metastasized to liver 06/27/2018 06/27/2018 Encounters Date Type Department Care Team Description 12/08/2024 External Device Data ST[facility] ABSTRACTION Provider, Abstract 12/07/2024 Orders Only [facility] Oncology and Hematology - [place] [address] [address] Jose Guadalupe Arita MD Malignant neoplasm of sigmoid colon (CMS/HCC) 12/03/2024 External Device Data STL ABSTRACTION Provider, Abstract 12/03/2024 External Device Data STL ABSTRACTION Provider, Abstract 12/03/2024 External Device Data STL ABSTRACTION Provider, Abstract 12/02/2024 External Device Data STL ABSTRACTION Provider, Abstract 12/01/2024 External Device Data STL ABSTRACTION Provider, Abstract 12/01/2024 Orders Only [facility] Oncology and Hematology - [place] [address] [place] [id number] Jose Guadalupe Arita MD 11/27/2024 11:00 AM CDT Office Visit [facility] Oncology and Hematology - [place] [address] [place] [id number] Jose Guadalupe Arita MD Malignant neoplasm of sigmoid colon (CMS/HCC) (Primary Dx) 11/23/2024 Orders Only [facility] Oncology and Hematology - [place] [address] [place] [id number] Jose Guadalupe Arita MD Malignant neoplasm of sigmoid colon (CMS/HCC) 11/17/2024 Orders Only [facility] Oncology and Hematology - [place] [address] [place] [address] Jose Guadalupe Arita MD 11/09/2024 Orders Only [facility] Oncology and Hematology - [place] [address] [place] [phone] Jose Guadalupe Arita MD Malignant neoplasm of sigmoid colon (CMS/HCC) 11/02/2024 Orders Only [facility] Oncology and Hematology - [place] [address] [place] [address] Jose Guadalupe Arita MD 10/30/2024 9:30 AM CDT Office Visit [facility] Oncology and Hematology - [place] [address] [place] [address] Jose Guadalupe Arita MD Malignant neoplasm of sigmoid colon (CMS/HCC) (Primary Dx) 10/26/2024 Orders Only [facility] Oncology and Hematology - [place] [address] [place] [phone] Jose Guadalupe Arita MD Malignant neoplasm of sigmoid colon (CMS/HCC) 10/20/2024 Orders Only [facility] Oncology and Hematology [facility] [address] [place] [address] Jose Guadalupe Arita MD 10/12/2024 Orders Only [facility] Oncology and Hematology - [place] [address] [place] [address] Jose Guadalupe Arita MD Malignant neoplasm of sigmoid colon (CMS/HCC) 10/06/2024 Abstract [facility] Oncology and Hematology [facility] [address] [place] [address] Jose Guadalupe Arita MD 10/02/2024 11:00 AM CDT Office Visit [facility]cology [facility] Hematology [facility] [address] [place] [address] Jose Guadalupe Arita MD Malignant neoplasm of sigmoid colon (CMS/HCC) (Primary Dx) 10/02/2024 Orders Only [facility] Oncology and Hematology [facility] [address] [place] [address] Jose Guadalupe Arita MD 09/30/2024 External Device Data STL ABSTRACTION Provider, Abstract 09/28/2024 Orders Only [facility] Oncology and Hematology [facility] [address] [place] [address] Jose Guadalupe Arita MD Malignant neoplasm of sigmoid colon (CMS/HCC) 09/22/2024 External Device Data STL ABSTRACTION Provider, Abstract 09/22/2024 External Device Data STL ABSTRACTION Provider, Abstract 09/19/2024 External Device Data STL ABSTRACTION Provider, Abstract 09/19/2024 Refill [facility] Oncology and Hematology [facility] [address] [place] [address] Jose Guadalupe Arita MD Malignant neoplasm of sigmoid colon (CMS/HCC) 09/18/2024 External Device Data STL ABSTRACTION Provider, Abstract 09/18/2024 Orders Only [facility] Oncology and Hematology - [place] [address] [place] [address] Jose Guadalupe Arita MD 09/17/2024 Orders Only [facility] Oncology and Hematology - [place] [address] [place] [address] Jose Guadalupe Arita MD Malignant neoplasm of sigmoid colon (CMS/HCC) (Primary Dx) 09/15/2024 External Device Data STL ABSTRACTION Provider, Abstract 09/15/2024 Refill [facility] Oncology and Hematology - [place] [address] [place] [address] Jose Guadalupe Arita MD from Last 3 Months Family History Medical [...] on file 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 Gender Identity Not on file Sexual Orientation Not on file Last Filed Vital Signs Vital Sign Reading Time Taken Comments Blood Pressure 122/76 11/27/2024 11:00 AM CDT Pulse 101 11/27/2024 11:00 AM CDT Temperature 36.3 C (97.4 F) 11/27/2024 11:00 AM CDT Respiratory Rate 15 11/27/2024 11:00 AM CDT Oxygen Saturation 98% 11/27/2024 11:00 AM CDT Inhaled Oxygen Concentration - - Weight 96.6 kg (213 lb) 11/27/2024 11:00 AM CDT Height 180.3 cm (5' 11) 03/21/2023 8:33 AM CDT Body Mass Index 29.71 03/21/2023 8:33 AM CDT Plan of Treatment Upcoming Encounters Date Type Department Care Team (Late st Contact Info) Description 12/25/2024 10:00 AM CDT Office Visit [facility] Oncology and Hematology - [place] [address] [facility] [address] [place] [address] Jose Guadalupe Arita MD [address] [facility] [address] [place] [address] Health Maintenance Due Date Last Done Comments Pre-Diabetes and Diabetes Screening 1970 DTAP/TDAP/TD VACCINES (1 - Tdap) 1989 HEPATITIS B VACCINES (1 of 3 - 19+ 3-dose series) 08/16 Traditional Medicare (ACO) Annual Wellness Visit 09/10 ZOSTER VACCINE (1 of 2) 2020 INFLUENZA VACCINE (#1) 2024 Abdominal Aortic Aneurysm (AAA) Screening Completed 06/16/2018 Procedures Procedure Name Priority Date/Time Associated Diagnosis Comments COMPREHENSIVE METABOLIC PANEL Routine 11/27/2024 4:22 PM CDT BASIC METABOLIC PANEL Routine 11/27/2024 12:16 PM CDT CBC WITH DIFFERENTIAL Routine 11/27/2024 12:10 PM CDT BASIC METABOLIC PANEL Routine 11/13/2024 3:10 PM CDT CBC WITH DIFFERENTIAL Routine 11/13/2024 3:09 PM CDT COMPREHENSIVE METABOLIC PANEL Routine 10/30/2024 12:19 PM CDT BASIC METABOLIC PANEL Routine 10/30/2024 11:04 AM CDT BASIC METABOLIC PANEL Routine 10/16/2024 11:46 AM CDT COMPREHENSIVE METABOLIC PANEL Routine 10/16/2024 11:44 AM CDT CBC WITH DIFFERENTIAL Routine 10/02/2024 12:57 PM CDT COMPREHENSIVE METABOLIC PANEL Routine 09/18/2024 1:[address] ABDOMEN PELVIS WO CONTRAST Routine 06/16/2018 from Last 3 Months or Most Recently Relevant to Health Maintenance Results * COMPREHENSIVE METABOLIC PANEL (11/27/2024 4:22 PM CDT) Only the most recent of4 resultswithin the time period is included. Blood us Jose Guadalupe Arita MD CHEMISTRY ORDERABLES Final Resu lt * BASIC METABOLIC PANEL (11/27/2024 12:16 PM CDT) Only the most recent of4 resultswithin the time period is included. Blood Jose Guadalupe Arita MD CHEMISTRY ORDERABLES Final Resu lt * CBC WITH DIFFERENTIAL (11/27/2024 12:10 PM CDT) Only the most recent of3 resultswithin the time period is included. Blood Jose Guadalupe Arita MD HEMATOLOGY ORDERABLES Final Res ult * CT ABDOMEN PELVIS WO CONTRAST (06/16/2018) Anatomical Region Laterality Modality Abdomen Computed Tomogra phy Abstract Provider CT ORDERABLES Final Result from Last 3 Months or Most Recently Relevant to Health Maintenance Insurance Member Subscriber Plan / Payer (Ef fective 2023-Present) Name:Joaquin Petersen Relation to Subscriber:Self Name:Joaquin Petersen Payer ID:Not on file Group ID:Not on file Type:Medicaid Address: [address] [id number] MEDICARE PART A AND B Care Teams Oiler Helper Relationship Specialty Start Date End Date Dick Lugo MD [address] [facility] 4 [place] [address] PCP - General Internal Medicine 02/12/22
--- OUTSIDE RECORDS SUMMARY | 2024-12-10 14:46 | XMS_ITS | Encounter Summary ---
Author Organization [facility] Address [address] [place] [address] Care Team Providers Care Lute Packer Or Applier Name Role Phone Dick Lugo MD Primary Care Provider [phone] Encounter Details Date Type Department Care Team (Late st Contact Info) Description 12/08/2024 External Device Data ST[facility] ABSTRACTION Provider, Abstract NO ADDRESS ON FILE Social History Tobacco Use Types Packs/Day Years Used Date Smoking Tobacco: Former Cigarettes 0.3 10 1 08/28/2000 - 06/27/2011 Smokeless Tobacco: Never Alcohol Use Standard Drinks/Week Comments No 0 (1 standard drink = 0.6 oz pur e alcohol) Sex and Gender Information Value Date Recorded Sex Assigned at Not on file 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 Gender Identity Not on file Sexual Orientation Not on file documented as of this encounter Plan of Treatment Upcoming Encounters Date Type Department Care Team (Late st Contact Info) Description 12/25/2024 10:00 AM CDT Office Visit [facility] Oncology and Hematology - [place] [address] [facility] [address] [place] [address] Jose Guadalupe Arita MD [address] [facility] [address] [place] [address] documented as of this encounter Visit Diagnoses Not on filedocumented in this encounter Care Teams Lute Packer Or Applier Relationship Specialty Start Date End Date Dick Lugo MD [address] [facility] 4 [place] [address] PCP - General Internal Medicine 02/12/22 documented as of this encounter
[2024-12-10 15:00] VITALS: BP 119/77; PULSE 110; RESP 18; TEMP 36.1; O2SAT 100
--- NOTE | 2024-12-10 16:18 | ED_ITS ---
HPI - Back Pain/Injury General Chief Complaint: Back Pain/Injury <Ofelia George PA-C - Last Filed: 12/11/24 10:58> Stated Complaint: R back pain that radiates down the R leg <Ofelia George PA-C - Last Filed: 12/11/24 10:58> Time Seen by Provider: 12/10/24 16:18 <Ofelia George PA-C - Last Filed: 12/11/24 10:58> Focused HPI: This is a 54 year old male that presents to the ER for right sided low back pain. Radiating into the leg. Ongoing over the last week. No recent injuries or trauma. He is currently being treated with chemotherapy for colon cancer. GENERAL: Chronically ill-appearing, well-nourished, and in no acute distress. HEAD: Normocephalic, atraumatic. CHEST: Clear to auscultation. ?No respiratory distress. HEART: Regular rate and rhythm.? NEURO: ?Alert and oriented x3. Patient screened in triage and initial orders placed.? ?Additional care and disposition to be based upon?diagnostic testing and treatment. <Ofelia George PA-C - Last Filed: 12/11/24 10:58> History of Present Illness HPI Narrative: This is a 54-year-old male history of colon cancer being treated with chemotherapy presenting for right-sided back pain. Pain is in the right lower back and radiates down the side of his thigh. Does not extend past the knee. Is not associated with weakness. It is not associated with saddle anesthesia, bowel incontinence urinary retention or weakness daily lower extremities. Patient has a history of sciatica. No traumatic events. No fevers. No other symptoms. <Dylan Duran MD - Last Filed: 12/10/24 20:43> Related Data Home Medications: Home Medications ?Medication ?Instructions ?Recorded ?Confirmed ?Last Taken ?Type cyanocobalamin (vitamin B-12) 1,000 mcg PO DAILY 04/28/19 10/10/23 Unknown History 1,000 mcg capsule ferrous sulfate 324 mg (65 mg 324 mg PO DAILY 04/28/19 10/10/23 Unknown History iron) tablet,delayed release ondansetron HCl 4 mg tablet 4 mg PO Q8H PRN Nausea 04/28/19 10/10/23 Unknown History aspirin 81 mg tablet,delayed 81 mg PO DAILY 09/14/19 10/10/23 Unknown History release (Adult Low Dose Aspirin) potassium chloride 10 mEq 20 meq PO DAILY 04/19/20 10/10/23 Unknown History tablet,extended release (Klor-Con) pediatric multivitamin no.76 1 tablet PO DAILY 04/21/20 10/10/23 Unknown History (Flintstones Complete chewable tablet) lidocaine-prilocaine 2.5 %-2.5 % See Rx Instructions .Route .COMPLEX 11/08/21 10/10/23 Unknown History topical cream <Ofelia George PA-C - Last Filed: 12/11/24 10:58> Allergies/Adverse Reactions: Allergies Allergy/AdvReac Type Severity Reaction Status Date / Time No Known Allergies Allergy Verified 12/11/24 10:46 <Ofelia George PA-C - Last Filed: 12/11/24 10:58> Review of Systems 2 Review of Systems: All systems reviewed & are unremarkable except as noted in HPI and below <Ofelia George PA-C - Last Filed: 12/11/24 10:58> [facility] Past Medical History Medical History: Medical History Malignant neoplasm of sigmoid colon <Ofelia George PA-C - Last Filed: 12/11/24 10:58> Surgical History Surgical History: Surgical History No significant past surgical history <Ofelia George PA-C - Last Filed: 12/11/24 10:58> Social History Social History: Social History Smoking status: Never smoker Alcohol intake: never Substance use: never <Ofelia George PA-C - Last Filed: 12/11/24 10:58> Exam 2 Narrative: APPEARANCE: No apparent distress. Head: atraumatic. EYES: EOMI, NOSE: Atraumatic NECK /back, no midline lumbar tenderness RESPIRATORY: No increased rate of breathing clear to auscultation CARDIOVASCULAR: RRR, ABDOMINAL: Non-distended MUSCULOSKELETAl: No obvious deformities NEURO: Alert.Cranial nerves 2-12 grossly intact. Sensation light touch, motor function cerebellar function intact for 4 extremities. Gait exam was normal. No saddle anesthesia SKIN:: Warm, dry. Normal color PSYCHIATRIC: Normal affect <Dylan Duran MD - Last Filed: 12/10/24 20:43> Course Vital Signs Vital signs: Vital Signs Temperature 97.0 F L 12/10/24 15:00 Pulse Rate 110 H 12/10/24 15:00 Respiratory Rate 18 12/10/24 15:00 Blood Pressure 119/77 12/10/24 15:00 Pulse Oximetry 100 12/10/24 15:00 Temperature 97.0 F L 12/10/24 15:00 Pulse Rate 110 H 12/10/24 15:00 Respiratory Rate 18 12/10/24 15:00 Blood Pressure 119/77 12/10/24 15:00 Pulse Oximetry 100 12/10/24 15:00 <Ofelia George PA-C - Last Filed: 12/11/24 10:58> Vital Signs Temperature 97.0 F L 12/10/24 15:00 Pulse Rate 110 H 12/10/24 15:00 Respiratory Rate 18 12/10/24 15:00 Blood Pressure 119/77 12/10/24 15:00 Pulse Oximetry 100 12/10/24 15:00 Temperature 97.0 F L 12/10/24 15:00 Pulse Rate 110 H 12/10/24 15:00 Respiratory Rate 18 12/10/24 15:00 Blood Pressure 119/77 12/10/24 15:00 Pulse Oximetry 100 12/10/24 15:00 <Dylan Duran MD - Last Filed: 12/10/24 20:43> MDM - Back Pain/Injury MDM Narrative Medical decision making narrative: -Course:54-year-old male presenting lower back pain rating down his thigh. CT lumbar spine did not reveal any lumbar pathology. Showed hydronephrotic changes the right kidney but kidney function is at baseline. Presentation is consistent with sciatica which patient has had in the past. He will be treated with NSAIDs and muscle relaxers. urine had 6-10 white blood cells but the patient does not have any urinary symptoms. No CVA tenderness or fevers. Will await culture results. Patient discharged with return precautions. -DDX includes but is not limited to: Sciatica, muscle strain, muscle spasm, metastatic disease <Dylan Duran MD - Last Filed: 12/10/24 20:43> Lab Data Result diagrams: 12/10/24 19:18 12/10/24 18:53 <Ofelia George PA-C - Last Filed: 12/11/24 10:58> Labs: Lab Results 12/10/24 12/10/24 12/10/24 Range/Units 18:53 19:18 19:25 WBC 7.0 (4.5-10.0) K/mm3 RBC 3.69 L (4.6-6.20) M/mm3 Hgb 10.2 L (14.0-18.0) g/dL Hct 32.3 L (42.0-52.0) % MCV 87.5 (80-100) fl MCH 27.6 (26-34) pg MCHC 31.6 L (32-36) g/dl RDW 15.9 H (11.5-14.5) % Plt Count 411 H (150-375) k/mm3 MPV 8.7 (7.4-10.4) fl Immature Gran % (Auto) 0.3 (0-0.5) % Neut % (Auto) 70.2 (45.5-73.1) % Lymph % (Auto) 18.0 L (18.3-44.2) % [place] % (Auto) 10.7 H (2.6-8.5) % Eos % (Auto) 0.4 (0-4.4) % Baso % (Auto) 0.4 (0.2-1.2) % Lymph # (Auto) 1.26 (0.9-3.2) K/mm3 [place] # (Auto) 0.8 H (0.1-0.6) K/mm3 Eos # (Auto) 0.0 (0-0.3) K/mm3 Baso # (Auto) 0.0 (0.0-0.1) K/mm3 Abs Immat Gran (auto) 0.02 (0.00-0.031) K/mm3 Absolute Neuts (auto) 4.9 (1.3-6.7) K/mm3 Absolute Nucleated RBC 0.000 (0.0-0.012) K/mm3 Nucleated RBC % 0.0 (0.0-0.2) % Sodium 139 (137-145) mmol/L Potassium 4.1 (3.4-5.0) mmol/L Chloride 104 (98-107) mmol/L Carbon Dioxide 26 (22-30) mmol/L Anion Gap 9 (4-12) mmol/L BUN 15 (9-20) mg/dL Creatinine 1.33 H (0.7-1.3) mg/dL Estim Creat Clear Calc 61 ml/min Estimated GFR 56 L (59 - ) Glucose 105 (65-110) mg/dL Lactic Acid 0.7 (0.7-2.0) mmol/L Calcium 9.1 (8.4-10.2) mg/dL Total Bilirubin 0.5 (0.2-1.3) mg/dL AST 27 (17-59) U/L ALT 14 (6-50) U/L Alkaline Phosphatase 81 (38-126) U/L Total Protein 8.0 (6.3-8.2) g/dL Albumin 4.2 (3.5-5.1) g/dL Urine Color Yellow (Yellow) Urine Appearance Clear (Clear) Urine pH 6.0 (5.0-9.0) Ur Specific [place] 1.024 (1.001-1.035) Urine Protein 1+ H (Negative) mg/dL Urine Glucose (UA) Negative (Negative) mg/dL Urine Ketones Trace H (Negative) mg/dL Ur Blood (Man) Negative (Negative) Urine Nitrate Negative (Negative) Urine Bilirubin Negative (Negative) Urine Urobilinogen 1.0 (<2.0) mg/dL Leukocyte Esterase Rfl Trace H (Negative) SHARIF/UL Urine RBC 0-2 (0-2) /hpf Urine WBC 6-10 H (0-3) /hpf Ur Squamous Epith Cells None seen (Few) /hpf Urine Bacteria None seen /hpf Urine Casts 0-2 <Ofelia George PA-C - Last Filed: 12/11/24 10:58> Lab Results 12/10/24 12/10/24 12/10/24 Range/Units 18:53 19:18 19:25 WBC 7.0 (4.5-10.0) K/mm3 RBC 3.69 L (4.6-6.20) M/mm3 Hgb 10.2 L (14.0-18.0) g/dL Hct 32.3 L (42.0-52.0) % MCV 87.5 (80-100) fl MCH 27.6 (26-34) pg MCHC 31.6 L (32-36) g/dl RDW 15.9 H (11.5-14.5) % Plt Count 411 H (150-375) k/mm3 MPV 8.7 (7.4-10.4) fl Immature Gran % (Auto) 0.3 (0-0.5) % Neut % (Auto) 70.2 (45.5-73.1) % Lymph % (Auto) 18.0 L (18.3-44.2) % [place] % (Auto) 10.7 H (2.6-8.5) % Eos % (Auto) 0.4 (0-4.4) % Baso % (Auto) 0.4 (0.2-1.2) % Lymph # (Auto) 1.26 (0.9-3.2) K/mm3 [place] # (Auto) 0.8 H (0.1-0.6) K/mm3 Eos # (Auto) 0.0 (0-0.3) K/mm3 Baso # (Auto) 0.0 (0.0-0.1) K/mm3 Abs Immat Gran (auto) 0.02 (0.00-0.031) K/mm3 Absolute Neuts (auto) 4.9 (1.3-6.7) K/mm3 Absolute Nucleated RBC 0.000 (0.0-0.012) K/mm3 Nucleated RBC % 0.0 (0.0-0.2) % Sodium 139 (137-145) mmol/L Potassium 4.1 (3.4-5.0) mmol/L Chloride 104 (98-107) mmol/L Carbon Dioxide 26 (22-30) mmol/L Anion Gap 9 (4-12) mmol/L BUN 15 (9-20) mg/dL Creatinine 1.33 H (0.7-1.3) mg/dL Estim Creat Clear Calc 61 ml/min Estimated GFR 56 L (59 - ) Glucose 105 (65-110) mg/dL Lactic Acid 0.7 (0.7-2.0) mmol/L Calcium 9.1 (8.4-10.2) mg/dL Total Bilirubin 0.5 (0.2-1.3) mg/dL AST 27 (17-59) U/L ALT 14 (6-50) U/L Alkaline Phosphatase 81 (38-126) U/L Total Protein 8.0 (6.3-8.2) g/dL Albumin 4.2 (3.5-5.1) g/dL Urine Color Yellow (Yellow) Urine Appearance Clear (Clear) Urine pH 6.0 (5.0-9.0) Ur Specific [place] 1.024 (1.001-1.035) Urine Protein 1+ H (Negative) mg/dL Urine Glucose (UA) Negative (Negative) mg/dL Urine Ketones Trace H (Negative) mg/dL Ur Blood (Man) Negative (Negative) Urine Nitrate Negative (Negative) Urine Bilirubin Negative (Negative) Urine Urobilinogen 1.0 (<2.0) mg/dL Leukocyte Esterase Rfl Trace H (Negative) SHARIF/UL Urine RBC 0-2 (0-2) /hpf Urine WBC 6-10 H (0-3) /hpf Ur Squamous Epith Cells None seen (Few) /hpf Urine Bacteria None seen /hpf Urine Casts 0-2 <Dylan Duran MD - Last Filed: 12/10/24 20:43> Imaging Data Radiologist's impression: ITS Impressions Lumbar Spine CT 12/10/24 17:26 IMPRESSION: Para-aortic lymphadenopathy with lake mass which is slightly larger than the previous study. A right hydronephrotic changes and hydroureter. Multilevel disc bulges with variable degrees of intervertebral foraminal narrowing. <Ofelia George PA-C - Last Filed: 12/11/24 10:58> Critical Care Time Critical Care Time Critical Care Time: No <Ofelia George PA-C - Last Filed: 12/11/24 10:58> Discharge Plan Discharge Clinical Impression: Sciatica Qualifiers: Laterality: right Qualified Code(s): M54.31 - Sciatica, right side <Ofelia George PA-C - Last Filed: 12/11/24 10:58> Patient Disposition: Home <EZEKIEL Wong Last Filed: 12/11/24 10:58> Condition: Stable <EZEKIEL Wong Last Filed: 12/11/24 10:58> Instructions: Antibiotic Form, Back Pain (ED) <EZEKIEL Wong Last Filed: 12/11/24 10:58> Additional Instructions: You were seen in the emergency department for back pain/sciatica. Please use Tylenol Robaxin for symptoms. Please follow-up with primary care listed below. If you develop any new or worsening symptoms such as numbness to your genitals, weakness to lower extremities urinary retention or bowel incontinence please return to the ED for re-evaluation. If you develop pain on urination, increased urinary urgency or frequency please return to the ED immediately <EZEKIEL Wong Last Filed: 12/11/24 10:58> Patient Language: Paraguayan <EZEKIEL Wong Last Filed: 12/11/24 10:58> Prescriptions: New acetaminophen 500 mg tablet 1,000 mg PO TID PRN (Reason: ashley) 7 Days Qty: 42 0RF methocarbamol 750 mg tablet 1,500 mg PO TID Qty: 42 0RF No Action cyanocobalamin (vitamin B-12) 1,000 mcg Capsule 1,000 mcg PO DAILY ferrous sulfate 324 mg (65 mg iron) Tablet,Delayed Release (Dr/Ec) 324 mg PO DAILY ondansetron HCl 4 mg Tablet 4 mg PO Q8H PRN (Reason: Nausea) aspirin [Adult Low Dose Aspirin] 81 mg Tablet,Delayed Release (Dr/Ec) 81 mg PO DAILY Patient Comments: ............ potassium chloride [Klor-Con 10] 10 mEq Tablet Extended Release 20 meq PO DAILY Flintstones Complete Tablet,Chewable 1 tablet PO DAILY lidocaine-prilocaine 2.5-2.5 % cream See Rx Instructions .ROUTE .COMPLEX Rx Instructions: Apply to port site 30 minutes before treatment <EZEKIEL Wogn Last Filed: 12/11/24 10:58> Follow-up/Referrals: Denis Fan MD [Primary Care Provider] - 1 Week (Back pain ) <Ofelia George PA-C - Last Filed: 12/11/24 10:58>
[2024-12-10] MEDS: ACETAMINOPHEN 500 MG TABLET 1000 MG PO (18:44)
[2024-12-10] MEDS: methocarbamoL 750 MG TABLET 1500 MG PO (18:44)
[2024-12-10] MEDS: oxyCODONE HCL (*CRX) 5 MG TAB IR PO (18:44)
--- OUTSIDE RECORDS SUMMARY | 2024-12-10 19:08 | XMS_ITS | Continuity of Care Document ---
Author Organization [facility] Address [address] [place] [address] [place] [address] Phone Care Team Providers Care Metal Bonding Helper Name Role Phone Aaron Weathers MD Unavailable Unavailable Allergies, Adverse Reactions, Alerts Substance Reaction Status Criticality No Known Allergies Active No Inform ation Procedures Procedure Date PREV VISIT, NEW, AGE 40-64 Advance Directives Directive Yes / No Effective Date File Name No Information Encounters Encounter Description Practice Location Reason(s) For Visit Diagnoses Date Provider Providers Copied on Encounter PREV VISIT, NEW, AGE 40-64 [facility], [address] [place], [place], [id number], [place] tel:[phone] [facility] Physical (chief complaint) Encntr for general adult medical exam w/o abnormal findings Jasiel Walker. [address], [facility] [place], [place], [id number], [place]. tel:[phone] Referring Provider: Aaron Weathers, [address] [facility] [place], [place], [id number]. tel:[phone] Family History Family Member Type Diagnosis Age At Onset Sister Problem (finding) on heart medic ine but no heart attack and no idea what she has Father Problem (finding) heart medicine of unknown type, no heart attack Mother Problem (finding) of ovarian CA (Cau se Of ) 41 Father Problem (finding) Alive and well Payers Payer name Insurance type Covered green party ID Authoriza tion(s) No Information Social [...] Mental Status Date Cognitive Assessment Orientation - [place] ed to time, place, person, situation.
--- OUTSIDE RECORDS SUMMARY | 2024-12-10 19:08 | XMS_ITS | Clinical Summary ---
Author Organization [facility] [employer] Address [address] [place] [address] Care Team Providers Care Tool Checker Name Role Phone Denis Fan MD Primary Care Provider [phone] Source Comments [facility] [employer]non-owned Affiliates and Associated Physician Practices is amultiple site organization consisting of ambulatory clinics and hospital sitesin [place], [place], [place] and [place]. This disclosure is being madepursuant to the Care Everywhere program and may not contain all information available regarding this patient. Last updated 18.[facility] [employer] 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
--- OUTSIDE RECORDS SUMMARY | 2024-12-10 19:08 | XMS_ITS | Encounter Summary ---
Author Organization [facility] Address 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 Gender Identity Not on file Sexual Orientation Not on file documented as of this encounter Plan of Treatment Upcoming Encounters Date Type Department Care Team (Late st Contact Info) Description 12/25/2024 10:00 AM CDT Office Visit [facility] Oncology and Hematology - [place] [address] [facility] [address] [place] [address] Jose Guadalupe Arita MD [address] [facility] [address] [place] [address] documented as of this encounter Visit Diagnoses Not on filedocumented in this encounter Care Teams Geophysicist Relationship Specialty Start Date End Date Dick Lugo MD [address] [facility] [address] [place] [address] PCP - General Internal Medicine 02/12/22 documented as of this encounter
--- OUTSIDE RECORDS SUMMARY | 2024-12-10 19:08 | XMS_ITS | Encounter Summary ---
Author Organization [facility] [employer] [facility] Address [address] [place] [address] Care Team Providers Care Nut Sorter Name Role Phone Dick Lugo MD Primary Care Provider [phone] Encounter Details Date Type Department Care Team (Late Contact Info) Description 12/07/2024 Orders Only [facility] Oncology and Hematology - [place] [address] [place] [address] Jose Guadalupe Arita MD [address] [place] [address] Malignant neoplasm of sigmoid colon (CMS/HCC) Social History Tobacco Use Types Packs/Day Years Used Date Smoking Tobacco: Former Cigarettes 0.3 10 1 08/28/2000 - 06/27/2011 Smokeless Tobacco: Never Alcohol Use Standard Drinks/Week Comments No 0 (1 standard drink = 0.6 oz pur e alcohol) Sex and Gender Information Value Date Recorded Sex Assigned at Not on file 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 Gender Identity Not on file Sexual Orientation Not on file documented as of this encounter Plan of Treatment Upcoming Encounters Date Type Department Care Team (Late st Contact Info) Description 12/25/2024 10:00 AM CDT Office Visit [facility] Oncology and Hematology - [place] [address] [place] [address] Jose Guadalupe Arita MD [address] [place] [address] documented as of this encounter Visit Diagnoses Diagnosis Malignant neoplasm of sigmoid colon (CMS/HCC) Malignant neoplasm of sigmoid colon documented in this encounter Care Teams Nut Sorter Relationship Specialty Start Date End Date Dick Lugo MD [address] [facility] [address] [place] [phone] PCP - General Internal Medicine 02/12/22 documented as of this encounter
--- OUTSIDE RECORDS SUMMARY | 2024-12-10 19:09 | XMS_ITS | Clinical Summary ---
Author Organization [facility] Address [address] [place] [address] Care Team Providers Care Tai Chi Instructor Name Role Phone Dick Lugo MD Primary Care Provider [phone] Allergies No known active allergies Medications aspirin [...] STL ABSTRACTION Provider, Abstract 12/07/2024 Orders Only [facility] Oncology and Hematology - [place] [address] [address] Jose Guadalupe Arita MD Malignant neoplasm of sigmoid colon (CMS/HCC) 12/03/2024 External Device Data STL ABSTRACTION Provider, Abstract 12/03/2024 External Device Data STL ABSTRACTION Provider, Abstract 12/03/2024 External Device Data STL ABSTRACTION Provider, Abstract 12/02/2024 External Device Data STL ABSTRACTION Provider, Abstract 12/01/2024 External Device Data STL ABSTRACTION Provider, Abstract 12/01/2024 Orders Only [facility] Oncology and Hematology - [place] [address] [place] [id number] Jose Guadalupe Arita MD 11/27/2024 11:00 AM CDT Office Visit [facility] Oncology and Hematology - [place] [address] [place] [id number] Jose Guadalupe Arita MD Malignant neoplasm of sigmoid colon (CMS/HCC) (Primary Dx) 11/23/2024 Orders Only [facility] Oncology and Hematology - [place] [address] [place] [address] Jose Guadalupe Arita MD Malignant neoplasm of sigmoid colon (CMS/HCC) 11/17/2024 Orders Only [facility] Oncology and Hematology - [place] [address] [place] [address] Jose Guadalupe Arita MD 11/09/2024 Orders Only [facility] Oncology and Hematology - [place] [address] [place] [address] Jose Guadalupe Arita MD Malignant neoplasm of sigmoid colon (CMS/HCC) 11/02/2024 Orders Only [facility] Oncology and Hematology - [place] [address] [place] [id number] Jose Guadalupe Arita MD 10/30/2024 9:30 AM CDT Office Visit [facility] Oncology and Hematology - [place] [address] [place] [address] Jose Guadalupe Arita MD Malignant neoplasm of sigmoid colon (CMS/HCC) (Primary Dx) 10/26/2024 Orders Only [facility] Oncology and Hematology - [place] [address] [place] [address] Jose Guadalupe Arita MD Malignant neoplasm of sigmoid colon (CMS/HCC) 10/20/2024 Orders Only [facility] Oncology and Hematology [facility] [address] [place] [address] Jose Guadalupe Arita MD 10/12/2024 Orders Only [facility] Oncology and Hematology - [place] [address] [place] [address] Jose Guadalupe Arita MD Malignant neoplasm of sigmoid colon (CMS/HCC) 10/06/2024 Abstract [facility] Oncology and Hematology [facility] [address] [place] [address] Jose Guadalupe Arita MD 10/02/2024 11:00 AM CDT Office Visit [facility] Oncology [facility] Hematology [facility] [address] [place] [address] Jose Guadalupe Arita MD Malignant neoplasm of sigmoid colon (CMS/HCC) (Primary Dx) 10/02/2024 Orders Only [facility] Oncology and Hematology [facility] [address] [place] [address] Jose Guadalupe Arita MD 09/30/2024 External Device Data STL ABSTRACTION Provider, Abstract 09/28/2024 Orders Only [facility] Oncology and Hematology [facility] [address] [place] [address] Jose Guadalupe Arita MD Malignant neoplasm of sigmoid colon (CMS/HCC) 09/22/2024 External Device Data STL ABSTRACTION Provider, Abstract 09/22/2024 External Device Data STL ABSTRACTION Provider, Abstract 09/19/2024 External Device Data STL ABSTRACTION Provider, Abstract 09/19/2024 Refill [facility] Oncology and Hematology [facility] [address] [place] [address] Jose Guadalupe Arita MD Malignant neoplasm of sigmoid colon (CMS/HCC) 09/18/2024 External Device Data STL ABSTRACTION Provider, Abstract 09/18/2024 Orders Only [facility] Oncology and Hematology - [place] [address] [place] [address] Jose Guadalupe Arita MD 09/17/2024 Orders Only [facility] Oncology and Hematology - [place] [address] [place] [address] Jose Guadalupe Arita MD Malignant neoplasm of sigmoid colon (CMS/HCC) (Primary Dx) 09/15/2024 External Device Data STL ABSTRACTION Provider, Abstract 09/15/2024 Refill [facility] Oncology and Hematology - [place] [address] [place] [address] Jose Guadalupe Arita MD from Last 3 [...] on file 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 Blood oJse Guadalupe Arita MD HEMATOLOGY ORDERABLES Final Res [...] file Group ID:Not on file Type:Medicaid Address: [address] [id number] MEDICARE PART A AND B Care Teams Tai Chi Instructor Relationship Specialty Start Date End Date Dick Lugo MD [address] [facility] [address] [place] [address] PCP - General Internal Medicine 02/12/22
[2024-12-10 19:10] LABS: Lactic Acid Reflex 0.7 mmol/L (0.7-2.0)
[2024-12-10 19:11] LABS: Alanine Aminotransferase 14 U/L (6-50); Albumin Level 4.2 g/dL (3.5-5.1); Alkaline Phosphatase 81 U/L (38-126); Anion Gap 9 mmol/L (4-12); Aspartate Amino Transferase 27 U/L (17-59); Bilirubin,Total 0.5 mg/dL (0.2-1.3); Blood Urea Nitrogen 15 mg/dL (9-20); Calcium 9.1 mg/dL (8.4-10.2); Carbon Dioxide 26 mmol/L (22-30); Chloride 104 mmol/L (98-107); Estimated CRCL calculation 61 ml/min; Estimated Glomerular Filt Rate 56; Glucose 105 mg/dL (65-110); Potassium 4.1 mmol/L (3.4-5.0); Sodium 139 mmol/L (137-145)
[2024-12-10 19:37] LABS: Basophils Percent Auto 0.4 % (0.2-1.2); Eosinophils Percent Auto 0.4 % (0-4.4); Hematocrit 32.3 % (42.0-52.0); Hemoglobin 10.2 g/dL (14.0-18.0); Immature Granulocyte Absolute 0.02 K/mm3 (0.00-0.031); Immature Granulocyte Percent A 0.3 % (0-0.5); Lymphocytes Absolute Auto 1.26 K/mm3 (0.9-3.2); Mean Corpuscular HGB Conc 31.6 g/dl (32-36); Mean Corpuscular Hemoglobin 27.6 pg (26-34); Mean Corpuscular Volume 87.5 fl (80-100); Mean Platelet Volume 8.7 fl (7.4-10.4); Monocytes Absolute Auto 0.8 K/mm3 (0.1-0.6); Monocytes Percent Auto 10.7 % (2.6-8.5); Neutrophils Absolute Auto 4.9 K/mm3 (1.3-6.7); Neutrophils Percent Auto 70.2 % (45.5-73.1); Platelet Count Result 411 k/mm3 (150-375); Red Blood Count 3.69 M/mm3 (4.6-6.20); Red Cell Distribution Width 15.9 % (11.5-14.5)
[2024-12-10 20:26] LABS: Add Urine Microscopic? YES; Appearance Urine Clear (Clear); Bacteria Urine None Seen /hpf; Bilirubin Urine Negative (Negative); Blood Urine Negative (Negative); Color Urine Yellow (Yellow); Glucose Urine UA Negative (Negative); Ketones Urine Trace mg/dL (Negative); Leukocyte Esterase Ur Trace LEU/UL (Negative); Nitrate Urine Negative (Negative); Non Pathogenic Casts 0-2; Protein Urine 1+ mg/dL (Negative); RBC Urine 0-2 /hpf (0-2); Specific Grav Ur 1.024 (1.001-1.035); Squamous Epithelial Cell Urine None Seen /hpf (Few)
== END 2024-12-10 20:54 | disposition home or self-care (01) ==
PROVIDERS: Emergency Provider Emergency Medicine; PCP Emergency Medicine
DX: M54.41 Lumbago with sciatica, right side (principal); C18.9 Malignant neoplasm of colon, unspecified; Z79.60 Long term (current) use of unspecified immunomodulators and immunosuppressants; M51.369 Other intervertebral disc degeneration, lumbar region without mention of lumbar back pain or lower extremity pain; M48.061 Spinal stenosis, lumbar region without neurogenic claudication
CPT/HCPCS: 36415; 72131; 80053; 81001; 83605; 85025; 87086; 99284; A9270

== ENCOUNTER 2025-01-18 09:37 | Outpatient (CLI) | payer MEDICARE, SELFPAY ==
--- NOTE | ~2025-01-18 | CT_ITS ---
Clinical Indication: Colon cancer CT Scan of the Chest, Abdomen, and Pelvis with Contrast: Technique: Contiguous sections were acquired throughout the chest, abdomen, and pelvis after intraven ous administration of 100 cc of Omnipaque 350. Dose reduction technique was used on this scan by nitesh cole automated exposure control and iterative reconstruction technique. The dose-length product (DL P) was 1077.89 mGy-cm. Comparison: 08/18/2024 Findings: There is no evidence of any significant mediastinal, hilar or axillary lymphadenopathy. The mediastin al soft tissues appear normal. There is no evidence of pleural or pericardial effusion. The lungs are clear. No pulmonary nodules or infiltrates are noted. The liver, spleen, pancreas, gallbladder, adrenals and left kidney are within normal limits. No evid ence of aortic aneurysm. Extensive metastatic retroperitoneal lymphadenopathy is again present, portions of which are extensiv sangeetha calcified. There is extensive encasement of the right common iliac and external iliac vessels. Th ere is moderate to severe right hydroureteronephrosis related to impingement of the right ureter by t he metastatic retroperitoneal lesions at the mid right ureter. Overall extent of metastatic lymphaden opathy is mildly increased from prior exam. No bowel obstruction or bowel wall thickening. Rectosigmoid anastomosis present. There is no evidence to suggest acute appendicitis. Urinary bladder is unremarkable. No pelvic mass evident. No ascites. Impression: Extensive metastatic retroperitoneal lymphadenopathy is mildly increased in size/extent from prior ex am. Moderate to advanced right hydroureteronephrosis to the level of mid ureter, where there is impingeme nt/obstruction of the mid right ureter by the aforementioned metastatic lymphadenopathy. Reviewed, dictated and finalized at location . Impression: Extensive metastatic retroperitoneal lymphadenopathy is mildly increased in siz e/extent from prior exam. Moderate to advanced right hydroureteronephrosis to the level of mid ureter, wh ere there is impingement/obstruction of the mid right ureter by the aforementio leilani metastatic lymphadenopathy.
--- OUTSIDE RECORDS SUMMARY | 2025-01-18 09:48 | XMS_ITS | Encounter Summary ---
Author Organization [facility] ([facility] [employer] [facility] Address [address] [place] [address] Care Team Providers Care Cookie Breaker Name Role Phone Dick Lugo MD Primary Care Provider Encounter Details Date Type Department Care Team (Late Contact Info) Description 01/18/2025 Orders Only [facility] Oncology and Hematology - [place] [address] [place] [address] Jose Guadalupe Arita MD [address] [place] [address] Malignant neoplasm of sigmoid colon (CMS/HCC) Social History Tobacco Use Types Packs/Day Years Used Date Smoking Tobacco: Former Cigarettes 0.3 10 1 08/28/2000 - 06/27/2011 Smokeless Tobacco: Never Alcohol Use Standard Drinks/Week Comments No 0 (1 standard drink = 0.6 oz pur e alcohol) Sex and Gender Information Value Date Recorded Sex Assigned at Not on file 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 Gender Identity Not on file Sexual Orientation Not on file documented as of this encounter Plan of Treatment Upcoming Encounters Date Type Department Care Team (Late st Contact Info) Description 01/22/2025 9:00 AM CDT Office Visit [facility] Oncology and Hematology - [place] [address] [place] [address] Jose Guadalupe Arita MD [address] [place] [address] documented as of this encounter Visit Diagnoses Diagnosis Malignant neoplasm of sigmoid colon (CMS/HCC) Malignant neoplasm of sigmoid colon documented in this encounter Care Teams Cookie Breaker Relationship Specialty Start Date End Date Dick Lugo MD [address] [facility] 4 [place] [id number] PCP - General Internal Medicine 02/12/22 documented as of this encounter
--- OUTSIDE RECORDS SUMMARY | 2025-01-18 09:48 | XMS_ITS | Clinical Summary ---
Author Organization [facility] [employer] Address [address] [place] [address] Care Team Providers Care Belt Brander Name Role Phone Denis Fan MD Primary Care Provider [phone] Source Comments [facility] [employer],non-owned Affiliates and Associated Physician Practices is amultiple site organization consisting of ambulatory clinics and hospital sitesin [place], [place], [place] and [place]. This disclosure is being madepursuant to the Care Everywhere program and may not contain all information available regarding this patient. 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 Gender Identity Not on file Sexual Orientation [...] 2020 ZOSTER VACCINE (1 of 2) 2020 COVID-19 VACCINE ( - 2023-2 5 season) 2024 DEPRESSION SCREENING 07/15/2024 SCREENING FOR DIABETES 12/13/2024 2, 12/13/2021 INFLUENZA VACCINE (#1) 2025 HIB VACCINE Aged Out No longer eligi ble based on patient's age to complete this topic HPV VACCINE Aged Out No longer eligi ble based on patient's age to complete this topic MENINGOCOCCAL (Group B) VACCINE SHARED DECISION-MAKING Aged Out No longer eligible based on patient's age to complete this topic MENINGOCOCCAL GROUPS A/C/Y/W VACCINE Aged Out No longer eligible b ased on patient's age to complete this topic Insurance MEDICAID - [facility] [place]ICAID - [place] Care Teams Belt Brander Relationship Specialty Start Date End Date Denis Fan MD [address] [place] [address] [address] [place] [address] PCP - General 02/27/22
--- OUTSIDE RECORDS SUMMARY | 2025-01-18 09:48 | XMS_ITS | Clinical Summary ---
Author Organization [facility] Address [address] [place] [address] Care Team Providers Care Chemist Biological Name Role Phone Dick Lugo MD Primary Care Provider [phone] Allergies No known active allergies Medications aspirin (ECOTRIN EC) 81 mg Tablet, Delayed Release (E.C.) Take 81 mg by mouth daily. Active ondansetron (ZOFRAN ODT) 8 mg Tablet, [...] Encounters Date Type Department Care Team Description 01/18/2025 Orders Only [facility] Oncology and Hematology - [place] [address] [place] [address] Jose Guadalupe Arita MD Malignant neoplasm of sigmoid colon (CMS/HCC) 01/12/2025 External Device Data STL ABSTRACTION Provider, Abstract 01/12/2025 Orders Only [facility] Oncology and Hematology - [place] [address] [place] [address] Jose Guadalupe Arita MD 01/05/2025 External Device Data STL ABSTRACTION Provider, Abstract 01/04/2025 Orders Only [facility] Oncology and Hematology - [place] [address] [place] [phone] Jose Guadalupe Arita MD Malignant neoplasm of sigmoid colon (CMS/HCC) 12/29/2024 External Device Data STL ABSTRACTION Provider, Abstract 12/25/2024 10:00 AM CDT Office Visit [facility] Oncology and Hematology - [place] [address] [place] [phone] Jose Guadalupe Arita MD Malignant neoplasm of sigmoid colon (CMS/HCC) (Primary Dx) 12/25/2024 Orders Only [facility] Oncology and Hematology - [place] [address] [place] [phone] Jose Guadalupe Arita MD 12/21/2024 Orders Only [facility] Oncology and Hematology - [place] [address] [place] [address] Jose Guadalupe Arita MD Malignant neoplasm of sigmoid colon (CMS/HCC) 12/08/2024 External Device Data STL ABSTRACTION Provider, Abstract 12/07/2024 Orders Only [facility] Oncology and Hematology - [place] [address] [place] [address] Jose Guadalupe Arita MD Malignant neoplasm of sigmoid colon (CMS/HCC) 12/03/2024 External Device Data STL ABSTRACTION Provider, Abstract 12/03/2024 External Device Data STL ABSTRACTION Provider, Abstract 12/03/2024 External Device Data STL ABSTRACTION Provider, Abstract 12/02/2024 External Device Data STL ABSTRACTION Provider, Abstract 12/01/2024 External Device Data STL ABSTRACTION Provider, Abstract 12/01/2024 Orders Only [facility] Oncology and Hematology - [place] [address] [place] [address] Jose Guadalupe Arita MD 11/27/2024 11:00 AM CDT Office Visit [facility] Oncology and Hematology - [place] [address] Jose Guadalupe Arita MD Malignant neoplasm of sigmoid colon (CMS/HCC) (Primary Dx) 11/23/2024 Orders Only [facility] Oncology and Hematology - [place] [address] Jose Guadalupe Arita MD Malignant neoplasm of sigmoid colon (CMS/HCC) 11/17/2024 Orders Only [facility] Oncology and Hematology - [place] [address] [place] [phone] Jose Guadalpue Arita MD 11/09/2024 Orders Only [facility] Oncology and Hematology - [place] [address] Jose Guadalupe Arita MD Malignant neoplasm of sigmoid colon (CMS/HCC) 11/02/2024 Orders Only [facility] Oncology and Hematology - [place] [address] Jose Guadalupe Arita MD 10/30/2024 9:30 AM CDT Office Visit [facility] Oncology and Hematology - [place] [address] Jose Guadalupe Arita MD Malignant neoplasm of sigmoid colon (CMS/HCC) (Primary Dx) 10/26/2024 Orders Only [facility] Oncology and Hematology - [place] [address] [place] [phone] Jose Guadalupe Arita MD Malignant neoplasm of sigmoid colon (CMS/HCC) 10/20/2024 Orders Only [facility] Oncology and Hematology - [place] [address] Jose Guadalupe Arita MD from Last 3 [...] on file 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 Gender Identity Not on file Sexual Orientation Not on file Last Filed Vital Signs Vital Sign Reading Time Taken Comments Blood Pressure 116/74 12/25/2024 9:58 AM CDT Pulse 98 12/25/2024 9:58 AM CDT Temperature 36.6 C (97.9 F) 12/25/2024 9:58 AM CDT Respiratory Rate 15 12/25/2024 9:58 AM CDT Oxygen Saturation 96% 12/25/2024 9:58 AM CDT Inhaled Oxygen Concentration - - Weight 93.4 kg (206 lb) 12/25/2024 9:58 AM CDT Height 180.3 cm (5' 11) 03/21/2023 8:33 AM CDT Body Mass Index 28.73 03/21/2023 8:33 AM CDT Plan of Treatment Upcoming Encounters Date Type Department Care Team (Late st Contact Info) Description 01/22/2025 9:00 AM CDT Office Visit [facility] Oncology and Hematology [facility] [address] [place] [address] [facility] [address] [place] [address] Jose Guadalupe Arita MD [address] [facility] [address] [place] [address] Health Maintenance Due Date Last Done Comments Pre-Diabetes and Diabetes Screening 1970 DTAP/TDAP/TD VACCINES (1 - Tdap) 1989 HEPATITIS B VACCINES (1 of 3 - 19+ 3-dose series) 08/16 ZOSTER VACCINE (1 of 2) 2020 INFLUENZA VACCINE (#1) 2025 Abdominal Aortic Aneurysm (AAA) Screening Completed 06/16/2018 Procedures Procedure Name Priority Date/Time Associated Diagnosis Comments CBC WITH DIFFERENTIAL Routine 01/11/2025 12:53 PM CDT BASIC METABOLIC PANEL Routine 12/25/2024 1:01 PM CDT COMPREHENSIVE METABOLIC PANEL Routine 12/25/2024 12:58 PM CDT COMPREHENSIVE METABOLIC PANEL Routine 11/27/2024 4:22 PM CDT BASIC METABOLIC PANEL Routine 11/27/2024 12:16 PM CDT CBC WITH DIFFERENTIAL Routine 11/27/2024 12:10 PM CDT BASIC METABOLIC PANEL Routine 11/13/2024 3:10 PM CDT CBC WITH DIFFERENTIAL Routine 11/13/2024 3:09 PM CDT COMPREHENSIVE METABOLIC PANEL Routine 10/30/2024 12:19 PM CDT BASIC METABOLIC PANEL Routine 10/30/2024 11:[address] ABDOMEN PELVIS WO CONTRAST Routine 06/16/2018 from Last 3 Months or Most Recently Relevant to Health Maintenance Results * CBC WITH DIFFERENTIAL (01/11/2025 12:53 PM CDT) Only the most recent of3 resultswithin the time period is included. Blood Jose Guadalupe Arita MD HEMATOLOGY ORDERABLES Final Res ult * BASIC METABOLIC PANEL (12/25/2024 1:01 PM CDT) Only the most recent of4 resultswithin the time period is included. Blood Jose Guadalupe Arita MD CHEMISTRY ORDERABLES Final Resu lt * COMPREHENSIVE METABOLIC PANEL (12/25/2024 12:58 PM CDT) Only the most recent of3 resultswithin the time period is included. Blood Jose Guadalupe Arita MD CHEMISTRY ORDERABLES Final Resu lt * CT ABDOMEN PELVIS WO CONTRAST (06/16/2018) Anatomical Region Laterality Modality Abdomen Computed Tomogra phy Abstract Provider CT ORDERABLES Final Result from Last 3 Months or Most Recently Relevant to Health Maintenance Insurance MEDICAID [place] MEDICARE PART A AND B Care Teams Chemist Biological Relationship Specialty Start Date End Date Dick Lugo MD [address] [facility] 4 [place] [address] PCP - General Internal Medicine 02/12/22
--- OUTSIDE RECORDS SUMMARY | 2025-01-18 09:48 | XMS_ITS | Continuity of Care Document ---
Author Organization [facility] Address [address] [place] [address] [place] [address] Phone Care Team Providers Care Lunchroom Supervisor Name Role Phone Aaron Weathers MD Unavailable Unavailable Allergies, Adverse Reactions, Alerts Substance Reaction Status Criticality No Known Allergies Active No Inform ation Procedures Procedure Date PREV VISIT, NEW, AGE 40-64 Advance Directives Directive Yes / No Effective Date File Name No Information Encounters Encounter Description Practice Location Reason(s) For Visit Diagnoses Date Provider Providers Copied on Encounter PREV VISIT, NEW, AGE 40-64 [facility], [address] [place], [id number], [place] tel:[phone] [facility] Physical (chief complaint) Encntr for general adult medical exam w/o abnormal findings Jasiel Walker. [address], [facility] [place], [id number], [place]. tel:[phone] Referring Provider: Aaron Weathers, [address] [facility] [place], [id number]. tel:[phone] Family History Family Member Type Diagnosis Age At Onset Sister Problem (finding) on heart medic ine but no heart attack and no idea what she has Father Problem (finding) heart medicine of unknown type, no heart attack Mother Problem (finding) of ovarian CA (Cau se Of ) 41 Father Problem (finding) Alive and well Payers Payer name Insurance type Covered libertarian ID Authoriza tion(s) No Information Social History [...] Mental Status Date Cognitive Assessment Orientation - [place] ed to time, place, person, situation.
== END 2025-01-18 09:38 | disposition home or self-care (01) ==
PROVIDERS: PCP Emergency Medicine; Visit Provider Internal Medicine Hematology & Oncology
DX: C77.2 Secondary and unspecified malignant neoplasm of intra-abdominal lymph nodes (principal); N13.1 Hydronephrosis with ureteral stricture, not elsewhere classified; C18.7 Malignant neoplasm of sigmoid colon
CPT/HCPCS: 71260; 74177; Q9967

== ENCOUNTER 2025-02-04 14:26 | Outpatient (CLI) | payer MEDICARE, SELFPAY ==
--- NOTE | ~2025-02-04 | US_ITS ---
EXAMINATION: US venous doppler LE RT DATE: 02/04/2025 15:35 INDICATION: Swelling TECHNIQUE: Grayscale ultrasound images without and with compression and Doppler ultrasound images of the right lower extremity veins were obtained. COMPARISON: None. FINDINGS: The visualized portions of right common femoral vein, profunda (deep) femoral vein, femoral vein, pop liteal vein, peroneal veins, posterior tibial veins, and greater saphenous vein outflow are patent. IMPRESSION: 1. No deep venous thrombosis. Reviewed, dictated and finalized at location A.
--- OUTSIDE RECORDS SUMMARY | 2025-02-04 14:30 | XMS_ITS | Encounter Summary ---
Author Organization [facility] [employer] [facility] Address [address] [place] [address] Care Team Providers Care Ruby On Rails Developer Name Role Phone Dick Lugo MD Primary Care Provider [phone] Encounter Details Date Type Department Care Team (Late Contact Info) Description 02/04/2025 Orders Only [facility] Oncology and Hematology - [place] [address] [place] [address] Jose Guadalupe Arita MD [address] [place], [place] [address] [address] [place] [address] Social History Tobacco Use Types Packs/Day Years Used Date Smoking Tobacco: Former Cigarettes 0.3 10 1 08/28/2000 - 06/27/2011 Smokeless Tobacco: Never Alcohol Use Standard Drinks/Week Comments No 0 (1 standard drink = 0.6 oz pur e alcohol) Sex and Gender Information Value Date Recorded Sex Assigned at Not on file 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 Gender Identity Not on file Sexual Orientation Not on file documented as of this encounter Plan of Treatment Upcoming Encounters Date Type Department Care Team (Late st Contact Info) Description 02/19/2025 10:00 AM CDT Office Visit [facility] Oncology and Hematology - [place] [address] [place] [address] Jose Guadalupe Arita MD [address] [facility] [employer] [address] [place] [address] documented as of this encounter Procedures Procedure Name Priority Date/Time Associated Diagnosis Comments CBC WITH DIFFERENTIAL Routine 02/01/2025 1:37 PM CDT documented in this encounter Results * CBC WITH DIFFERENTIAL (02/01/2025 1:37 PM CDT) Blood us Jose Guadalupe Arita MD HEMATOLOGY ORDERABLES Final Res ult documented in this encounter Visit Diagnoses Not on filedocumented in this encounter Care Teams Ruby On Rails Developer Relationship Specialty Start Date End Date Dick Lugo MD [address] [address] PCP - General Internal Medicine 02/12/22 documented as of this encounter
--- OUTSIDE RECORDS SUMMARY | 2025-02-04 14:30 | XMS_ITS | Encounter Summary ---
Author Organization [facility] [employer] [facility] Address [address] [place] [address] Care Team Providers Care Aircraft Communicator Name Role Phone Dick Lugo MD Primary Care Provider [phone] Encounter Details Date Type Department Care Team (Late Contact Info) Description 02/01/2025 Orders Only [facility] Oncology and Hematology - [place] [address] [place] [address] Jose Guadalupe Arita MD [address] [place] [address] Malignant neoplasm of sigmoid colon (CMS/HCC) Social History Tobacco Use Types Packs/Day Years Used Date Smoking Tobacco: Former Cigarettes 0.3 10 1 08/28/2000 - 06/27/2011 Smokeless Tobacco: Never Alcohol Use Standard Drinks/Week Comments No 0 (1 standard drink = 0.6 oz pur e alcohol) Sex and Gender Information Value Date Recorded Sex Assigned at Not on file 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 Gender Identity Not on file Sexual Orientation Not on file documented as of this encounter Plan of Treatment Upcoming Encounters Date Type Department Care Team (Late st Contact Info) Description 02/19/2025 10:00 AM CDT Office Visit [facility] Oncology and Hematology - [place] [address] [place] [address] Jose Guadaulpe Arita MD [address] [place] [address] documented as of this encounter Visit Diagnoses Diagnosis Malignant neoplasm of sigmoid colon (CMS/HCC) Malignant neoplasm of sigmoid colon documented in this encounter Care Teams Aircraft Communicator Relationship Specialty Start Date End Date Dick Lugo MD [address] [facility] 4 [place] [phone] PCP - General Internal Medicine 02/12/22 documented as of this encounter
--- OUTSIDE RECORDS SUMMARY | 2025-02-04 14:30 | XMS_ITS | Continuity of Care Document ---
Author Organization [facility] Address [address] [place] [address] [place] [address] Phone Care Team Providers Care Pipefitter Name Role Phone Aaron Weatehrs MD Unavailable Unavailable Allergies, Adverse Reactions, Alerts Substance Reaction Status Criticality No Known Allergies Active No Inform ation Procedures Procedure Date PREV VISIT, NEW, AGE 40-64 Advance Directives Directive Yes / No Effective Date File Name No Information Encounters Encounter Description Practice Location Reason(s) For Visit Diagnoses Date Provider Providers Copied on Encounter PREV VISIT, NEW, AGE 40-64 [facility], [address] [place], [place], [id number], [place] tel:[phone] [facility] Physical (chief complaint) Encntr for general adult medical exam w/o abnormal findings Jasiel Walker. [address] [employer], [facility] [place], [id number], [place]. tel:[phone] Referring Provider: Aaron Weathers, [address] [facility] [place], [id number]. tel:[phone] Family History Family Member Type Diagnosis Age At Onset Sister Problem (finding) on heart medic ine but no heart attack and no idea what she has Father Problem (finding) heart medicine of unknown type, no heart attack Mother Problem (finding) of ovarian CA (Cau se Of ) 41 Father Problem (finding) Alive and well Payers Payer name Insurance type Covered democrat ID Authoriza tion(s) No Information Social History [...] Mental Status Date Cognitive Assessment Orientation - [place] ed to time, place, person, situation.
--- OUTSIDE RECORDS SUMMARY | 2025-02-04 14:30 | XMS_ITS | Clinical Summary ---
Author Organization [facility] Address [address] [place] [address] Care Team Providers Care Game Breeding Farm Manager Name Role Phone Dick Lugo MD Primary Care Provider [phone] Allergies No known active allergies Medications aspirin [...] Encounters Date Type Department Care Team Description 02/04/2025 Orders Only [facility] Oncology and Hematology - [place] [address] [place] [address] Jose Guadalupe Arita MD 02/04/2025 Telephone [facility] Oncology and Hematology - [place] [address] [place] [address] Jose Guadalupe Arita MD Swelling in leg 02/01/2025 Orders Only [facility] Oncology and Hematology - [place] [address] [place] [address] Jose Guadalupe Arita MD Malignant neoplasm of sigmoid colon (CMS/HCC) 01/27/2025 External Device Data STL ABSTRACTION Provider, Abstract 01/27/2025 External Device Data STL ABSTRACTION Provider, Abstract 01/27/2025 External Device Data STL ABSTRACTION Provider, Abstract 01/26/2025 External Device Data STL ABSTRACTION Provider, Abstract 01/22/2025 9:00 AM CDT Office Visit [facility] Oncology and Hematology - [place] [address] [place] [address] Jose Guadalupe Arita MD Malignant neoplasm of sigmoid colon (CMS/HCC) (Primary Dx) 01/18/2025 Orders Only [facility] Oncology and Hematology - [place] [address] [place] [address] Jose Guadalupe Arita MD Malignant neoplasm of sigmoid colon (CMS/HCC) 01/12/2025 External Device Data STL ABSTRACTION Provider, Abstract 01/12/2025 Orders Only [facility] Oncology and Hematology - [place] [address] [place] [address] Jose Guadalupe Arita MD 01/05/2025 External Device Data STL ABSTRACTION Provider, Abstract 01/04/2025 Orders Only [facility] Oncology and Hematology - [place] [address] [place] [address] Jose Guadalupe Arita MD Malignant neoplasm of sigmoid colon (CMS/HCC) 12/29/2024 External Device Data STL ABSTRACTION Provider, Abstract 12/25/2024 10:00 AM CDT Office Visit [facility] Oncology and Hematology - [place] [address] [place] [address] Jose Guadalupe Arita MD Malignant neoplasm of sigmoid colon (CMS/HCC) (Primary Dx) 12/25/2024 Orders Only [facility] Oncology and Hematology - [place] [address] [place] [address] Jose Guadalupe Arita MD 12/21/2024 Orders Only [facility] Oncology and Hematology - [place] [address] [place] [address] Jose Guadalupe Arita MD Malignant neoplasm of sigmoid colon (CMS/HCC) 12/08/2024 External Device Data STL ABSTRACTION Provider, Abstract 12/07/2024 Orders Only [facility] Oncology and Hematology - [place] [address] [place] [address] Jose Guadalupe Arita MD Malignant neoplasm of sigmoid colon (CMS/HCC) 12/03/2024 External Device Data STL ABSTRACTION Provider, Abstract 12/03/2024 External Device Data STL ABSTRACTION Provider, Abstract 12/03/2024 External Device Data STL ABSTRACTION Provider, Abstract 12/02/2024 External Device Data STL ABSTRACTION Provider, Abstract 12/01/2024 External Device Data STL ABSTRACTION Provider, Abstract 12/01/2024 Orders Only [facility] Oncology and Hematology - [place] [address] [place] [address] Jose Guadalupe Arita MD 11/27/2024 11:00 AM CDT Office Visit [facility] Oncology and Hematology - [place] [address] [place] [address] Jose Guadalupe Arita MD Malignant neoplasm of sigmoid colon (CMS/HCC) (Primary Dx) 11/23/2024 Orders Only [facility] Oncology and Hematology - [place] [address] [place] [address] Jose Guadalupe Arita MD Malignant neoplasm of sigmoid colon (CMS/HCC) 11/17/2024 Orders Only [facility] Oncology and Hematology - [place] [address] [place] [address] Jose Guadalupe Arita MD 11/09/2024 Orders Only [facility] Oncology and Hematology - [place] [address] [place] [address] Jose Guadalupe Arita MD Malignant neoplasm of sigmoid colon (CMS/HCC) from Last 3 Months Family History Medical [...] on file 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 Gender Identity Not on file Sexual Orientation Not on file Last Filed Vital Signs Vital Sign Reading Time Taken Comments Blood Pressure 118/75 01/22/2025 8:53 AM CDT Pulse 98 01/22/2025 8:53 AM CDT Temperature 35.9 C (96.7 F) 01/22/2025 8:53 AM CDT Respiratory Rate 16 01/22/2025 8:53 AM CDT Oxygen Saturation 98% 01/22/2025 8:53 AM CDT Inhaled Oxygen Concentration - - Weight 97.5 kg (215 lb) 01/22/2025 8:53 AM CDT Height 180.3 cm (5' 11) 03/21/2023 8:33 AM CDT Body Mass Index 29.99 03/21/2023 8:33 AM CDT Plan of Treatment Upcoming Encounters Date Type Department Care Team (Late st Contact Info) Description 02/19/2025 10:00 AM CDT Office Visit [facility] Oncology and Hematology - [place] [address] [facility] [address] [place] [address] Jose Guadalupe Arita MD [address] [facility] [address] [place] [address] Health Maintenance Due Date Last [...] WITH DIFFERENTIAL Routine 02/01/2025 1:37 PM CDT CBC WITH DIFFERENTIAL Routine 01/11/2025 12:53 PM [...] WITH DIFFERENTIAL Routine 11/13/2024 3:[address] ABDOMEN PELVIS WO CONTRAST Routine 06/16/2018 from Last 3 Months or Most Recently Relevant to Health Maintenance Results * CBC WITH DIFFERENTIAL (02/01/2025 1:37 PM CDT) Only the most recent of4 resultswithin the time period is included. Blood us Jose Guadalupe Arita MD HEMATOLOGY ORDERABLES Final Res ult * BASIC METABOLIC PANEL (12/25/2024 1:01 PM CDT) Only the most recent of3 resultswithin the time period is included. Blood us Jose Guadalupe Arita MD CHEMISTRY ORDERABLES Final Resu lt * COMPREHENSIVE METABOLIC PANEL (12/25/2024 12:58 PM CDT) Only the most recent of2 resultswithin the time period is included. Blood us Jose Guadalupe Arita MD CHEMISTRY ORDERABLES Final Resu lt * CT ABDOMEN PELVIS WO CONTRAST (06/16/2018) Anatomical Region Laterality Modality Abdomen Computed Tomogra phy us Abstract Provider CT ORDERABLES Final Result from Last 3 Months or Most Recently Relevant to Health Maintenance Insurance MEDICAID [place] MEDICARE PART A AND B Care Teams Game Breeding Farm Manager Relationship Specialty Start Date End Date Dick Lugo MD [address] [facility] 4 [place] [address] PCP - General Internal Medicine 02/12/22
--- OUTSIDE RECORDS SUMMARY | 2025-02-04 14:30 | XMS_ITS | Clinical Summary ---
Author Organization [facility] Address [address] [place] [address] Care Team Providers Care Grease Machine Worker Name Role Phone Denis Fan MD Primary Care Provider Source Comments [facility],non-owned Affiliates and Associated Physician Practices is amultiple site organization consisting of ambulatory clinics and hospital sitesin [place], [place], [place] and [place]. This disclosure is being madepursuant to the Care Everywhere program and may not contain all information available regarding this patient. 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
--- OUTSIDE RECORDS SUMMARY | 2025-02-04 14:30 | XMS_ITS | Encounter Summary ---
Author Organization [facility] Address [address] [place] [address] Care Team Providers Care State Director Name Role Phone Dick Lugo MD Primary Care Provider [phone] Reason for Referral * Radiology Services (Urgent) - Closed Specialty Diagnoses / Procedures Referred By Contac t Referred To Contact Diagnoses Swelling of lower leg Procedures US VENOUS DOPPLER LEG RIGHT Jose Guadalupe Arita MD [address] [place] [address] Phone: tel: fax: [place] [phone] Referral ID Status Reason Start Date Expiration Date V isits Requested Visits Authorized [id number] Closed [facility] CTS 02/04/2025 03/07/2026 1 1 Reason for Visit * Reason Onset Date Comments Swelling in leg 02/04/2025 Encounter Details Date Type Department Care Team (Late st Contact Info) Description 02/04/2025 Telephone [facility]3] Oncology and Hematology - [place] [address] 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 Starting at the groin area and goingall the way down. There is no redness or pain when he walks. We will order US for patient just to make sure everything is ok. Will look for the results to come back. documented in this encounter Plan of Treatment Upcoming Encounters Date Type Department Care Team (Late st Contact Info) Description 02/19/2025 10:00 AM CDT Office Visit [facility]3] Oncology and Hematology - [place] [address] [place] [address] [address] [place] [phone] Jose Guadalupe Arita MD [address] [facility] [address] [place] [address] Scheduled Orders Name Type Priority Associated Diagnoses Orde r Schedule US VENOUS DOPPLER LEG RIGHT Imaging Stat Swelling of lower leg Expected: 02/04/2025, Expires: 02/04/2026 documented as of this encounter Visit Diagnoses Diagnosis Swelling of lower leg- Primary documented in this encounter Care Teams State Director Relationship Specialty Start Date End Date Dick Lugo MD [address] [facility] 4 [place] [address] PCP - General Internal Medicine 02/12/22 documented as of this encounter
== END 2025-02-04 14:27 | disposition home or self-care (01) ==
PROVIDERS: PCP Emergency Medicine; Visit Provider Internal Medicine Hematology & Oncology
DX: M79.89 Other specified soft tissue disorders (principal)
CPT/HCPCS: 93971

== ENCOUNTER 2025-02-15 11:28 | Outpatient (CLI) | payer MEDICARE, SELFPAY ==
--- NOTE | ~2025-02-15 | XR_ITS ---
EXAMINATION: XR fl port a cath w contrast DATE: 02/15/2025 12:44 INDICATION: Malignant neoplasm of the sigmoid colon. Nonfunctioning port catheter. TECHNIQUE: Real-time fluoroscopy was utilized prior to attempted contrast injection into the patient' s port catheter. No fluid was able to be either aspirated or flushed into the port catheter precludin g the planned contrast injection. A single fluoroscopic image of the chest was recorded. The amount o f fluoroscopy time used during this procedure was 3.1 minutes. Total DAP was 0.312 Gym^2. COMPARISON: None. FINDINGS: Right internal jugular central venous port catheter with distal tip near the superior cavoatrial junc tion. No kinks or discontinuities were observed along the course of the catheter with real-time fluor oscopy. Calcified nodules in the right lower lung zone consistent with old granulomatous disease. IMPRESSION: 1. Right internal jugular central venous port catheter in expected position with distal tip at the rodriguez perior cavoatrial junction. 2. Catheter was unable to be flushed with saline which precluded contrast injection for further evalu ation. Reviewed, dictated and finalized at location A. IMPRESSION: 1. Right internal jugular central venous port catheter in expected position wit h distal tip at the superior cavoatrial junction. 2. Catheter was unable to be flushed with saline which precluded contrast injec tion for further evaluation.
--- OUTSIDE RECORDS SUMMARY | 2025-02-15 12:00 | XMS_ITS | Clinical Summary ---
Author Organization [facility] Address [address] [place] [address] Care Team Providers Care Salesperson Household Appliances Name Role Phone Dick Lugo MD Primary Care Provider Allergies No known active allergies Medications aspirin [...] Encounters Date Type Department Care Team Description 02/15/2025 Orders Only [facility] Oncology and Hematology - [place] [address] [place] [address] Jose Guadalupe Arita MD Malignant neoplasm of sigmoid colon (CMS/HCC) 02/09/2025 Orders Only [facility] Oncology and Hematology - [place] [address] [place] [address] Jose Guadalupe Arita MD 02/08/2025 Orders Only [facility] Oncology and Hematology - [place] [address] [place] [phone] Jose Guadalupe Arita MD Malignant neoplasm of sigmoid colon (CMS/HCC) (Primary Dx) 02/08/2025 Telephone [facility] Oncology and Hematology - [place] [address] [place] [phone] Jose Guadalupe Arita MD US Results 02/08/2025 Orders Only [facility] Oncology and Hematology - [place] [address] [place] [address] Jose Guadalupe Arita MD 02/05/2025 Orders Only [facility] Oncology and Hematology - [place] [address] [place] [address] Jose Guadalupe Arita MD 02/04/2025 Orders Only [facility] Oncology and Hematology - [place] [address] [place] [address] Jose Guadalupe Arita MD 02/04/2025 Telephone [facility] Oncology and Hematology - [place] [address] [place] [address] Jose Guadalupe Arita MD Swelling in leg 02/01/2025 Orders Only [facility] Oncology and Hematology - [place] [address] [place] [address] Jose Guadalupe Arita MD Malignant neoplasm of sigmoid colon (CMS/HCC) 01/27/2025 External Device Data STL ABSTRACTION Provider, Abstract 01/27/2025 External Device Data STL ABSTRACTION Provider, Abstract 01/27/2025 External Device Data STL ABSTRACTION Provider, Abstract 01/26/2025 External Device Data STL ABSTRACTION Provider, Abstract 01/22/2025 9:00 AM CDT Office Visit [facility] Oncology and Hematology - [place] [address] [place] [address] Jose Guadalupe Arita MD Malignant neoplasm of sigmoid colon (CMS/HCC) (Primary Dx) 01/18/2025 Orders Only [facility] Oncology and Hematology - [place] [address] [place] [address] Jose Guadalupe Arita MD Malignant neoplasm of sigmoid colon (CMS/HCC) 01/12/2025 External Device Data STL ABSTRACTION Provider, Abstract 01/12/2025 Orders Only [facility] Oncology and Hematology - [place] [address] [place] [address] Jose Guadalupe Arita MD 01/05/2025 External Device Data STL ABSTRACTION Provider, Abstract 01/04/2025 Orders Only [facility] Oncology and Hematology - [place] [address] [place] [address] Jose Guadalupe Arita MD Malignant neoplasm of sigmoid colon (CMS/HCC) 12/29/2024 External Device Data STL ABSTRACTION Provider, Abstract 12/25/2024 10:00 AM CDT Office Visit [facility] Oncology and Hematology - [place] [address] [place] [address] Jose Guadalupe Arita MD Malignant neoplasm of sigmoid colon (CMS/HCC) (Primary Dx) 12/25/2024 Orders Only [facility] Oncology and Hematology - [place] [address] [place] [address] Jose Guadalupe Arita MD 12/21/2024 Orders Only [facility] Oncology and Hematology - [place] [address] [place] [address] Jose Guadalupe Arita MD Malignant neoplasm of sigmoid colon (CMS/HCC) 12/08/2024 External Device Data STL ABSTRACTION Provider, Abstract 12/07/2024 Orders Only [facility] Oncology and Hematology - [place] [address] [place] [address] Jose Guadalupe Arita MD Malignant neoplasm of sigmoid colon (CMS/HCC) 12/03/2024 External Device Data STL ABSTRACTION Provider, Abstract 12/03/2024 External Device Data STL ABSTRACTION Provider, Abstract 12/03/2024 External Device Data STL ABSTRACTION Provider, Abstract 12/02/2024 External Device Data STL ABSTRACTION Provider, Abstract 12/01/2024 External Device Data STL ABSTRACTION Provider, Abstract 12/01/2024 Orders Only [facility] Oncology and Hematology [facility] [address] [place] [address] Jose Guadalupe Arita MD 11/27/2024 11:00 AM CDT Office Visit [facility] Oncology [facility] [address] [place] [address] Jose Guadalupe Arita MD Malignant neoplasm of sigmoid colon (CMS/HCC) (Primary Dx) 11/23/2024 Orders Only [facility] Oncology [facility] Hematology [facility] [address] [place] [address] Jose Guadalupe Arita MD Malignant neoplasm of sigmoid colon (CMS/HCC) 11/17/2024 Orders Only [facility] Oncology and Hematology 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 Gender Identity Not on file Sexual Orientation [...] Description 02/19/2025 10:00 AM CDT Office Visit [facility] Oncology and Hematology - [place] [address] [facility] [address] [place] [address] Jose Guadalupe Arita MD [address] [facility] [address] [place] [address] Health Maintenance Due Date Last Done Comments Pre-Diabetes and Diabetes Screening 1970 DTAP/TDAP/TD VACCINES (1 - Tdap) 1989 HEPATITIS B VACCINES (1 of 3 - 19+ 3-dose series) 08/16 ZOSTER VACCINE (1 of 2) 2020 INFLUENZA VACCINE (#1) 2025 Abdominal Aortic Aneurysm (AAA) Screening Completed 06/16/2018 Procedures Procedure Name Priority Date/Time Associated Diagnosis Comments BASIC METABOLIC PANEL Routine 02/05/2025 1:53 PM CDT CBC WITH DIFFERENTIAL Routine 02/05/2025 1:52 PM CDT COMPREHENSIVE METABOLIC PANEL Routine 02/05/2025 1:07 PM CDT US VENOUS DOPPLER LEG RIGHT Routine 02/04/2025 8:36 AM CDT CBC WITH DIFFERENTIAL Routine 02/01/2025 1:37 PM CDT CBC WITH DIFFERENTIAL Routine 01/11/2025 12:53 PM CDT BASIC METABOLIC PANEL Routine 12/25/2024 1:01 PM CDT COMPREHENSIVE METABOLIC PANEL Routine 12/25/2024 12:58 PM CDT COMPREHENSIVE METABOLIC PANEL Routine 11/27/2024 4:22 PM CDT BASIC METABOLIC PANEL Routine 11/27/2024 12:16 PM CDT CBC WITH DIFFERENTIAL Routine 11/27/2024 12:[address] ABDOMEN PELVIS WO CONTRAST Routine 06/16/2018 from Last 3 Months or Most Recently Relevant to Health Maintenance Results * BASIC METABOLIC PANEL (02/05/2025 1:53 PM CDT) Only the most recent of3 resultswithin the time period is included. Blood Jose Guadalupe Arita MD CHEMISTRY ORDERABLES Final Resu lt * CBC WITH DIFFERENTIAL (02/05/2025 1:52 PM CDT) Only the most recent of4 resultswithin the time period is included. Blood us Jose Guadalupe Arita MD HEMATOLOGY ORDERABLES Final Res ult * COMPREHENSIVE METABOLIC PANEL (02/05/2025 1:07 PM CDT) Only the most recent of3 resultswithin the time period is included. Blood us Jose Guadalupe Arita MD CHEMISTRY ORDERABLES Final Resu lt * US VENOUS DOPPLER LEG RIGHT (02/04/2025 8:36 AM CDT) Anatomical Region Laterality Modality Lower Extremity Ultrasound us Jose Guadalupe Arita MD US ORDERABLES Final Result * CT ABDOMEN PELVIS WO CONTRAST (06/16/2018) Anatomical Region Laterality Modality Abdomen Computed Tomogra phy Abstract Provider CT ORDERABLES Final Result from Last 3 Months or Most Recently Relevant to Health Maintenance Insurance MEDICAID [place] Member Subscriber Plan / Payer (Ef fective 2023-Present) Name:Joaquin Petersen Relation to Subscriber:Self Name:Joaquin Petersen Payer ID:Not on file Group ID:Not on file Type:Medicaid Address: [place] [id number] MEDICARE PART A AND B Care Teams Salesperson Household Appliances Relationship Specialty Start Date End Date Dick Lugo MD [address] [phone] PCP - General Internal Medicine 02/12/22
--- OUTSIDE RECORDS SUMMARY | 2025-02-15 12:00 | XMS_ITS | Encounter Summary ---
Author Organization [facility] Address [address] [place] [address] Care Team Providers Care Co Supervisor Grounds And Landscape Name Role Phone Dick Lugo MD Primary Care Provider [phone] Encounter Details Date Type Department Care Team (Late Contact Info) Description 02/15/2025 Orders Only [facility] Oncology and Hematology - [place] [address] [place] [address] Jose Guadalupe Arita MD [address] [place] [address] Malignant neoplasm of sigmoid colon (CMS/HCC) Social History Tobacco Use Types Packs/Day Years Used Date Smoking Tobacco: Former Cigarettes 0.3 10 1 08/28/2000 - 06/27/2011 Smokeless Tobacco: Never Alcohol Use Standard Drinks/Week Comments No 0 (1 standard drink = 0.6 oz pur e alcohol) Sex and Gender Information Value Date Recorded Sex Assigned at Not on file 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 Gender Identity Not on file Sexual Orientation Not on file documented as of this encounter Plan of Treatment Upcoming Encounters Date Type Department Care Team (Late st Contact Info) Description 02/19/2025 10:00 AM CDT Office Visit [facility] Oncology and Hematology - [place] [address] [place] [address] Jose Guadalupe Arita MD [address] [place] [address] documented as of this encounter Visit Diagnoses Diagnosis Malignant neoplasm of sigmoid colon (CMS/HCC) Malignant neoplasm of sigmoid colon documented in this encounter Care Teams Co Supervisor Grounds And Landscape Relationship Specialty Start Date End Date Dick Lugo MD [address] [facility] 4 [place] [address] PCP - General Internal Medicine 02/12/22 documented as of this encounter
--- OUTSIDE RECORDS SUMMARY | 2025-02-15 12:00 | XMS_ITS | Clinical Summary ---
Author Organization [facility] [employer] Address [address] [place] [address] Care Team Providers Care Pallet Stone Positioner Name Role Phone Denis Fan MD Primary Care Provider [phone] Source Comments [facility] [employer],non-owned Affiliates and Associated Physician Practices is amultiple site organization consisting of ambulatory clinics and hospital sitesin [place], [place], [place] and [place]. This disclosure is being madepursuant to the Care Everywhere program and may not contain all information available regarding this patient. Last updated 18.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
== END 2025-02-15 11:29 | disposition home or self-care (01) ==
PROVIDERS: PCP Emergency Medicine; Visit Provider Internal Medicine Hematology & Oncology
DX: C18.7 Malignant neoplasm of sigmoid colon (principal); T82.514A Breakdown (mechanical) of infusion catheter, initial encounter; Z95.828 Presence of other vascular implants and grafts
CPT/HCPCS: 36598